=== PATIENT | female | born 1940 | race African-American/Black ===

== ENCOUNTER 2017-03-20 10:08 | Emergency (ER) | payer MEDICARE, BC ==
[~2017-03-20] VITALS: Ht 167.6 cm; Wt 100.0 kg
[~2017-03-20 10:08] MED LIST: ASPI-1159 PO; ATOR20TA PO; HYDR-3735 PO; LATA2.5D2 EACHEYE; LEVVL SQ; MECL25TA3 PO; NEBI10TA2 PO; NIFE60TA10 PO; OXYC-104 PO
[2017-03-20] MEDS ORDERED: ONDANSETRON HCL 4MG/2ML VIAL IV STA (11:29)
[2017-03-20] MEDS ORDERED: KETOROLAC 30MG/ML VIAL IV STA (11:29)
[2017-03-20 12:32] LABS: BASOPHILS % 1.1 % (0.0-2.0); EOSINOPHILS % 1.2 % (0.0-5.0); HEMATOCRIT. 33.9 % (36.0-48.0); HEMOGLOBIN. 11.3 g/dL (12.0-16.0); MEAN CORPUSCULAR HEMOGLOBIN 30.1 pg (28.0-32.0); MEAN CORPUSCULAR VOLUME 89.9 fL (81.0-99.0); MEAN PLATELET VOLUME 8.1 fl (7.4-10.4); MONOCYTES % 6.9 % (2.0-8.0); NEUTROPHILS % 63.8 % (40.0-76.0); PLATELET 217 x1000/uL (130-400); RED BLOOD CELL COUNT 3.77 mill/uL (4.2-5.4); RED CELL DISTRIBUTION WIDTH 14.8 % (11.6-14.6)
[2017-03-20 12:42] LABS: CHLORIDE 110 mEq/L (98-107)
[2017-03-20 12:44] LABS: D-DIMER 1.79 mg/L FEU (<0.50); INR 1.1; PARTIAL THROMBOPLASTIN TIME 28.4 sec (23.4-31.0); PROTHROMBIN TIME 11.2 sec (9.4-11.6)
[2017-03-20 12:50] LABS: CARBON DIOXIDE 23 mEq/L (21-32); TROPONIN I < 0.02 ng/mL (0.00-0.04)
[2017-03-20] MEDS ORDERED: ONDANSETRON HCL 4MG/2ML VIAL IV ONE (13:15)
[2017-03-20] MEDS ORDERED: MORPHINE SULFATE 4 MG/ML CPJ (NOT FOR IM USE) IV ONE (13:15)
[2017-03-20 15:08] LABS: CLARITY URINE CLEAR (CLEAR); COLOR URINE YELLOW (YELLOW); GLUCOSE URINE NEGATIVE (NEGATIVE); KETONES URINE NEGATIVE (NEGATIVE); LEUKOCYTE ESTERASE URINE TRACE (NEGATIVE); NITRITE URINE NEGATIVE (NEGATIVE); OCCULT BLOOD URINE NEGATIVE (NEGATIVE); PH URINE 6.5 (4.5-8.0); PROTEIN URINE 3+ (NEGATIVE); SPECIFIC GRAVITY URINE 1.015 (1.005-1.030); UROBILINOGEN URINE 0.2 E.U./dL (0.2-1.0)
[2017-03-20 15:54] VITALS: BP 162/76
== END 2017-03-20 16:08 | disposition home or self-care (01) ==
LOC: ER 11:00 → SUPCPDRO 13:24 → ER 16:08
DX: R07.89 Other chest pain (principal); N64.4 Mastodynia; N18.9 Chronic kidney disease, unspecified; E11.22 Type 2 diabetes mellitus with diabetic chronic kidney disease; I12.9 Hypertensive chronic kidney disease with stage 1 through stage 4 chronic kidney disease, or unspecified chronic kidney disease; Z79.4 Long term (current) use of insulin; Z79.82 Long term (current) use of aspirin; Z88.5 Allergy status to narcotic agent; Z96.659 Presence of unspecified artificial knee joint
CPT/HCPCS: 36415; 71010; 78582; 80053; 81001; 83690; 83880; 84484; 85025; 85379; 85610; 85730; 93005; 96374; 96375; 96376; 99285; A9540; A9558; J1885; J2270; J2405

== ENCOUNTER 2018-08-08 20:53 | Inpatient (IN) | payer MEDICARE, BC ==
[~2018-08-08] VITALS: Ht 182.9 cm; Wt 90.7 kg
[2018-08-08 22:09] LABS: BASOPHILS % 1.2 % (0.0-2.0); EOSINOPHILS % 4.7 % (0.0-5.0); HEMATOCRIT. 32.1 % (36.0-48.0); HEMOGLOBIN. 10.2 g/dL (12.0-16.0); LYMPHOCYTES % 32.3 % (20.0-50.0); MEAN CORPUSCULAR HEMOGLOBIN 29.7 pg (28.0-32.0); MEAN CORPUSCULAR VOLUME 92.9 fL (81.0-99.0); MEAN PLATELET VOLUME 7.9 fl (7.4-10.4); MONOCYTES % 9.9 % (2.0-8.0); NEUTROPHILS % 51.9 % (40.0-76.0); PLATELET 280 x1000/uL (130-400); RED BLOOD CELL COUNT 3.45 mill/uL (4.2-5.4); RED CELL DISTRIBUTION WIDTH 16.3 % (11.6-14.6)
[2018-08-08 22:15] LABS: CHLORIDE 109 mEq/L (98-107)
[2018-08-08 22:18] LABS: ETHANOL BLOOD < 10 mg/dL
[2018-08-08 23:45] LABS: CLARITY URINE CLEAR (CLEAR); COLOR URINE YELLOW (YELLOW); KETONES URINE NEGATIVE (NEGATIVE); LEUKOCYTE ESTERASE URINE 1+ (NEGATIVE); NITRITE URINE NEGATIVE (NEGATIVE); OCCULT BLOOD URINE TRACE (NEGATIVE); PROTEIN URINE 3+ (NEGATIVE); SPECIFIC GRAVITY URINE 1.019 (1.005-1.030); UROBILINOGEN URINE 0.2 E.U./dL (0.2-1.0)
[2018-08-08 23:55] LABS: *AMPHETAMINES SCREEN URINE NEGATIVE (NEGATIVE); *BARBITURATES SCREEN URINE NEGATIVE (NEGATIVE); *BENZODIAZEPINES SCREEN URINE NEGATIVE (NEGATIVE); *COCAINE SCREEN URINE NEGATIVE (NEGATIVE)
[2018-08-08 23:56] LABS: CANNABINOID URINE SCREEN NEGATIVE (NEGATIVE); METHADONE URINE SCREEN NEGATIVE (NEGATIVE); OPIATES URINE SCREEN PRESUMTIVE POSITIVE (NEGATIVE); PHENCYCLIDINE URINE SCREEN NEGATIVE (NEGATIVE)
[2018-08-09] MEDS ORDERED: IPRATROPIUM/ALBUTEROL 0.5-3(2.5)MG/3ML NEB INH PRN (01:00)
[2018-08-09] MEDS ORDERED: ACETAMINOPHEN 325MG TABLET PO PRN (01:00)
[2018-08-09] MEDS ORDERED: HYDROCODONE/ACETAMINOPHEN 5/325MG TABLET PO PRN (01:00)
[2018-08-09] MEDS ORDERED: MAGNESIUM/ALUMINUM HYDROXIDE/SIMETHICONE 30ML UDC PO PRN (01:00)
[2018-08-09] MEDS ORDERED: DOCUSATE SODIUM 100MG CAPSULE PO PRN (01:00)
[2018-08-09] MEDS ORDERED: NA PHOS,M-B/NA PHOS,DI-BA ENEMA 118ML PR PRN (01:00)
[2018-08-09] MEDS ORDERED: ACETAMINOPHEN 650MG/20.3ML UDC GT PRN (01:00)
[2018-08-09] MEDS ORDERED: ONDANSETRON HCL 4MG/2ML INJ IV PRN (01:00)
[2018-08-09] MEDS ORDERED: ACETAMINOPHEN 650MG SUPP PR PRN (01:00)
[2018-08-09] MEDS ORDERED: HYDROCODONE/ACETAMINOPHEN 10/325MG TABLET PO PRN (01:00)
[2018-08-09] MEDS: CLONIDINE 0.1MG TABLET PO PRN (01:46)
[2018-08-09 01:50] VITALS: BP 112/58
[2018-08-09] MEDS ORDERED: ACET-2178 MT (03:22)
[2018-08-09 04:00] VITALS: BP 113/63
[2018-08-09] MEDS: SODIUM CHLORIDE 0.45% 1,000 ML IV SCH ×2 (04:45→21:22)
[2018-08-09] MEDS: SODIUM CHLORIDE 0.9% INJ 3ML FLUSH IVF SCH ×3 (06:13→21:21)
[2018-08-09] MEDS ORDERED: DEXTROSE 50% WATER 50ML SYRINGE IV PRN (07:00)
[2018-08-09] MEDS: BLOOD SUGAR DIAGNOSTIC STRIP TEST SCH ×4 (07:27→21:20)
[2018-08-09] MEDS: INSULIN LISPRO 100 UNITS/ML SUBCUT SCH ×4 (07:27→21:00)
[2018-08-09 08:38] VITALS: BP 115/44
[2018-08-09] MEDS: ENOXAPARIN 30MG/0.3ML SYR SUBCUT SCH (09:53)
[2018-08-09 12:12] VITALS: BP 132/67
[2018-08-09] MEDS: AMLODIPINE 2.5MG TABLET PO SCH ×2 (13:18→21:20)
[2018-08-09 16:14] VITALS: BP 151/63
[2018-08-09 16:36] LABS: CHLORIDE 109 mEq/L (98-107)
[2018-08-09 16:45] LABS: EOSINOPHILS % 5.1 % (0.0-5.0); HEMOGLOBIN. 9.5 g/dL (12.0-16.0); LYMPHOCYTES % 43.6 % (20.0-50.0); MEAN CORPUSCULAR HEMOGLOBIN 29.7 pg (28.0-32.0); MEAN CORPUSCULAR VOLUME 93.7 fL (81.0-99.0); MEAN PLATELET VOLUME 8.4 fl (7.4-10.4); MONOCYTES % 10.3 % (2.0-8.0); PLATELET 241 x1000/uL (130-400); RED CELL DISTRIBUTION WIDTH 16.3 % (11.6-14.6)
[2018-08-09 20:00] VITALS: BP 144/75
[2018-08-09] MEDS: PANTOT AC/MIN OIL/PET HY-PHL OINT (AQUAPHOR) TOP SCH (21:22)
[2018-08-10] VITALS: BP 135/76
[2018-08-10 04:00] VITALS: BP 135/87
[2018-08-10] MEDS: SODIUM CHLORIDE 0.9% INJ 3ML FLUSH IVF SCH ×3 (06:00→22:00)
[2018-08-10] MEDS: BLOOD SUGAR DIAGNOSTIC STRIP TEST SCH ×4 (06:11→20:36)
[2018-08-10] MEDS: SODIUM CHLORIDE 0.45% 1,000 ML IV SCH ×2 (06:11→20:00)
[2018-08-10] MEDS: INSULIN LISPRO 100 UNITS/ML SUBCUT SCH ×4 (07:37→21:00)
[2018-08-10 08:00] VITALS: BP 188/78
[2018-08-10] MEDS: ENOXAPARIN 30MG/0.3ML SYR SUBCUT SCH (09:48)
[2018-08-10] MEDS: CLONIDINE 0.1MG TABLET PO PRN (09:48)
[2018-08-10] MEDS: AMLODIPINE 2.5MG TABLET PO SCH ×2 (09:48→21:00)
[2018-08-10] MEDS: PANTOT AC/MIN OIL/PET HY-PHL OINT (AQUAPHOR) TOP SCH ×2 (09:49→21:00)
[2018-08-10 10:02] LABS: BASOPHILS % 1.6 % (0.0-2.0); EOSINOPHILS % 5.2 % (0.0-5.0); HEMATOCRIT. 34.1 % (36.0-48.0); HEMOGLOBIN. 10.8 g/dL (12.0-16.0); LYMPHOCYTES % 29.6 % (20.0-50.0); MEAN CORPUSCULAR HEMOGLOBIN 29.6 pg (28.0-32.0); MEAN CORPUSCULAR VOLUME 93.7 fL (81.0-99.0); MEAN PLATELET VOLUME 8.1 fl (7.4-10.4); MONOCYTES % 11.2 % (2.0-8.0); NEUTROPHILS % 52.4 % (40.0-76.0); PLATELET 257 x1000/uL (130-400); RED BLOOD CELL COUNT 3.64 mill/uL (4.2-5.4); RED CELL DISTRIBUTION WIDTH 16.3 % (11.6-14.6)
[2018-08-10 10:27] LABS: CHLORIDE 107 mEq/L (98-107)
[2018-08-10 10:37] LABS: LDL CHOLESTEROL 73 mg/dL (5-100)
[2018-08-10 10:40] LABS: HDL CHOLESTEROL 66 mg/dL (40-59)
[2018-08-10 12:00] VITALS: BP 163/53
[2018-08-10] MEDS ORDERED: CALCIUM CARBONATE 500MG TABLET CHEW PO PRN (13:00)
[2018-08-10] MEDS ORDERED: NYSTATIN POWDER 15GM TOP SCH (13:00)
[2018-08-10] MEDS ORDERED: NEBIVOLOL HCL 5 MG TABLET PO SCH (14:45)
[2018-08-10] MEDS ORDERED: HYDRALAZINE 20MG/ML VIAL IV PRN (14:45)
[2018-08-10] MEDS: NYSTATIN POWDER 15GM TOP SCH ×2 (15:06→17:00)
[2018-08-10] MEDS: TRAMADOL 50MG TABLET PO PRN (15:07)
[2018-08-10] MEDS: NEBIVOLOL HCL 5 MG TABLET PO SCH ×2 (15:15→22:00)
[2018-08-10 16:00] VITALS: BP 166/77
[2018-08-10 20:00] VITALS: BP 110/80
[2018-08-10 21:51] LABS: CLARITY URINE CLEAR (CLEAR); COLOR URINE YELLOW (YELLOW); KETONES URINE NEGATIVE (NEGATIVE); LEUKOCYTE ESTERASE URINE NEGATIVE (NEGATIVE); NITRITE URINE NEGATIVE (NEGATIVE); OCCULT BLOOD URINE NEGATIVE (NEGATIVE); PROTEIN URINE 2+ (NEGATIVE); SPECIFIC GRAVITY URINE 1.012 (1.005-1.030); UROBILINOGEN URINE 0.2 E.U./dL (0.2-1.0)
[2018-08-11] VITALS: BP 136/59
[2018-08-11 04:00] VITALS: BP 110/86
[2018-08-11] MEDS: BLOOD SUGAR DIAGNOSTIC STRIP TEST SCH ×4 (07:30→20:48)
[2018-08-11] MEDS: INSULIN LISPRO 100 UNITS/ML SUBCUT SCH ×4 (07:31→21:00)
[2018-08-11 08:00] VITALS: BP 177/71
[2018-08-11 08:11] LABS: CHLORIDE 108 mEq/L (98-107)
[2018-08-11 08:19] LABS: BASOPHILS % 0.9 % (0.0-2.0); EOSINOPHILS % 5.9 % (0.0-5.0); HEMATOCRIT. 28.8 % (36.0-48.0); HEMOGLOBIN. 9.2 g/dL (12.0-16.0); LYMPHOCYTES % 31.5 % (20.0-50.0); MEAN CORPUSCULAR HEMOGLOBIN 29.9 pg (28.0-32.0); MEAN CORPUSCULAR VOLUME 93.3 fL (81.0-99.0); MEAN PLATELET VOLUME 8.2 fl (7.4-10.4); MONOCYTES % 12.1 % (2.0-8.0); NEUTROPHILS % 49.6 % (40.0-76.0); PLATELET 235 x1000/uL (130-400); RED BLOOD CELL COUNT 3.08 mill/uL (4.2-5.4); RED CELL DISTRIBUTION WIDTH 15.6 % (11.6-14.6)
[2018-08-11 09:53] LABS: PHOSPHORUS 4.2 mg/dL (2.5-4.9)
[2018-08-11] MEDS: PANTOT AC/MIN OIL/PET HY-PHL OINT (AQUAPHOR) TOP SCH ×2 (10:47→21:00)
[2018-08-11] MEDS: AMLODIPINE 2.5MG TABLET PO SCH ×2 (10:47→21:00)
[2018-08-11] MEDS: NYSTATIN POWDER 15GM TOP SCH ×3 (10:47→17:20)
[2018-08-11] MEDS: NEBIVOLOL HCL 5 MG TABLET PO SCH ×2 (10:47→21:00)
[2018-08-11] MEDS: ENOXAPARIN 30MG/0.3ML SYR SUBCUT SCH (10:48)
[2018-08-11] MEDS: SODIUM CHLORIDE 0.45% 1,000 ML IV SCH ×2 (10:48→22:40)
[2018-08-11 11:27] LABS: HEPATITIS B SURFACE ANTIGEN NEGATIVE
[2018-08-11 12:00] VITALS: BP 170/86
[2018-08-11] MEDS: DIPHENHYDRAMINE 50MG/ML VIAL IV PRN ×3 (13:22→22:15)
[2018-08-11] MEDS: SODIUM CHLORIDE 0.9% INJ 3ML FLUSH IVF SCH ×2 (13:23→22:00)
[2018-08-11 16:00] VITALS: BP 168/80
[2018-08-11 20:00] VITALS: BP 148/59
[2018-08-12] VITALS: BP 120/58
[2018-08-12 04:00] VITALS: BP 158/56
[2018-08-12] MEDS: SODIUM CHLORIDE 0.9% INJ 3ML FLUSH IVF SCH ×2 (06:00→13:53)
[2018-08-12] MEDS: BLOOD SUGAR DIAGNOSTIC STRIP TEST SCH ×2 (06:14→12:20)
[2018-08-12 07:06] LABS: BASOPHILS % 0.8 % (0.0-2.0); EOSINOPHILS % 2.8 % (0.0-5.0); HEMATOCRIT. 31.3 % (36.0-48.0); LYMPHOCYTES % 27.5 % (20.0-50.0); MEAN CORPUSCULAR HEMOGLOBIN 29.5 pg (28.0-32.0); MEAN CORPUSCULAR VOLUME 92.9 fL (81.0-99.0); MEAN PLATELET VOLUME 8.1 fl (7.4-10.4); MONOCYTES % 9.8 % (2.0-8.0); NEUTROPHILS % 59.1 % (40.0-76.0); PLATELET 254 x1000/uL (130-400); RED BLOOD CELL COUNT 3.37 mill/uL (4.2-5.4); RED CELL DISTRIBUTION WIDTH 16.1 % (11.6-14.6)
[2018-08-12] MEDS: INSULIN LISPRO 100 UNITS/ML SUBCUT SCH ×2 (07:50→12:50)
[2018-08-12 08:00] VITALS: BP 136/48
[2018-08-12] MEDS: NEBIVOLOL HCL 5 MG TABLET PO SCH (09:00)
[2018-08-12] MEDS: AMLODIPINE 2.5MG TABLET PO SCH (09:44)
[2018-08-12] MEDS: ENOXAPARIN 30MG/0.3ML SYR SUBCUT SCH (09:44)
[2018-08-12] MEDS: NYSTATIN POWDER 15GM TOP SCH ×2 (09:45→13:00)
[2018-08-12] MEDS: PANTOT AC/MIN OIL/PET HY-PHL OINT (AQUAPHOR) TOP SCH (09:45)
[2018-08-12] MEDS: TRAMADOL 50MG TABLET PO PRN (10:42)
[2018-08-12 12:00] VITALS: BP 156/63
[2018-08-12] MEDS: DIPHENHYDRAMINE 50MG/ML VIAL IV PRN (13:58)
[2018-08-12 14:27] VITALS: BP 136/48
== END 2018-08-12 16:20 | DRG 683 ==
LOC: ER 20:53 → 6WST 08-09 00:11 → EDBEDREQ 08-09 00:12 → ENRESERV 08-09 00:59
PROVIDERS: ADMIT Family Medicine; ATTEND Family Medicine
DX: N17.0 Acute kidney failure with tubular necrosis (principal); I13.0 Hypertensive heart and chronic kidney disease with heart failure and stage 1 through stage 4 chronic kidney disease, or unspecified chronic kidney disease; N39.0 Urinary tract infection, site not specified; N18.4 Chronic kidney disease, stage 4 (severe); N25.81 Secondary hyperparathyroidism of renal origin; E11.22 Type 2 diabetes mellitus with diabetic chronic kidney disease; E78.5 Hyperlipidemia, unspecified; H40.9 Unspecified glaucoma; D64.9 Anemia, unspecified; E66.9 Obesity, unspecified; R20.2 Paresthesia of skin; E11.649 Type 2 diabetes mellitus with hypoglycemia without coma; I44.4 Left anterior fascicular block; Z96.653 Presence of artificial knee joint, bilateral; R07.89 Other chest pain; G89.29 Other chronic pain; M54.5 Low back pain; I50.9 Heart failure, unspecified; Z82.49 Family history of ischemic heart disease and other diseases of the circulatory system; Z83.3 Family history of diabetes mellitus; Z88.6 Allergy status to analgesic agent; Z79.82 Long term (current) use of aspirin; Z79.899 Other long term (current) drug therapy; Z90.49 Acquired absence of other specified parts of digestive tract; Z68.27 Body mass index [BMI] 27.0-27.9, adult
CPT/HCPCS: 36415; 71045; 76770; 80048; 80061; 80305; 82962; 83735; 83970; 84100; 84134; 84443; 84484; 86803; 87340; 93005; 93306; 97116; 97162; 97166; 97530; 99285; C1893; G0482; J1200; J1650; J1815

== ENCOUNTER 2018-08-12 16:13 | Inpatient (IN) | payer MEDICARE, BC ==
[~2018-08-12] VITALS: Ht 152.4 cm; Wt 83.9 kg
[~2018-08-12 16:13] MED LIST changes: +ACET-2178 MT
[2018-08-12] MEDS ORDERED: HYDROXYZINE HCL 25 MG PO PRN (17:30)
[2018-08-12] MEDS ORDERED: DIPHENHYDRAMINE 50MG/ML VIAL IV PRN (17:30)
[2018-08-12] MEDS ORDERED: IPRATROPIUM/ALBUTEROL 0.5-3(2.5)MG/3ML NEB INH PRN (17:30)
[2018-08-12] MEDS ORDERED: CLONIDINE 0.1MG TABLET PO PRN (17:30)
[2018-08-12] MEDS ORDERED: MECLIZINE HCL 25 MG PO PRN (17:30)
[2018-08-12] MEDS ORDERED: NA PHOS,M-B/NA PHOS,DI-BA ENEMA 118ML PR PRN (17:30)
[2018-08-12] MEDS ORDERED: DOCUSATE SODIUM 100MG CAPSULE PO PRN (17:30)
[2018-08-12] MEDS ORDERED: MAGNESIUM/ALUMINUM HYDROXIDE/SIMETHICONE 30ML UDC PO PRN (17:30)
[2018-08-12] MEDS ORDERED: ENOXAPARIN 40MG/0.4ML SYR SUBCUT SCH (17:30)
[2018-08-12] MEDS ORDERED: ACETAMINOPHEN 325MG TABLET PO PRN (17:30)
[2018-08-12] MEDS ORDERED: ACETAMINOPHEN 650MG/20.3ML UDC GT PRN (17:30)
[2018-08-12] MEDS ORDERED: HYDROCODONE/ACETAMINOPHEN 5/325MG TABLET PO PRN (17:30)
[2018-08-12] MEDS ORDERED: GUAIFENESIN 200MG/10ML SUGAR FREE UDC PO PRN (17:30)
[2018-08-12] MEDS ORDERED: ONDANSETRON HCL 4MG/2ML INJ IV PRN (17:30)
[2018-08-12] MEDS ORDERED: ACETAMINOPHEN 650MG SUPP PR PRN (17:30)
[2018-08-12] MEDS ORDERED: MEDICATION NOT ON FORMULARY EA (Acetaminophen (Tylenol) 2 TAB) MT PRN (17:45)
[2018-08-12] MEDS ORDERED: DEXTROSE 50% WATER 50ML SYRINGE IV PRN (17:45)
[2018-08-12 18:12] VITALS: BP 168/75
[2018-08-12 18:22] VITALS: BP 168/75
[2018-08-12] MEDS ORDERED: LACTULOSE 20G/30ML UDC PO PRN (18:30)
[2018-08-12] MEDS ORDERED: TEMAZEPAM 15MG CAPSULE PO PRN (18:30)
[2018-08-12] MEDS ORDERED: MECLIZINE 25MG TABLET PO PRN (18:45)
[2018-08-12] MEDS ORDERED: HYDROXYZINE 25MG TABLET PO PRN (18:45)
[2018-08-12 20:00] VITALS: BP 194/84
[2018-08-12] MEDS: BLOOD SUGAR DIAGNOSTIC STRIP TEST SCH (21:00)
[2018-08-12] MEDS: NEBIVOLOL HCL 5 MG TABLET PO SCH (21:00)
[2018-08-12] MEDS ORDERED: INSULIN (BASAL) DETEMIR 100 UNITS/ML 10ML SUBCUT SCH (21:00)
[2018-08-12] MEDS ORDERED: INSULIN DETEMIR 25 UNIT SQ SCH (21:00)
[2018-08-12] MEDS: INSULIN LISPRO 100 UNITS/ML SUBCUT SCH (21:00)
[2018-08-12] MEDS: SODIUM CHLORIDE 0.9% INJ 3ML FLUSH IVF SCH (22:00)
[2018-08-13] MEDS: SODIUM CHLORIDE 0.9% INJ 3ML FLUSH IVF SCH ×2 (07:14→14:00)
[2018-08-13] MEDS: BLOOD SUGAR DIAGNOSTIC STRIP TEST SCH ×4 (07:14→21:15)
[2018-08-13 08:00] VITALS: BP 195/77
[2018-08-13] MEDS: ASPIRIN 81MG TABLET PO SCH (08:20)
[2018-08-13] MEDS: NIFEDIPINE XL 60MG TAB PO SCH (08:20)
[2018-08-13] MEDS: AMLODIPINE 5MG TABLET PO SCH (08:20)
[2018-08-13] MEDS: HYDRALAZINE HCL 25MG TABLET PO SCH ×3 (08:20→16:52)
[2018-08-13] MEDS: NEBIVOLOL HCL 5 MG TABLET PO SCH ×2 (08:21→21:20)
[2018-08-13] MEDS: ATORVASTATIN CALCIUM 20MG TABLET PO SCH (08:21)
[2018-08-13 08:32] LABS: BASOPHILS % 1.1 % (0.0-2.0); EOSINOPHILS % 4.7 % (0.0-5.0); HEMATOCRIT. 29.7 % (36.0-48.0); HEMOGLOBIN. 9.6 g/dL (12.0-16.0); MEAN CORPUSCULAR HEMOGLOBIN 29.9 pg (28.0-32.0); MEAN CORPUSCULAR VOLUME 92.5 fL (81.0-99.0); MEAN PLATELET VOLUME 8.3 fl (7.4-10.4); MONOCYTES % 13.3 % (2.0-8.0); NEUTROPHILS % 56.9 % (40.0-76.0); PLATELET 243 x1000/uL (130-400); RED BLOOD CELL COUNT 3.21 mill/uL (4.2-5.4); RED CELL DISTRIBUTION WIDTH 15.8 % (11.6-14.6)
[2018-08-13 08:43] LABS: CHLORIDE 109 mEq/L (98-107)
[2018-08-13] MEDS ORDERED: OXYCODONE HCL/ACETAMINOPHEN 5/325MG TABLET PO PRN (08:45)
[2018-08-13 08:52] LABS: LDL CHOLESTEROL 79 mg/dL (5-100)
[2018-08-13 08:53] LABS: HDL CHOLESTEROL 53 mg/dL (40-59)
[2018-08-13] MEDS ORDERED: MEDICATION NOT ON FORMULARY EA (Nebivolol Hcl (Bystolic) 10 MG) PO SCH (09:00)
[2018-08-13] MEDS ORDERED: NIFEDIPINE 60 MG PO SCH (09:00)
[2018-08-13] MEDS: INSULIN LISPRO 100 UNITS/ML SUBCUT SCH ×4 (09:00→21:15)
[2018-08-13] MEDS: ENOXAPARIN 30MG/0.3ML SYR SUBCUT SCH (09:39)
[2018-08-13] MEDS ORDERED: DIPHENHYDRAMINE 25MG CAPSULE PO PRN (13:30)
[2018-08-13] MEDS ORDERED: ONDANSETRON 4MG ODT PO PRN (13:30)
[2018-08-13 20:00] VITALS: BP 157/73
[2018-08-13] MEDS: LATANOPROST 0.005% OPHTH DROPS 2.5ML EACHEYE SCH (21:04)
[2018-08-13] MEDS: INSULIN GLARGINE UD 100 UNITS/ML SYR SUBCUT SCH (21:15)
[2018-08-13] MEDS ORDERED: DORZOLAMIDE 2% OPHTH 10 ML BOTTLE BOTHEYE SCH (22:00)
[2018-08-13] MEDS ORDERED: BRIMONIDINE 0.2% OPHTH DROPS 5ML BOTHEYE SCH (23:00)
[2018-08-13] MEDS: DORZOLAMIDE 2% OPHTH 10 ML BOTTLE BOTHEYE SCH (23:38)
[2018-08-14] MEDS: BLOOD SUGAR DIAGNOSTIC STRIP TEST SCH ×4 (06:41→21:00)
[2018-08-14 08:37] VITALS: BP 176/78
[2018-08-14] MEDS: NIFEDIPINE XL 60MG TAB PO SCH (08:51)
[2018-08-14] MEDS: AMLODIPINE 5MG TABLET PO SCH (08:51)
[2018-08-14] MEDS: ATORVASTATIN CALCIUM 20MG TABLET PO SCH (08:51)
[2018-08-14] MEDS: HYDRALAZINE HCL 25MG TABLET PO SCH ×3 (08:51→17:07)
[2018-08-14] MEDS: NEBIVOLOL HCL 5 MG TABLET PO SCH ×2 (08:52→22:09)
[2018-08-14] MEDS: DORZOLAMIDE 2% OPHTH 10 ML BOTTLE BOTHEYE SCH ×3 (08:52→17:07)
[2018-08-14] MEDS: ASPIRIN 81MG TABLET PO SCH (08:52)
[2018-08-14] MEDS: INSULIN LISPRO 100 UNITS/ML SUBCUT SCH ×4 (08:59→22:20)
[2018-08-14] MEDS: ENOXAPARIN 30MG/0.3ML SYR SUBCUT SCH (10:45)
[2018-08-14] MEDS: LATANOPROST 0.005% OPHTH DROPS 2.5ML EACHEYE SCH (17:08)
[2018-08-14 20:00] VITALS: BP 116/47
[2018-08-14] MEDS: INSULIN GLARGINE UD 100 UNITS/ML SYR SUBCUT SCH (22:19)
[2018-08-14] MEDS: BRIMONIDINE 0.2% OPHTH DROPS 5ML BOTHEYE SCH (22:30)
[2018-08-15] MEDS: BLOOD SUGAR DIAGNOSTIC STRIP TEST SCH ×4 (05:51→21:10)
[2018-08-15] MEDS: INSULIN LISPRO 100 UNITS/ML SUBCUT SCH ×4 (06:02→21:15)
[2018-08-15 08:00] VITALS: BP 124/67
[2018-08-15] MEDS: NEBIVOLOL HCL 5 MG TABLET PO SCH ×3 (09:00→20:04)
[2018-08-15 09:29] LABS: BASOPHILS % 0.5 % (0.0-2.0); EOSINOPHILS % 2.8 % (0.0-5.0); HEMOGLOBIN. 9.6 g/dL (12.0-16.0); LYMPHOCYTES % 30.2 % (20.0-50.0); MEAN CORPUSCULAR HEMOGLOBIN 29.9 pg (28.0-32.0); MEAN CORPUSCULAR VOLUME 93.2 fL (81.0-99.0); MEAN PLATELET VOLUME 8.5 fl (7.4-10.4); MONOCYTES % 13.9 % (2.0-8.0); NEUTROPHILS % 52.6 % (40.0-76.0); PLATELET 227 x1000/uL (130-400); RED BLOOD CELL COUNT 3.22 mill/uL (4.2-5.4); RED CELL DISTRIBUTION WIDTH 15.9 % (11.6-14.6)
[2018-08-15] MEDS: ATORVASTATIN CALCIUM 20MG TABLET PO SCH (09:38)
[2018-08-15] MEDS: NIFEDIPINE XL 60MG TAB PO SCH (09:39)
[2018-08-15] MEDS: ASPIRIN 81MG TABLET PO SCH (09:41)
[2018-08-15] MEDS: AMLODIPINE 5MG TABLET PO SCH (09:41)
[2018-08-15] MEDS: HYDRALAZINE HCL 25MG TABLET PO SCH ×3 (09:41→17:22)
[2018-08-15] MEDS: MEGESTROL ACETATE 400 MG/10 ML UDC PO SCH (09:42)
[2018-08-15] MEDS: BRIMONIDINE 0.2% OPHTH DROPS 5ML BOTHEYE SCH ×3 (09:42→17:47)
[2018-08-15] MEDS: DORZOLAMIDE 2% OPHTH 10 ML BOTTLE BOTHEYE SCH ×3 (09:42→17:47)
[2018-08-15 09:51] LABS: PHOSPHORUS 4.2 mg/dL (2.5-4.9)
[2018-08-15] MEDS: ENOXAPARIN 30MG/0.3ML SYR SUBCUT SCH (11:14)
[2018-08-15] MEDS ORDERED: FUROSEMIDE 40MG/4ML VIAL IVP NR (14:11)
[2018-08-15 16:21] LABS: BASOPHILS % 2.1 % (0.0-2.0); EOSINOPHILS % 2.3 % (0.0-5.0); HEMATOCRIT. 33.3 % (36.0-48.0); HEMOGLOBIN. 10.6 g/dL (12.0-16.0); LYMPHOCYTES % 39.1 % (20.0-50.0); MEAN CORPUSCULAR HEMOGLOBIN 29.5 pg (28.0-32.0); MEAN CORPUSCULAR VOLUME 93.2 fL (81.0-99.0); MEAN PLATELET VOLUME 8.5 fl (7.4-10.4); MONOCYTES % 11.8 % (2.0-8.0); NEUTROPHILS % 44.7 % (40.0-76.0); PLATELET 261 x1000/uL (130-400); RED BLOOD CELL COUNT 3.58 mill/uL (4.2-5.4); RED CELL DISTRIBUTION WIDTH 16.2 % (11.6-14.6)
[2018-08-15 16:26] LABS: CHLORIDE 107 mEq/L (98-107)
[2018-08-15] MEDS: LATANOPROST 0.005% OPHTH DROPS 2.5ML EACHEYE SCH (17:47)
[2018-08-15 20:00] VITALS: BP 108/63
[2018-08-15] MEDS: INSULIN GLARGINE UD 100 UNITS/ML SYR SUBCUT SCH (21:15)
[2018-08-16] MEDS: BLOOD SUGAR DIAGNOSTIC STRIP TEST SCH ×4 (06:17→21:27)
[2018-08-16] MEDS: INSULIN LISPRO 100 UNITS/ML SUBCUT SCH ×4 (06:31→21:34)
[2018-08-16 07:53] VITALS: BP 146/68
[2018-08-16] MEDS: DORZOLAMIDE 2% OPHTH 10 ML BOTTLE BOTHEYE SCH ×3 (09:22→16:51)
[2018-08-16] MEDS: BRIMONIDINE 0.2% OPHTH DROPS 5ML BOTHEYE SCH ×3 (09:23→16:51)
[2018-08-16] MEDS: ASPIRIN 81MG TABLET PO SCH (09:23)
[2018-08-16] MEDS: MEGESTROL ACETATE 400 MG/10 ML UDC PO SCH (09:23)
[2018-08-16] MEDS: ATORVASTATIN CALCIUM 20MG TABLET PO SCH (09:23)
[2018-08-16] MEDS: ENOXAPARIN 30MG/0.3ML SYR SUBCUT SCH (09:23)
[2018-08-16] MEDS: NIFEDIPINE XL 60MG TAB PO SCH (09:24)
[2018-08-16] MEDS: HYDRALAZINE HCL 25MG TABLET PO SCH ×3 (09:24→16:50)
[2018-08-16] MEDS: NEBIVOLOL HCL 5 MG TABLET PO SCH ×2 (09:24→20:59)
[2018-08-16] MEDS: AMLODIPINE 5MG TABLET PO SCH (09:24)
[2018-08-16] MEDS: LATANOPROST 0.005% OPHTH DROPS 2.5ML EACHEYE SCH (16:51)
[2018-08-16 20:00] VITALS: BP 145/46
[2018-08-16] MEDS: INSULIN GLARGINE UD 100 UNITS/ML SYR SUBCUT SCH (21:33)
[2018-08-17 08:23] VITALS: BP 173/78
[2018-08-17] MEDS ORDERED: POTASSIUM CHLORIDE 20MEQ TABLET SR PO NR (08:30)
[2018-08-17] MEDS: HYDRALAZINE HCL 25MG TABLET PO SCH ×3 (09:28→17:00)
[2018-08-17] MEDS: ASPIRIN 81MG TABLET PO SCH (09:28)
[2018-08-17] MEDS: MEGESTROL ACETATE 400 MG/10 ML UDC PO SCH (09:28)
[2018-08-17] MEDS: NIFEDIPINE XL 60MG TAB PO SCH (09:28)
[2018-08-17] MEDS: AMLODIPINE 5MG TABLET PO SCH (09:29)
[2018-08-17] MEDS: ATORVASTATIN CALCIUM 20MG TABLET PO SCH (09:29)
[2018-08-17] MEDS: NEBIVOLOL HCL 5 MG TABLET PO SCH ×2 (09:29→21:00)
[2018-08-17] MEDS: ENOXAPARIN 30MG/0.3ML SYR SUBCUT SCH (09:30)
[2018-08-17] MEDS: BRIMONIDINE 0.2% OPHTH DROPS 5ML BOTHEYE SCH ×3 (09:31→17:12)
[2018-08-17] MEDS: DORZOLAMIDE 2% OPHTH 10 ML BOTTLE BOTHEYE SCH ×3 (09:33→17:12)
[2018-08-17] MEDS: BLOOD SUGAR DIAGNOSTIC STRIP TEST SCH ×3 (11:15→21:13)
[2018-08-17] MEDS: INSULIN LISPRO 100 UNITS/ML SUBCUT SCH ×3 (12:47→21:00)
[2018-08-17] MEDS: LATANOPROST 0.005% OPHTH DROPS 2.5ML EACHEYE SCH (17:12)
[2018-08-17 20:00] VITALS: BP 118/67
[2018-08-17] MEDS: INSULIN GLARGINE UD 100 UNITS/ML SYR SUBCUT SCH (21:29)
[2018-08-18] MEDS: BLOOD SUGAR DIAGNOSTIC STRIP TEST SCH ×4 (05:59→21:24)
[2018-08-18] MEDS: INSULIN LISPRO 100 UNITS/ML SUBCUT SCH ×4 (06:00→21:33)
[2018-08-18 08:00] VITALS: BP 175/72
[2018-08-18] MEDS: NIFEDIPINE XL 60MG TAB PO SCH ×2 (09:00→09:17)
[2018-08-18] MEDS: ENOXAPARIN 30MG/0.3ML SYR SUBCUT SCH (09:16)
[2018-08-18] MEDS: DORZOLAMIDE 2% OPHTH 10 ML BOTTLE BOTHEYE SCH ×3 (09:16→17:51)
[2018-08-18] MEDS: BRIMONIDINE 0.2% OPHTH DROPS 5ML BOTHEYE SCH ×3 (09:16→17:51)
[2018-08-18] MEDS: AMLODIPINE 5MG TABLET PO SCH (09:17)
[2018-08-18] MEDS: ASPIRIN 81MG TABLET PO SCH (09:17)
[2018-08-18] MEDS: HYDRALAZINE HCL 25MG TABLET PO SCH ×3 (09:17→18:00)
[2018-08-18] MEDS: ATORVASTATIN CALCIUM 20MG TABLET PO SCH (09:17)
[2018-08-18] MEDS: MEGESTROL ACETATE 400 MG/10 ML UDC PO SCH (09:17)
[2018-08-18] MEDS: NEBIVOLOL HCL 5 MG TABLET PO SCH ×2 (09:18→21:00)
[2018-08-18] MEDS ORDERED: TRAMADOL 50MG TABLET PO PRN (12:00)
[2018-08-18] MEDS: LATANOPROST 0.005% OPHTH DROPS 2.5ML EACHEYE SCH (17:51)
[2018-08-18 20:00] VITALS: BP 112/68
[2018-08-18] MEDS: INSULIN GLARGINE UD 100 UNITS/ML SYR SUBCUT SCH (21:33)
[2018-08-19] MEDS: BLOOD SUGAR DIAGNOSTIC STRIP TEST SCH ×2 (06:07→12:11)
[2018-08-19] MEDS: INSULIN LISPRO 100 UNITS/ML SUBCUT SCH ×2 (06:10→12:18)
[2018-08-19 08:00] VITALS: BP 122/86
[2018-08-19] MEDS: BRIMONIDINE 0.2% OPHTH DROPS 5ML BOTHEYE SCH ×2 (08:45→13:27)
[2018-08-19] MEDS: MEGESTROL ACETATE 400 MG/10 ML UDC PO SCH (08:46)
[2018-08-19] MEDS: ATORVASTATIN CALCIUM 20MG TABLET PO SCH (08:46)
[2018-08-19] MEDS: NEBIVOLOL HCL 5 MG TABLET PO SCH (08:47)
[2018-08-19] MEDS: ASPIRIN 81MG TABLET PO SCH (08:47)
[2018-08-19] MEDS: AMLODIPINE 5MG TABLET PO SCH (08:48)
[2018-08-19] MEDS: NIFEDIPINE XL 60MG TAB PO SCH (08:48)
[2018-08-19] MEDS: HYDRALAZINE HCL 25MG TABLET PO SCH ×2 (08:48→13:00)
[2018-08-19] MEDS: DORZOLAMIDE 2% OPHTH 10 ML BOTTLE BOTHEYE SCH ×2 (08:50→13:27)
[2018-08-19] MEDS ORDERED: CALCITRIOL 0.25MCG CAPSULE PO SCH (09:00)
[2018-08-19] MEDS: ENOXAPARIN 30MG/0.3ML SYR SUBCUT SCH (10:22)
[2018-08-19 13:46] VITALS: BP 122/86
== END 2018-08-19 15:30 | disposition home health service (06) | DRG 683 ==
PROVIDERS: ADMIT Psychiatry & Neurology Neurology; ATTEND Family Medicine
DX: N17.9 Acute kidney failure, unspecified (principal); N39.0 Urinary tract infection, site not specified; E46 Unspecified protein-calorie malnutrition; I13.2 Hypertensive heart and chronic kidney disease with heart failure and with stage 5 chronic kidney disease, or end stage renal disease; R53.81 Other malaise; G89.29 Other chronic pain; M54.5 Low back pain; E11.22 Type 2 diabetes mellitus with diabetic chronic kidney disease; R07.89 Other chest pain; D64.9 Anemia, unspecified; E66.01 Morbid (severe) obesity due to excess calories; E78.5 Hyperlipidemia, unspecified; H40.9 Unspecified glaucoma; E11.42 Type 2 diabetes mellitus with diabetic polyneuropathy; I44.4 Left anterior fascicular block; I50.9 Heart failure, unspecified; J45.909 Unspecified asthma, uncomplicated; M13.0 Polyarthritis, unspecified; M54.17 Radiculopathy, lumbosacral region; Z96.653 Presence of artificial knee joint, bilateral; F32.9 Major depressive disorder, single episode, unspecified; N18.5 Chronic kidney disease, stage 5; Z79.4 Long term (current) use of insulin; Z79.82 Long term (current) use of aspirin; Z68.36 Body mass index [BMI] 36.0-36.9, adult
CPT/HCPCS: 36415; 71045; 80048; 80061; 80069; 82962; 83735; 83880; 84100; 84134; 85379; 93970; 97110; 97116; 97162; 97166; 97530; 97535; A6261; C1893; J1650; J1815; J1940; Q0163

== ENCOUNTER 2019-06-09 17:23 | Inpatient (IN) | payer MEDICARE, BC ==
[~2019-06-09] VITALS: Ht 177.8 cm; Wt 79.0 kg
[~2019-06-09 17:23] MED LIST changes: -ACET-2178 MT; -ASPI-1159 PO; +ASPI-1393 PO; +BRIM5DRO6 EACHEYE; +CALC0.253 MT; +CITA40TA11 MT; +DORZ10DR8 EACHEYE; +FURO20TA4 MT; +GABA-531 MT; +GLIM2TAB2 MT; +HYDR-4134 MT; +HYDR25TA MT; +ISOS20TA8 MT; -LATA2.5D2 EACHEYE; -LEVVL SQ; +MIRT15TA6 MT; -NIFE60TA10 PO; -OXYC-104 PO; +XALAO EACHEYE
[2019-06-09] MEDS ORDERED: GABAPENTIN 300MG CAPSULE PO ONE (18:45)
[2019-06-09 19:27] LABS: BASOPHILS % 1.3 % (0.0-2.0); EOSINOPHILS % 0.7 % (0.0-5.0); HEMATOCRIT. 33.8 % (36.0-48.0); HEMOGLOBIN. 11.4 g/dL (12.0-16.0); LYMPHOCYTES % 36.8 % (20.0-50.0); MEAN CORPUSCULAR HEMOGLOBIN 32.8 pg (28.0-32.0); MEAN CORPUSCULAR VOLUME 97.4 fL (81.0-99.0); MEAN PLATELET VOLUME 7.8 fl (7.4-10.4); MONOCYTES % 12.6 % (2.0-8.0); NEUTROPHILS % 48.6 % (40.0-76.0); PLATELET 193 x1000/uL (130-400); RED BLOOD CELL COUNT 3.46 mill/uL (4.2-5.4); RED CELL DISTRIBUTION WIDTH 13.1 % (11.6-14.6)
[2019-06-09 19:31] LABS: CHLORIDE 96 mEq/L (98-107)
[2019-06-09] MEDS ORDERED: DOCUSATE SODIUM 100MG CAPSULE PO PRN (21:15)
[2019-06-09] MEDS ORDERED: LORAZEPAM 0.5MG TABLET PO PRN (21:15)
[2019-06-09] MEDS ORDERED: ONDANSETRON HCL 4MG/2ML INJ IV PRN (21:15)
[2019-06-09] MEDS ORDERED: DIPHENHYDRAMINE 50MG/ML VIAL IV PRN (21:15)
[2019-06-09] MEDS ORDERED: ACETAMINOPHEN 325MG TABLET PO PRN (21:15)
[2019-06-09] MEDS ORDERED: HYDROXYZINE 25MG TABLET PO PRN (21:30)
[2019-06-09] MEDS ORDERED: GABAPENTIN 300MG CAPSULE PO SCH (21:30)
[2019-06-09] MEDS ORDERED: HYDRALAZINE HCL 25MG TABLET PO NR (23:45)
[2019-06-10] VITALS (7 sets, daily range): BP systolic 109–193; BP diastolic 47–79
[2019-06-10] MEDS ORDERED: DEXTROSE 50% WATER 50ML SYRINGE IV PRN (04:00)
[2019-06-10] MEDS ORDERED: ISOSORBIDE DINITRATE 20MG TABLET PO SCH (06:00)
[2019-06-10] MEDS: SODIUM CHLORIDE 0.9% INJ 3ML FLUSH IVF SCH ×3 (06:02→22:00)
[2019-06-10] MEDS: BLOOD SUGAR DIAGNOSTIC STRIP TEST SCH ×4 (06:02→22:00)
[2019-06-10] MEDS: INSULIN LISPRO 100 UNITS/ML SUBCUT SCH ×4 (06:03→22:17)
[2019-06-10] MEDS: CALCITRIOL 0.25MCG CAPSULE PO SCH (08:38)
[2019-06-10] MEDS: ASPIRIN 81MG EC TABLET PO SCH (08:39)
[2019-06-10] MEDS: HYDRALAZINE HCL 25MG TABLET PO SCH ×2 (08:39→21:00)
[2019-06-10] MEDS: GLIMEPIRIDE 2MG TABLET PO SCH ×2 (08:39→18:18)
[2019-06-10] MEDS: DORZOLAMIDE 2% OPHTH 10 ML BOTTLE EACHEYE SCH ×2 (08:40→18:18)
[2019-06-10] MEDS ORDERED: ENOXAPARIN 30MG/0.3ML SYR SUBCUT SCH ×2 (09:00→11:45)
[2019-06-10] MEDS ORDERED: HYDRALAZINE 20MG/ML VIAL IV PRN (11:30)
[2019-06-10] MEDS ORDERED: CLONIDINE 0.1MG TABLET PO PRN (11:30)
[2019-06-10] MEDS: NEBIVOLOL HCL 5 MG TABLET PO SCH ×2 (13:26→21:00)
[2019-06-10] MEDS: LOSARTAN POTASSIUM 25 MG TABLET PO SCH ×2 (13:26→21:00)
[2019-06-10] MEDS: NITROGLYCERIN OINT 1GM/INCH UDPKT TD SCH ×2 (13:27→18:18)
[2019-06-10] MEDS: GABAPENTIN 300MG CAPSULE PO SCH ×2 (16:14→21:59)
[2019-06-10] MEDS ORDERED: GABAPENTIN 300MG CAPSULE PO SCH (21:00)
[2019-06-10] MEDS: ATORVASTATIN CALCIUM 20MG TABLET PO SCH (21:59)
[2019-06-10] MEDS: MIRTAZAPINE 15MG TABLET PO SCH (21:59)
[2019-06-10] MEDS: BRIMONIDINE 0.2% OPHTH DROPS 5ML EACHEYE SCH (22:00)
[2019-06-10] MEDS: LATANOPROST 0.005% OPHTH DROPS 2.5ML EACHEYE SCH (22:01)
[2019-06-11] VITALS (20 sets, daily range): BP systolic 102–170; BP diastolic 41–93
[2019-06-11] MEDS: NITROGLYCERIN OINT 1GM/INCH UDPKT TD SCH ×3 (00:50→18:41)
[2019-06-11] MEDS: GABAPENTIN 300MG CAPSULE PO SCH ×3 (06:00→21:35)
[2019-06-11] MEDS: SODIUM CHLORIDE 0.9% INJ 3ML FLUSH IVF SCH ×3 (06:50→14:35)
[2019-06-11] MEDS: GLIMEPIRIDE 2MG TABLET PO SCH ×2 (07:40→18:41)
[2019-06-11] MEDS: INSULIN LISPRO 100 UNITS/ML SUBCUT SCH ×4 (07:48→21:00)
[2019-06-11] MEDS: BLOOD SUGAR DIAGNOSTIC STRIP TEST SCH ×4 (07:48→21:37)
[2019-06-11] MEDS: ASPIRIN 81MG EC TABLET PO SCH (07:50)
[2019-06-11 07:59] LABS: HEMATOCRIT. 30.5 % (36.0-48.0); HEMOGLOBIN. 10.2 g/dL (12.0-16.0); MEAN CORPUSCULAR HEMOGLOBIN 32.8 pg (28.0-32.0); MEAN CORPUSCULAR VOLUME 97.7 fL (81.0-99.0); MEAN PLATELET VOLUME 8.3 fl (7.4-10.4); PLATELET 194 x1000/uL (130-400); RED BLOOD CELL COUNT 3.12 mill/uL (4.2-5.4); RED CELL DISTRIBUTION WIDTH 13.2 % (11.6-14.6)
[2019-06-11 08:05] LABS: CHLORIDE 98 mEq/L (98-107)
[2019-06-11 08:15] LABS: LDL CHOLESTEROL 92 mg/dL (5-100)
[2019-06-11 08:17] LABS: HDL CHOLESTEROL 52 mg/dL (40-59)
[2019-06-11] MEDS: BRIMONIDINE 0.2% OPHTH DROPS 5ML EACHEYE SCH ×2 (08:30→20:56)
[2019-06-11] MEDS: DORZOLAMIDE 2% OPHTH 10 ML BOTTLE EACHEYE SCH ×2 (08:30→18:42)
[2019-06-11] MEDS: CALCITRIOL 0.25MCG CAPSULE PO SCH (08:31)
[2019-06-11] MEDS: HYDRALAZINE HCL 25MG TABLET PO SCH ×2 (08:31→21:00)
[2019-06-11] MEDS: NEBIVOLOL HCL 5 MG TABLET PO SCH ×2 (08:31→21:00)
[2019-06-11] MEDS: LOSARTAN POTASSIUM 25 MG TABLET PO SCH ×2 (08:32→21:00)
[2019-06-11] MEDS ORDERED: LIDOCAINE HCL 1% 20ML VIAL (Pyxis) INJ ONE (11:37)
[2019-06-11] MEDS ORDERED: IODIXANOL 320MG/ML 100 ML BOTTLE IV ONE (11:38)
[2019-06-11] MEDS ORDERED: ASPIRIN/SOD BICARB/CITRIC ACID 324MG TAB EFF ONE (12:05)
[2019-06-11] MEDS ORDERED: MIDAZOLAM HCL 2 MG/2 ML VIAL ONE (12:09)
[2019-06-11 12:10] LABS: PLATELET ESTIMATE NORMAL
[2019-06-11] MEDS ORDERED: FENTANYL CITRATE/PF 50MCG/ML 2ML VIAL ONE (12:10)
[2019-06-11] MEDS ORDERED: ONDANSETRON HCL 4MG/2ML INJ IV PRN (12:45)
[2019-06-11] MEDS ORDERED: ACETAMINOPHEN 325MG TABLET PO PRN (12:45)
[2019-06-11] MEDS ORDERED: ATROPINE SULFATE 1MG/10ML SYR IV PRN (12:45)
[2019-06-11] MEDS ORDERED: MORPHINE SULFATE 2 MG/ML CPJ (NOT FOR IM USE) IV PRN (12:45)
[2019-06-11] MEDS: ATORVASTATIN CALCIUM 20MG TABLET PO SCH (20:55)
[2019-06-11] MEDS: LATANOPROST 0.005% OPHTH DROPS 2.5ML EACHEYE SCH (20:56)
[2019-06-11] MEDS: MIRTAZAPINE 15MG TABLET PO SCH (21:35)
[2019-06-12] VITALS (15 sets, daily range): BP systolic 100–147; BP diastolic 49–82
[2019-06-12] MEDS: NITROGLYCERIN OINT 1GM/INCH UDPKT TD SCH ×3 (00:28→12:26)
[2019-06-12] MEDS: SODIUM CHLORIDE 0.9% INJ 3ML FLUSH IVF SCH (06:00)
[2019-06-12] MEDS: GABAPENTIN 300MG CAPSULE PO SCH ×2 (06:00→13:52)
[2019-06-12] MEDS: BLOOD SUGAR DIAGNOSTIC STRIP TEST SCH ×2 (06:19→12:24)
[2019-06-12] MEDS: GLIMEPIRIDE 2MG TABLET PO SCH (06:25)
[2019-06-12] MEDS: INSULIN LISPRO 100 UNITS/ML SUBCUT SCH ×2 (07:20→12:20)
[2019-06-12 07:23] LABS: HEMATOCRIT. 33.5 % (36.0-48.0); HEMOGLOBIN. 11.1 g/dL (12.0-16.0); MEAN CORPUSCULAR HEMOGLOBIN 32.6 pg (28.0-32.0); PLATELET 192 x1000/uL (130-400); RED BLOOD CELL COUNT 3.42 mill/uL (4.2-5.4); RED CELL DISTRIBUTION WIDTH 13.9 % (11.6-14.6)
[2019-06-12 07:47] LABS: T4 FREE 1.12 ng/dL (0.76-1.46)
[2019-06-12] MEDS: HYDRALAZINE HCL 25MG TABLET PO SCH (10:05)
[2019-06-12] MEDS: DORZOLAMIDE 2% OPHTH 10 ML BOTTLE EACHEYE SCH (10:05)
[2019-06-12] MEDS: BRIMONIDINE 0.2% OPHTH DROPS 5ML EACHEYE SCH (10:05)
[2019-06-12] MEDS: NEBIVOLOL HCL 5 MG TABLET PO SCH (10:06)
[2019-06-12] MEDS: CALCITRIOL 0.25MCG CAPSULE PO SCH (10:06)
[2019-06-12] MEDS: LOSARTAN POTASSIUM 25 MG TABLET PO SCH (10:06)
[2019-06-12] MEDS: ASPIRIN 81MG EC TABLET PO SCH (10:06)
[2019-06-12 12:26] LABS: NUCLEATED RED BLOOD CELLS 1 /100 WBC; PLATELET ESTIMATE NORMAL
== END 2019-06-12 14:52 | disposition home or self-care (01) | DRG 286 ==
LOC: ER 17:33 → 7WST 19:59 → EDBEDREQ 20:07 → EDBEDREQTM 20:07 → ENRESERV 06-10 00:51 → 3WST 06-11 13:31
PROVIDERS: ADMIT Internal Medicine Nephrology; ATTEND Internal Medicine Nephrology
PROC: 4A023N7 Measurement of Cardiac Sampling and Pressure, Left Heart, Percutaneous Approach (ICD-10-PCS; principal; 2019-06-11)
PROC: B2111ZZ Fluoroscopy of Multiple Coronary Arteries using Low Osmolar Contrast (ICD-10-PCS; 2019-06-11)
PROC: B2151ZZ Fluoroscopy of Left Heart using Low Osmolar Contrast (ICD-10-PCS; 2019-06-11)
PROC: 5A1D70Z Performance of Urinary Filtration, Intermittent, Less than 6 Hours Per Day (ICD-10-PCS; 2019-06-11)
DX: I25.110 Atherosclerotic heart disease of native coronary artery with unstable angina pectoris (principal); N18.6 End stage renal disease; I50.32 Chronic diastolic (congestive) heart failure; I13.2 Hypertensive heart and chronic kidney disease with heart failure and with stage 5 chronic kidney disease, or end stage renal disease; I43 Cardiomyopathy in diseases classified elsewhere; D63.8 Anemia in other chronic diseases classified elsewhere; E03.9 Hypothyroidism, unspecified; E11.22 Type 2 diabetes mellitus with diabetic chronic kidney disease; E11.40 Type 2 diabetes mellitus with diabetic neuropathy, unspecified; E78.5 Hyperlipidemia, unspecified; F32.9 Major depressive disorder, single episode, unspecified; E78.00 Pure hypercholesterolemia, unspecified; M19.90 Unspecified osteoarthritis, unspecified site; M48.061 Spinal stenosis, lumbar region without neurogenic claudication; Z96.653 Presence of artificial knee joint, bilateral; F41.9 Anxiety disorder, unspecified; G89.29 Other chronic pain; M54.16 Radiculopathy, lumbar region; Z79.4 Long term (current) use of insulin; Z79.82 Long term (current) use of aspirin; Z79.899 Other long term (current) drug therapy; Z82.49 Family history of ischemic heart disease and other diseases of the circulatory system; Z83.3 Family history of diabetes mellitus; Z99.2 Dependence on renal dialysis; Z88.1 Allergy status to other antibiotic agents; Z88.8 Allergy status to other drugs, medicaments and biological substances; Z90.49 Acquired absence of other specified parts of digestive tract
CPT/HCPCS: 36415; 71045; 80048; 80061; 82962; 83036; 83520; 83735; 83880; 84100; 84439; 84443; 84481; 84484; 93005; 93458; 96372; 99285; C1769; C1893; J1644; J1650; J2250; J3010; J3490; Q9967

== ENCOUNTER 2019-10-13 12:40 | Inpatient (IN) | payer MEDICARE, BC ==
[~2019-10-13] VITALS: Ht 167.6 cm; Wt 84.1 kg
[~2019-10-13 12:40] MED LIST changes: -ASPI-1393 PO; +ASPI-1497 PO; -GLIM2TAB2 MT; +GLIM2TAB30 MT
[2019-10-13 15:13] LABS: CHLORIDE 104 mEq/L (98-107)
[2019-10-13 15:14] LABS: HEMATOCRIT. 27.3 % (36.0-48.0); HEMOGLOBIN. 9.2 g/dL (12.0-16.0); MEAN CORPUSCULAR HEMOGLOBIN 34.5 pg (28.0-32.0); MEAN CORPUSCULAR VOLUME 102.6 fL (81.0-99.0); MEAN PLATELET VOLUME 7.8 fl (7.4-10.4); PLATELET 197 x1000/uL (130-400); RED BLOOD CELL COUNT 2.67 mill/uL (4.2-5.4); RED CELL DISTRIBUTION WIDTH 14.6 % (11.6-14.6)
[2019-10-13 15:15] LABS: PROTHROMBIN TIME 11.3 sec (9.6-11.0)
[2019-10-13 16:50] LABS: PLATELET ESTIMATE NORMAL
[2019-10-13] MEDS ORDERED: CLONIDINE 0.1MG TABLET PO NR (17:15)
[2019-10-13 18:15] VITALS: BP 164/75
[2019-10-13] MEDS ORDERED: CLONIDINE 0.1MG TABLET PO PRN (18:30)
[2019-10-13] MEDS ORDERED: ENOXAPARIN 40MG/0.4ML SYR SUBCUT SCH (18:30)
[2019-10-13] MEDS ORDERED: MAGNESIUM/ALUMINUM HYDROXIDE/SIMETHICONE 30ML UDC PO PRN (18:30)
[2019-10-13] MEDS ORDERED: DIPHENHYDRAMINE 50MG/ML VIAL IV PRN (18:30)
[2019-10-13] MEDS ORDERED: DEXTROSE 50% WATER 50ML SYRINGE IV PRN (18:30)
[2019-10-13] MEDS ORDERED: ONDANSETRON HCL 4MG/2ML INJ IV PRN (18:30)
[2019-10-13] MEDS ORDERED: ZOLPIDEM TARTRATE 5MG TABLET PO PRN (18:30)
[2019-10-13] MEDS ORDERED: ACETAMINOPHEN 325MG TABLET PO PRN ×2 (18:30)
[2019-10-13] MEDS ORDERED: HYDRALAZINE 20MG/ML VIAL IV PRN (18:30)
[2019-10-13] MEDS ORDERED: GUAIFENESIN-DM 200MG-20MG/10ML UDC PO PRN (19:15)
[2019-10-13 20:00] VITALS: BP 171/66
[2019-10-13] MEDS: INSULIN LISPRO 100 UNITS/ML SUBCUT SCH (21:00)
[2019-10-13] MEDS: LOSARTAN POTASSIUM 25 MG TABLET PO SCH (21:00)
[2019-10-13] MEDS: HYDRALAZINE HCL 25MG TABLET PO SCH (21:00)
[2019-10-13] MEDS: NEBIVOLOL HCL 5 MG TABLET PO SCH (21:00)
[2019-10-13] MEDS: SODIUM CHLORIDE 0.9% INJ 3ML FLUSH IVF SCH (21:53)
[2019-10-13] MEDS: ENOXAPARIN 30MG/0.3ML SYR SUBCUT SCH (21:53)
[2019-10-13] MEDS: ATORVASTATIN CALCIUM 20MG TABLET PO SCH (21:53)
[2019-10-13] MEDS: BLOOD SUGAR DIAGNOSTIC STRIP TEST SCH (21:54)
[2019-10-13] MEDS ORDERED: GABAPENTIN 300MG CAPSULE PO SCH (22:00)
[2019-10-13] MEDS: LATANOPROST 0.005% OPHTH DROPS 2.5ML BOTHEYE SCH (22:15)
[2019-10-13] MEDS: BRIMONIDINE 0.2% OPHTH DROPS 5ML BOTHEYE SCH (22:15)
[2019-10-13] MEDS: DORZOLAMIDE 2% OPHTH 10 ML BOTTLE BOTHEYE SCH (22:15)
[2019-10-14] MEDS ORDERED: HEPARIN SODIUM 1,000 UNIT/1ML VIAL IV NR (02:30)
[2019-10-14] MEDS: ALBUTEROL (0.083%) 2.5MG/3ML NEB HHN SCH ×4 (02:33→16:15)
[2019-10-14 04:00] VITALS: BP 109/59
[2019-10-14] MEDS: SODIUM CHLORIDE 0.9% INJ 3ML FLUSH IVF SCH ×2 (06:09→21:34)
[2019-10-14] MEDS: BLOOD SUGAR DIAGNOSTIC STRIP TEST SCH ×4 (07:32→21:43)
[2019-10-14] MEDS ORDERED: GABAPENTIN 300MG CAPSULE PO SCH (07:40)
[2019-10-14 08:00] VITALS: BP 123/53
[2019-10-14] MEDS: INSULIN LISPRO 100 UNITS/ML SUBCUT SCH ×3 (08:10→21:48)
[2019-10-14] MEDS: CALCITRIOL 0.25MCG CAPSULE PO SCH (09:27)
[2019-10-14] MEDS: LOSARTAN POTASSIUM 25 MG TABLET PO SCH ×2 (09:27→21:06)
[2019-10-14] MEDS: HYDRALAZINE HCL 25MG TABLET PO SCH ×2 (09:27→21:06)
[2019-10-14] MEDS: ASPIRIN 81MG EC TABLET PO SCH (09:27)
[2019-10-14] MEDS: BRIMONIDINE 0.2% OPHTH DROPS 5ML BOTHEYE SCH ×2 (09:28→21:07)
[2019-10-14] MEDS: DORZOLAMIDE 2% OPHTH 10 ML BOTTLE BOTHEYE SCH ×2 (09:28→21:07)
[2019-10-14] MEDS: NEBIVOLOL HCL 5 MG TABLET PO SCH ×2 (09:31→21:13)
[2019-10-14 09:32] LABS: BASOPHILS % 0.8 % (0.0-2.0); EOSINOPHILS % 1.4 % (0.0-5.0); HEMATOCRIT. 26.1 % (36.0-48.0); HEMOGLOBIN. 8.9 g/dL (12.0-16.0); LYMPHOCYTES % 29.2 % (20.0-50.0); MEAN CORPUSCULAR HEMOGLOBIN 34.5 pg (28.0-32.0); MEAN CORPUSCULAR VOLUME 101.2 fL (81.0-99.0); MEAN PLATELET VOLUME 7.2 fl (7.4-10.4); MONOCYTES % 12.3 % (2.0-8.0); NEUTROPHILS % 56.3 % (40.0-76.0); PLATELET 190 x1000/uL (130-400); RED BLOOD CELL COUNT 2.58 mill/uL (4.2-5.4); RED CELL DISTRIBUTION WIDTH 14.7 % (11.6-14.6)
[2019-10-14 09:47] LABS: PHOSPHORUS 3.2 mg/dL (2.5-4.9)
[2019-10-14 12:29] VITALS: BP 95/46
[2019-10-14 16:14] VITALS: BP 107/46
[2019-10-14 20:00] VITALS: BP 125/48
[2019-10-14] MEDS: ATORVASTATIN CALCIUM 20MG TABLET PO SCH (21:06)
[2019-10-14] MEDS: LATANOPROST 0.005% OPHTH DROPS 2.5ML BOTHEYE SCH (21:07)
[2019-10-14] MEDS: ENOXAPARIN 30MG/0.3ML SYR SUBCUT SCH (21:08)
[2019-10-15] VITALS (7 sets, daily range): BP systolic 94–131; BP diastolic 46–61
[2019-10-15] MEDS: BLOOD SUGAR DIAGNOSTIC STRIP TEST SCH ×2 (07:47→13:32)
[2019-10-15] MEDS: INSULIN LISPRO 100 UNITS/ML SUBCUT SCH ×2 (07:47→13:10)
[2019-10-15] MEDS: ALBUTEROL (0.083%) 2.5MG/3ML NEB HHN SCH ×2 (08:30→12:38)
[2019-10-15] MEDS: DORZOLAMIDE 2% OPHTH 10 ML BOTTLE BOTHEYE SCH (08:45)
[2019-10-15] MEDS: BRIMONIDINE 0.2% OPHTH DROPS 5ML BOTHEYE SCH (08:45)
[2019-10-15] MEDS: ASPIRIN 81MG EC TABLET PO SCH (08:50)
[2019-10-15] MEDS: CALCITRIOL 0.25MCG CAPSULE PO SCH (08:50)
[2019-10-15] MEDS: HYDRALAZINE HCL 25MG TABLET PO SCH (09:00)
[2019-10-15] MEDS: LOSARTAN POTASSIUM 25 MG TABLET PO SCH (09:00)
[2019-10-15] MEDS: NEBIVOLOL HCL 5 MG TABLET PO SCH (09:00)
[2019-10-15] MEDS: SODIUM CHLORIDE 0.9% INJ 3ML FLUSH IVF SCH (17:04)
== END 2019-10-15 21:05 | disposition home or self-care (01) | DRG 70 ==
LOC: ER 12:40 → 7WST 16:23 → EDBEDREQ 16:27 → ENRESERV 16:59
PROVIDERS: ADMIT Internal Medicine; ATTEND Internal Medicine
PROC: 5A1D70Z Performance of Urinary Filtration, Intermittent, Less than 6 Hours Per Day (ICD-10-PCS; principal; 2019-10-13)
PROC: 5A1D70Z Performance of Urinary Filtration, Intermittent, Less than 6 Hours Per Day (ICD-10-PCS; 2019-10-14)
DX: G93.41 Metabolic encephalopathy (principal); N18.6 End stage renal disease; I13.2 Hypertensive heart and chronic kidney disease with heart failure and with stage 5 chronic kidney disease, or end stage renal disease; I50.32 Chronic diastolic (congestive) heart failure; I43 Cardiomyopathy in diseases classified elsewhere; G25.9 Extrapyramidal and movement disorder, unspecified; I25.10 Atherosclerotic heart disease of native coronary artery without angina pectoris; M47.817 Spondylosis without myelopathy or radiculopathy, lumbosacral region; Z99.2 Dependence on renal dialysis; Z96.653 Presence of artificial knee joint, bilateral; G62.9 Polyneuropathy, unspecified; E11.22 Type 2 diabetes mellitus with diabetic chronic kidney disease; G89.29 Other chronic pain
CPT/HCPCS: 36415; 71045; 80048; 80053; 82962; 83036; 83605; 83735; 84100; 84484; 85025; 93005; 95816; 99285; J1644; J1650; J1815

== ENCOUNTER 2020-03-17 10:18 | Emergency (ER) | payer MEDICARE, BC ==
[~2020-03-17] VITALS: Ht 172.7 cm; Wt 73.0 kg
[~2020-03-17 10:18] MED LIST changes: -GABA-531 MT
[2020-03-17 11:28] LABS: BASOPHILS % 0.5 % (0.0-2.0); EOSINOPHILS % 2.3 % (0.0-5.0); HEMATOCRIT. 31.2 % (36.0-48.0); HEMOGLOBIN. 10.4 g/dL (12.0-16.0); LYMPHOCYTES % 38.9 % (20.0-50.0); MEAN CORPUSCULAR HEMOGLOBIN 31.4 pg (28.0-32.0); MEAN CORPUSCULAR VOLUME 94.3 fL (81.0-99.0); MEAN PLATELET VOLUME 6.8 fl (7.4-10.4); MONOCYTES % 11.7 % (2.0-8.0); NEUTROPHILS % 46.6 % (40.0-76.0); PLATELET 218 x1000/uL (130-400); RED CELL DISTRIBUTION WIDTH 16.6 % (11.6-14.6)
[2020-03-17 11:33] LABS: CHLORIDE 104 mEq/L (98-107)
[2020-03-17 12:00] VITALS: BP 148/78
== END 2020-03-17 12:00 | disposition home or self-care (01) ==
LOC: ER 10:18
DX: I12.9 Hypertensive chronic kidney disease with stage 1 through stage 4 chronic kidney disease, or unspecified chronic kidney disease (principal); E11.22 Type 2 diabetes mellitus with diabetic chronic kidney disease; N18.9 Chronic kidney disease, unspecified; Z20.828 Contact with and (suspected) exposure to other viral communicable diseases; Z88.6 Allergy status to analgesic agent; Z88.0 Allergy status to penicillin; Z79.899 Other long term (current) drug therapy; Z79.82 Long term (current) use of aspirin; Z98.890 Other specified postprocedural states
CPT/HCPCS: 36415; 71045; 80053; 85025; 87635; 93005; 99285; C9803

== ENCOUNTER 2020-03-19 09:41 | Inpatient (IN) | payer MEDICARE, BC ==
[~2020-03-19] VITALS: Ht 182.9 cm; Wt 74.8 kg
[2020-03-19 10:26] LABS: BASOPHILS % 0.5 % (0.0-2.0); EOSINOPHILS % 2.3 % (0.0-5.0); HEMATOCRIT. 28.7 % (36.0-48.0); HEMOGLOBIN. 9.6 g/dL (12.0-16.0); LYMPHOCYTES % 32.9 % (20.0-50.0); MEAN CORPUSCULAR VOLUME 95.3 fL (81.0-99.0); MEAN PLATELET VOLUME 6.9 fl (7.4-10.4); MONOCYTES % 9.1 % (2.0-8.0); NEUTROPHILS % 55.2 % (40.0-76.0); PLATELET 213 x1000/uL (130-400); RED BLOOD CELL COUNT 3.01 mill/uL (4.2-5.4); RED CELL DISTRIBUTION WIDTH 16.7 % (11.6-14.6)
[2020-03-19 10:33] LABS: CHLORIDE 102 mEq/L (98-107)
[2020-03-19] MEDS ORDERED: SODIUM CHLORIDE 0.9% 500 ML IV ONE (13:26)
[2020-03-19] MEDS ORDERED: CLONIDINE 0.1MG TABLET PO PRN (13:45)
[2020-03-19] MEDS ORDERED: ACETAMINOPHEN 325MG TABLET PO PRN (13:45)
[2020-03-19] MEDS ORDERED: MAGNESIUM/ALUMINUM HYDROXIDE/SIMETHICONE 30ML UDC PO PRN (13:45)
[2020-03-19] MEDS ORDERED: ONDANSETRON HCL 4MG/2ML INJ IV PRN (13:45)
[2020-03-19] MEDS ORDERED: HYDRALAZINE 20MG/ML VIAL IV PRN (13:45)
[2020-03-19] MEDS: PANTOPRAZOLE SODIUM 40 MG/VIAL IV SCH (14:06)
[2020-03-19 20:38] LABS: TOTAL IRON BINDING CAPACITY 218 ug/dL (250-450)
[2020-03-19 21:14] LABS: VITAMIN B12 SERUM 614 pg/mL (211-911)
[2020-03-19 21:25] LABS: FERRITIN 1515 ng/mL (10-291)
[2020-03-20 01:31] LABS: FOLIC ACID (FOLATE) SERUM 10.6 ng/mL (>5.38)
[2020-03-20 03:10] VITALS: BP 152/67
[2020-03-20 03:30] VITALS: BP 152/67
[2020-03-20] MEDS: BLOOD SUGAR DIAGNOSTIC STRIP TEST SCH ×4 (05:53→21:03)
[2020-03-20] MEDS: INSULIN LISPRO 100 UNITS/ML SUBCUT SCH ×4 (05:53→21:00)
[2020-03-20 08:00] VITALS: BP 161/71
[2020-03-20] MEDS: PANTOPRAZOLE SODIUM 40 MG/VIAL IV SCH (09:02)
[2020-03-20] MEDS: AMLODIPINE 10MG TABLET PO SCH (09:03)
[2020-03-20] MEDS: CALCIUM ACETATE 667MG CAPSULE PO SCH ×2 (11:43→17:37)
[2020-03-20 12:00] VITALS: BP 139/80
[2020-03-20 13:29] LABS: BASOPHILS % 1.3 % (0.0-2.0); EOSINOPHILS % 2.5 % (0.0-5.0); HEMATOCRIT. 28.6 % (36.0-48.0); HEMOGLOBIN. 9.6 g/dL (12.0-16.0); LYMPHOCYTES % 37.1 % (20.0-50.0); MEAN CORPUSCULAR HEMOGLOBIN 31.8 pg (28.0-32.0); MEAN CORPUSCULAR VOLUME 94.2 fL (81.0-99.0); MEAN PLATELET VOLUME 7.6 fl (7.4-10.4); MONOCYTES % 11.8 % (2.0-8.0); NEUTROPHILS % 47.3 % (40.0-76.0); PLATELET 213 x1000/uL (130-400); RED BLOOD CELL COUNT 3.03 mill/uL (4.2-5.4); RED CELL DISTRIBUTION WIDTH 16.7 % (11.6-14.6)
[2020-03-20 13:33] LABS: CHLORIDE 105 mEq/L (98-107)
[2020-03-20 13:36] LABS: INR 1.1; PROTHROMBIN TIME 11.5 sec (9.6-11.0)
[2020-03-20 16:00] VITALS: BP 127/76
[2020-03-20] MEDS: GLIMEPIRIDE 2MG TABLET PO SCH (17:37)
[2020-03-20] MEDS: DORZOLAMIDE 2% OPHTH 10 ML BOTTLE EACHEYE SCH (17:38)
[2020-03-20] MEDS ORDERED: GABA-531 MT (17:52)
[2020-03-20 20:00] VITALS: BP 148/60
[2020-03-20] MEDS: ATORVASTATIN CALCIUM 20MG TABLET PO SCH (21:07)
[2020-03-20] MEDS: LATANOPROST 0.005% OPHTH DROPS 2.5ML EACHEYE SCH (21:08)
[2020-03-20] MEDS: MIRTAZAPINE 15MG TABLET PO SCH (21:12)
[2020-03-21] VITALS: BP 128/53
[2020-03-21 04:00] VITALS: BP 152/60
[2020-03-21] MEDS: DEXTROSE 50% WATER 50ML SYRINGE IV PRN ×2 (05:32→11:46)
[2020-03-21] MEDS: GLIMEPIRIDE 2MG TABLET PO SCH ×2 (05:45→16:56)
[2020-03-21] MEDS: BLOOD SUGAR DIAGNOSTIC STRIP TEST SCH ×4 (05:46→21:02)
[2020-03-21] MEDS: CALCIUM ACETATE 667MG CAPSULE PO SCH ×3 (06:33→16:56)
[2020-03-21] MEDS: INSULIN LISPRO 100 UNITS/ML SUBCUT SCH ×4 (06:48→21:00)
[2020-03-21 08:00] VITALS: BP 138/58
[2020-03-21] MEDS: PANTOPRAZOLE SODIUM 40 MG/VIAL IV SCH (09:00)
[2020-03-21] MEDS: FOLIC ACID/VITAMIN B COMP W-C TABLET PO SCH (09:00)
[2020-03-21] MEDS: DORZOLAMIDE 2% OPHTH 10 ML BOTTLE EACHEYE SCH ×2 (09:00→16:56)
[2020-03-21] MEDS: HYDRALAZINE HCL 25MG TABLET PO SCH (09:00)
[2020-03-21] MEDS: CALCITRIOL 0.25MCG CAPSULE PO SCH (09:00)
[2020-03-21] MEDS: AMLODIPINE 10MG TABLET PO SCH (09:00)
[2020-03-21 10:08] LABS: BASOPHILS % 1.1 % (0.0-2.0); EOSINOPHILS % 1.9 % (0.0-5.0); HEMATOCRIT. 28.1 % (36.0-48.0); HEMOGLOBIN. 9.4 g/dL (12.0-16.0); LYMPHOCYTES % 25.1 % (20.0-50.0); MEAN CORPUSCULAR HEMOGLOBIN 31.5 pg (28.0-32.0); MEAN CORPUSCULAR VOLUME 94.4 fL (81.0-99.0); MEAN PLATELET VOLUME 7.5 fl (7.4-10.4); MONOCYTES % 11.8 % (2.0-8.0); NEUTROPHILS % 60.1 % (40.0-76.0); PLATELET 211 x1000/uL (130-400); RED BLOOD CELL COUNT 2.98 mill/uL (4.2-5.4); RED CELL DISTRIBUTION WIDTH 16.7 % (11.6-14.6)
[2020-03-21 10:21] LABS: PHOSPHORUS 3.9 mg/dL (2.5-4.9)
[2020-03-21] MEDS ORDERED: PROPOFOL 200MG/20ML VIAL IV ONE (13:00)
[2020-03-21 14:08] LABS: FOLATE RBC 1152 ng/mL (>498)
[2020-03-21 16:00] VITALS: BP 133/48
[2020-03-21 16:51] LABS: T4 FREE 1.03 ng/dL (0.76-1.46)
[2020-03-21 20:00] VITALS: BP 148/46
[2020-03-21] MEDS: LATANOPROST 0.005% OPHTH DROPS 2.5ML EACHEYE SCH (21:05)
[2020-03-21] MEDS: ATORVASTATIN CALCIUM 20MG TABLET PO SCH (21:05)
[2020-03-21] MEDS: MIRTAZAPINE 15MG TABLET PO SCH (21:05)
[2020-03-22] VITALS (7 sets, daily range): BP systolic 133–181; BP diastolic 48–76
[2020-03-22] MEDS: BLOOD SUGAR DIAGNOSTIC STRIP TEST SCH ×4 (06:21→21:17)
[2020-03-22] MEDS: INSULIN LISPRO 100 UNITS/ML SUBCUT SCH ×4 (06:22→21:19)
[2020-03-22] MEDS: AMLODIPINE 10MG TABLET PO SCH (08:02)
[2020-03-22] MEDS: CALCITRIOL 0.25MCG CAPSULE PO SCH (08:02)
[2020-03-22] MEDS: FOLIC ACID/VITAMIN B COMP W-C TABLET PO SCH (08:02)
[2020-03-22] MEDS: CALCIUM ACETATE 667MG CAPSULE PO SCH ×3 (08:03→17:15)
[2020-03-22] MEDS: PANTOPRAZOLE SODIUM 40 MG/VIAL IV SCH (08:03)
[2020-03-22] MEDS: HYDRALAZINE HCL 25MG TABLET PO SCH (08:03)
[2020-03-22] MEDS: DORZOLAMIDE 2% OPHTH 10 ML BOTTLE EACHEYE SCH ×2 (08:04→18:37)
[2020-03-22] MEDS: ATORVASTATIN CALCIUM 20MG TABLET PO SCH (21:18)
[2020-03-22] MEDS: MIRTAZAPINE 15MG TABLET PO SCH (21:18)
[2020-03-22] MEDS: LATANOPROST 0.005% OPHTH DROPS 2.5ML EACHEYE SCH (21:20)
[2020-03-23] VITALS: BP 117/63
[2020-03-23 04:00] VITALS: BP 153/64
[2020-03-23] MEDS: BLOOD SUGAR DIAGNOSTIC STRIP TEST SCH (06:08)
[2020-03-23] MEDS: INSULIN LISPRO 100 UNITS/ML SUBCUT SCH (06:52)
[2020-03-23 08:00] VITALS: BP 135/62
[2020-03-23] MEDS: PANTOPRAZOLE SODIUM 40 MG/VIAL IV SCH (09:00)
[2020-03-23] MEDS: FOLIC ACID/VITAMIN B COMP W-C TABLET PO SCH (09:22)
[2020-03-23] MEDS: DORZOLAMIDE 2% OPHTH 10 ML BOTTLE EACHEYE SCH (09:22)
[2020-03-23] MEDS: HYDRALAZINE HCL 25MG TABLET PO SCH (09:22)
[2020-03-23] MEDS: AMLODIPINE 10MG TABLET PO SCH (09:22)
[2020-03-23] MEDS: CALCITRIOL 0.25MCG CAPSULE PO SCH (09:22)
[2020-03-23] MEDS: CALCIUM ACETATE 667MG CAPSULE PO SCH (09:24)
[2020-03-23 10:08] VITALS: BP 135/62
== END 2020-03-23 11:54 | disposition home or self-care (01) | DRG 377 ==
LOC: ER 09:41 → EDBEDREQ 11:25 → EDBEDREQTM 11:25 → MICUSO 13:30 → EDBEDREQ 13:45 → EDBEDREQTM 13:45 → 5WST 03-20 01:22
PROVIDERS: ADMIT Hospitalist; ATTEND Hospitalist
PROC: 5A1D70Z Performance of Urinary Filtration, Intermittent, Less than 6 Hours Per Day (ICD-10-PCS; 2020-03-20)
PROC: 0DB68ZX Excision of Stomach, Via Natural or Artificial Opening Endoscopic, Diagnostic (ICD-10-PCS; principal; 2020-03-21)
PROC: 5A1D70Z Performance of Urinary Filtration, Intermittent, Less than 6 Hours Per Day (ICD-10-PCS; 2020-03-22)
DX: K29.71 Gastritis, unspecified, with bleeding (principal); N18.6 End stage renal disease; D62 Acute posthemorrhagic anemia; I13.2 Hypertensive heart and chronic kidney disease with heart failure and with stage 5 chronic kidney disease, or end stage renal disease; I43 Cardiomyopathy in diseases classified elsewhere; I50.32 Chronic diastolic (congestive) heart failure; N25.81 Secondary hyperparathyroidism of renal origin; K22.2 Esophageal obstruction; Z99.2 Dependence on renal dialysis; E11.22 Type 2 diabetes mellitus with diabetic chronic kidney disease; N28.89 Other specified disorders of kidney and ureter; D63.8 Anemia in other chronic diseases classified elsewhere; E11.42 Type 2 diabetes mellitus with diabetic polyneuropathy; F32.9 Major depressive disorder, single episode, unspecified; Z20.828 Contact with and (suspected) exposure to other viral communicable diseases; D50.9 Iron deficiency anemia, unspecified; E04.1 Nontoxic single thyroid nodule; E11.649 Type 2 diabetes mellitus with hypoglycemia without coma; E78.00 Pure hypercholesterolemia, unspecified; E78.5 Hyperlipidemia, unspecified; J39.8 Other specified diseases of upper respiratory tract; K44.9 Diaphragmatic hernia without obstruction or gangrene; M19.90 Unspecified osteoarthritis, unspecified site; M47.817 Spondylosis without myelopathy or radiculopathy, lumbosacral region; M48.061 Spinal stenosis, lumbar region without neurogenic claudication; Z96.653 Presence of artificial knee joint, bilateral; G89.29 Other chronic pain; T38.3X5A Adverse effect of insulin and oral hypoglycemic [antidiabetic] drugs, initial encounter; M54.10 Radiculopathy, site unspecified; M54.5 Low back pain; Z83.3 Family history of diabetes mellitus; Z82.49 Family history of ischemic heart disease and other diseases of the circulatory system; Z88.5 Allergy status to narcotic agent; Z88.8 Allergy status to other drugs, medicaments and biological substances; Z79.899 Other long term (current) drug therapy; Z79.82 Long term (current) use of aspirin; Y92.89 Other specified places as the place of occurrence of the external cause
CPT/HCPCS: 36415; 71045; 76536; 76700; 80048; 80053; 82533; 82607; 82728; 82746; 82747; 82962; 83036; 83540; 83550; 83735; 83880; 84100; 84439; 84443; 84481; 84484; 85014; 85025; 86376; 86850; 86900; 87635; 88305; 88313; 93005; 93970; 99285; C9113; J1815; J2704; J7030; C9803-CS

== ENCOUNTER 2021-02-21 08:18 | Inpatient (IN) | payer MEDICARE, BC ==
[~2021-02-21] VITALS: Ht 160 cm; Wt 79.6 kg
[~2021-02-21 08:18] MED LIST changes: +GABA-532 MT
[2021-02-21 09:16] LABS: BASOPHILS % 2.1 % (0.0-2.0); EOSINOPHILS % 3.4 % (0.0-5.0); HEMOGLOBIN. 10.5 g/dL (12.0-16.0); LYMPHOCYTES % 23.8 % (20.0-50.0); MEAN CORPUSCULAR HEMOGLOBIN 31.9 pg (28.0-32.0); MEAN CORPUSCULAR VOLUME 100.5 fL (81.0-99.0); MEAN PLATELET VOLUME 7.2 fl (7.4-10.4); MONOCYTES % 9.1 % (2.0-8.0); NEUTROPHILS % 61.6 % (40.0-76.0); PLATELET 225 x1000/uL (130-400); RED BLOOD CELL COUNT 3.29 mill/uL (4.2-5.4); RED CELL DISTRIBUTION WIDTH 16.5 % (11.6-14.6)
[2021-02-21 09:25] LABS: CHLORIDE 106 mEq/L (98-107)
[2021-02-21] MEDS ORDERED: ACETAMINOPHEN 325MG TABLET PO PRN ×2 (14:30)
[2021-02-21] MEDS ORDERED: GUAIFENESIN 200MG/10ML SUGAR FREE UDC PO PRN (14:30)
[2021-02-21] MEDS ORDERED: IPRATROPIUM/ALBUTEROL 0.5-3(2.5)MG/3ML NEB NEB PRN (14:30)
[2021-02-21] MEDS ORDERED: TRAMADOL 50MG TABLET PO PRN (14:30)
[2021-02-21] MEDS ORDERED: DOCUSATE SODIUM 100MG CAPSULE PO PRN (14:30)
[2021-02-21] MEDS ORDERED: NITROGLYCERIN 0.4MG TABLET SL SL PRN (14:30)
[2021-02-21] MEDS ORDERED: ONDANSETRON HCL 4MG/2ML INJ IV PRN (14:30)
[2021-02-21] MEDS ORDERED: MAGNESIUM/ALUMINUM HYDROXIDE/SIMETHICONE 30ML UDC PO PRN (14:30)
[2021-02-21] MEDS ORDERED: NALOXONE HCL 0.4MG/ML VIAL IV PRN (14:45)
[2021-02-21 15:00] VITALS: BP 195/64
[2021-02-21 16:00] VITALS: BP 177/70
[2021-02-21] MEDS ORDERED: SEVELAMER CARBONATE 800 MG TABLET PO SCH (17:00)
[2021-02-21] MEDS ORDERED: DEXTROSE 50% WATER 50ML SYRINGE IV PRN (17:00)
[2021-02-21] MEDS: INSULIN LISPRO 100 UNITS/ML SUBCUT SCH ×2 (17:50→21:00)
[2021-02-21] MEDS: ENOXAPARIN 30MG/0.3ML SYR SUBCUT SCH (18:08)
[2021-02-21] MEDS: BLOOD SUGAR DIAGNOSTIC STRIP TEST SCH ×2 (18:09→21:45)
[2021-02-21 20:00] VITALS: BP 143/59
[2021-02-21] MEDS ORDERED: ZOLPIDEM TARTRATE 5MG TABLET PO PRN (21:00)
[2021-02-21] MEDS ORDERED: ENOXAPARIN 40MG/0.4ML SYR SUBCUT SCH (21:00)
[2021-02-21] MEDS: FAMOTIDINE 20MG TABLET PO SCH (21:44)
[2021-02-21] MEDS: METOPROLOL TARTRATE 25MG TABLET PO SCH (21:45)
[2021-02-21] MEDS: ASCORBIC ACID 500 MG TABLET PO SCH (21:45)
[2021-02-21] MEDS: HYDRALAZINE HCL 50MG TABLET PO SCH (21:45)
[2021-02-21] MEDS: ATORVASTATIN CALCIUM 20MG TABLET PO SCH (21:45)
[2021-02-22] VITALS: BP 143/63
[2021-02-22 04:00] VITALS: BP 139/68
[2021-02-22] MEDS: BLOOD SUGAR DIAGNOSTIC STRIP TEST SCH ×4 (06:25→21:00)
[2021-02-22] MEDS: INSULIN LISPRO 100 UNITS/ML SUBCUT SCH ×4 (06:25→21:00)
[2021-02-22 08:00] VITALS: BP 126/75
[2021-02-22] MEDS: CHOLECALCIFEROL (D3) 1000 UNIT TABLET PO SCH (08:37)
[2021-02-22] MEDS: ASPIRIN 325MG EC TABLET PO SCH (08:37)
[2021-02-22] MEDS: SEVELAMER CARBONATE 800 MG TABLET PO SCH ×3 (08:37→17:50)
[2021-02-22] MEDS: ZINC SULFATE 220 MG ( 50 ) CAPSULE PO SCH (08:37)
[2021-02-22] MEDS: ASCORBIC ACID 500 MG TABLET PO SCH ×2 (08:38→21:00)
[2021-02-22] MEDS: FOLIC ACID/VITAMIN B COMP W-C TABLET PO SCH (08:38)
[2021-02-22] MEDS: METOPROLOL TARTRATE 25MG TABLET PO SCH ×2 (09:00→21:00)
[2021-02-22] MEDS: HYDRALAZINE HCL 50MG TABLET PO SCH ×2 (09:00→21:00)
[2021-02-22 12:00] VITALS: BP 150/69
[2021-02-22 12:43] LABS: BASOPHILS % 1.4 % (0.0-2.0); CHLORIDE 109 mEq/L (98-107); EOSINOPHILS % 5.6 % (0.0-5.0); HEMATOCRIT. 31.7 % (36.0-48.0); HEMOGLOBIN. 10.7 g/dL (12.0-16.0); LYMPHOCYTES % 39.1 % (20.0-50.0); MEAN PLATELET VOLUME 7.8 fl (7.4-10.4); MONOCYTES % 10.3 % (2.0-8.0); NEUTROPHILS % 43.6 % (40.0-76.0); PLATELET 226 x1000/uL (130-400); RED BLOOD CELL COUNT 3.24 mill/uL (4.2-5.4)
[2021-02-22 12:50] LABS: PHOSPHORUS 3.7 mg/dL (2.5-4.9)
[2021-02-22 12:52] LABS: CREATINE KINASE 215 IU/L (26-192)
[2021-02-22 12:55] LABS: CREATINE KINASE MB FRACTION 2.1 ng/mL (0.5-3.6)
[2021-02-22 13:49] LABS: HEPATITIS B SURFACE ANTIGEN NEGATIVE
[2021-02-22 14:19] LABS: HEPATITIS A AB IGM NEGATIVE (NEGATIVE)
[2021-02-22] MEDS: ENOXAPARIN 30MG/0.3ML SYR SUBCUT SCH (14:44)
[2021-02-22 16:10] LABS: CREATINE KINASE 220 IU/L (26-192)
[2021-02-22 16:11] LABS: CREATINE KINASE MB FRACTION 1.8 ng/mL (0.5-3.6)
[2021-02-22 17:22] LABS: VITAMIN B12 SERUM 830 pg/mL (211-911)
[2021-02-22 19:30] VITALS: BP 95/63
[2021-02-22] MEDS: ATORVASTATIN CALCIUM 20MG TABLET PO SCH (21:00)
[2021-02-22] MEDS: FAMOTIDINE 20MG TABLET PO SCH (21:00)
[2021-02-23 04:00] VITALS: BP 146/62
[2021-02-23] MEDS: BLOOD SUGAR DIAGNOSTIC STRIP TEST SCH ×4 (06:21→20:53)
[2021-02-23] MEDS: INSULIN LISPRO 100 UNITS/ML SUBCUT SCH ×4 (07:36→20:53)
[2021-02-23 08:00] VITALS: BP 159/93
[2021-02-23] MEDS: SEVELAMER CARBONATE 800 MG TABLET PO SCH ×3 (09:26→18:24)
[2021-02-23] MEDS: HYDRALAZINE HCL 50MG TABLET PO SCH ×2 (09:26→20:52)
[2021-02-23] MEDS: FOLIC ACID/VITAMIN B COMP W-C TABLET PO SCH (09:26)
[2021-02-23] MEDS: ZINC SULFATE 220 MG ( 50 ) CAPSULE PO SCH (09:26)
[2021-02-23] MEDS: CHOLECALCIFEROL (D3) 1000 UNIT TABLET PO SCH (09:26)
[2021-02-23] MEDS: ASCORBIC ACID 500 MG TABLET PO SCH ×2 (09:26→20:53)
[2021-02-23] MEDS: ASPIRIN 325MG EC TABLET PO SCH (09:26)
[2021-02-23] MEDS: METOPROLOL TARTRATE 25MG TABLET PO SCH ×2 (09:27→20:53)
[2021-02-23 12:00] VITALS: BP 161/68
[2021-02-23] MEDS: ENOXAPARIN 30MG/0.3ML SYR SUBCUT SCH (15:40)
[2021-02-23 16:00] VITALS: BP 158/62
[2021-02-23 20:00] VITALS: BP 151/52
[2021-02-23] MEDS: ATORVASTATIN CALCIUM 20MG TABLET PO SCH (20:52)
[2021-02-23] MEDS: FAMOTIDINE 20MG TABLET PO SCH (20:53)
[2021-02-24] VITALS: BP 93/69
[2021-02-24 04:00] VITALS: BP 115/45
[2021-02-24] MEDS: BLOOD SUGAR DIAGNOSTIC STRIP TEST SCH ×4 (06:50→20:36)
[2021-02-24] MEDS: INSULIN LISPRO 100 UNITS/ML SUBCUT SCH ×4 (06:50→20:41)
[2021-02-24 06:59] LABS: BASOPHILS % 0.3 % (0.0-2.0); EOSINOPHILS % 7.7 % (0.0-5.0); HEMATOCRIT. 35.4 % (36.0-48.0); HEMOGLOBIN. 11.2 g/dL (12.0-16.0); LYMPHOCYTES % 39.7 % (20.0-50.0); MEAN CORPUSCULAR HEMOGLOBIN 31.8 pg (28.0-32.0); MEAN PLATELET VOLUME 8.9 fl (7.4-10.4); MONOCYTES % 12.6 % (2.0-8.0); NEUTROPHILS % 39.7 % (40.0-76.0); PLATELET 224 x1000/uL (130-400); RED BLOOD CELL COUNT 3.51 mill/uL (4.2-5.4); RED CELL DISTRIBUTION WIDTH 16.5 % (11.6-14.6)
[2021-02-24 07:45] VITALS: BP 174/61
[2021-02-24] MEDS: ASCORBIC ACID 500 MG TABLET PO SCH (08:56)
[2021-02-24] MEDS: ZINC SULFATE 220 MG ( 50 ) CAPSULE PO SCH (08:56)
[2021-02-24] MEDS: CHOLECALCIFEROL (D3) 1000 UNIT TABLET PO SCH (08:56)
[2021-02-24] MEDS: SEVELAMER CARBONATE 800 MG TABLET PO SCH ×3 (08:56→18:27)
[2021-02-24] MEDS: FOLIC ACID/VITAMIN B COMP W-C TABLET PO SCH (08:56)
[2021-02-24] MEDS: HYDRALAZINE HCL 50MG TABLET PO SCH ×2 (09:00→20:43)
[2021-02-24] MEDS: METOPROLOL TARTRATE 25MG TABLET PO SCH ×2 (09:00→20:43)
[2021-02-24] MEDS: DEXAMETHASONE 4MG/ML 1ML VIAL IV SCH ×3 (11:56→23:48)
[2021-02-24 12:00] VITALS: BP 143/77
[2021-02-24] MEDS ORDERED: HEPARIN SODIUM 1,000 UNIT/1ML VIAL IV NR (20:30)
[2021-02-24 20:32] VITALS: BP 163/77
[2021-02-24] MEDS: ATORVASTATIN CALCIUM 20MG TABLET PO SCH ×2 (20:45→20:48)
[2021-02-24] MEDS: FAMOTIDINE 20MG TABLET PO SCH ×2 (20:45→20:48)
[2021-02-24] MEDS: DIPHENHYDRAMINE 50MG/ML VIAL IV PRN (23:48)
[2021-02-25] VITALS: BP 162/75
[2021-02-25 04:00] VITALS: BP 183/80
[2021-02-25] MEDS: DEXAMETHASONE 4MG/ML 1ML VIAL IV SCH ×4 (06:43→23:39)
[2021-02-25] MEDS: BLOOD SUGAR DIAGNOSTIC STRIP TEST SCH ×4 (06:43→21:07)
[2021-02-25 08:00] VITALS: BP 160/67
[2021-02-25] MEDS: SEVELAMER CARBONATE 800 MG TABLET PO SCH ×3 (08:44→18:10)
[2021-02-25] MEDS: INSULIN LISPRO 100 UNITS/ML SUBCUT SCH ×4 (08:44→21:00)
[2021-02-25] MEDS: HYDRALAZINE HCL 50MG TABLET PO SCH ×3 (08:56→21:18)
[2021-02-25] MEDS: METOPROLOL TARTRATE 25MG TABLET PO SCH ×2 (08:56→21:00)
[2021-02-25 10:31] LABS: T4 FREE 0.8 ng/dL (0.76-1.46)
[2021-02-25 12:16] VITALS: BP 159/60
[2021-02-25 16:15] VITALS: BP_SYST 150; BP_SYST 180; BP_DIAS 62
[2021-02-25 18:08] LABS: CREATINE KINASE 108 IU/L (26-192)
[2021-02-25 18:09] LABS: CREATINE KINASE MB FRACTION 1.7 ng/mL (0.5-3.6)
[2021-02-25 20:00] VITALS: BP 149/56
[2021-02-25] MEDS: ATORVASTATIN CALCIUM 20MG TABLET PO SCH (21:00)
[2021-02-25] MEDS: FAMOTIDINE 20MG TABLET PO SCH (21:00)
[2021-02-26] VITALS (17 sets, daily range): BP systolic 47–177; BP diastolic 34–76
[2021-02-26] MEDS: DEXAMETHASONE 4MG/ML 1ML VIAL IV SCH ×5 (06:00→18:00)
[2021-02-26] MEDS: HYDRALAZINE HCL 50MG TABLET PO SCH ×3 (06:00→21:16)
[2021-02-26] MEDS ORDERED: BACITRACIN 50,000 UNITS/VIAL ONE (06:11)
[2021-02-26] MEDS ORDERED: LIDOCAINE HCL/EPINEPHRINE 1%-EPI 1:100,000 20 ML VIAL ONE (06:11)
[2021-02-26] MEDS ORDERED: THROMBIN (BOVINE) 5000 UNITS/VIAL TOP ONE (06:11)
[2021-02-26 06:32] LABS: BASOPHILS % 0.1 % (0.0-2.0); HEMATOCRIT. 36.2 % (36.0-48.0); HEMOGLOBIN. 11.7 g/dL (12.0-16.0); LYMPHOCYTES % 15.6 % (20.0-50.0); MEAN CORPUSCULAR HEMOGLOBIN 31.9 pg (28.0-32.0); MEAN CORPUSCULAR VOLUME 98.8 fL (81.0-99.0); MEAN PLATELET VOLUME 8.4 fl (7.4-10.4); MONOCYTES % 4.2 % (2.0-8.0); NEUTROPHILS % 80.1 % (40.0-76.0); PLATELET 231 x1000/uL (130-400); RED BLOOD CELL COUNT 3.67 mill/uL (4.2-5.4); RED CELL DISTRIBUTION WIDTH 16.3 % (11.6-14.6)
[2021-02-26 06:37] LABS: CHLORIDE 104 mEq/L (98-107)
[2021-02-26 06:43] LABS: PHOSPHORUS 3.5 mg/dL (2.5-4.9)
[2021-02-26 06:46] LABS: CREATINE KINASE 84 IU/L (26-192)
[2021-02-26 06:48] LABS: CREATINE KINASE MB FRACTION 1.8 ng/mL (0.5-3.6)
[2021-02-26] MEDS: BLOOD SUGAR DIAGNOSTIC STRIP TEST SCH ×4 (07:35→21:20)
[2021-02-26] MEDS: INSULIN LISPRO 100 UNITS/ML SUBCUT SCH ×3 (07:35→21:00)
[2021-02-26] MEDS: SEVELAMER CARBONATE 800 MG TABLET PO SCH ×3 (07:50→17:50)
[2021-02-26] MEDS: METOPROLOL TARTRATE 25MG TABLET PO SCH ×2 (09:23→20:40)
[2021-02-26] MEDS ORDERED: SODIUM POLYSTYRENE SULFONATE 15 G/60 ML BOT PO SCH (11:00)
[2021-02-26] MEDS ORDERED: MORPHINE SULFATE 4 MG/ML CPJ (NOT FOR IM USE) IV PRN (11:15)
[2021-02-26] MEDS ORDERED: NICARDIPINE 100 MG in SODIUM CHLORIDE 0.9% 60 ML IV PRN (11:15)
[2021-02-26] MEDS ORDERED: DEXT 5%/0.9% NACL 1,000 ML IV ONE (11:15)
[2021-02-26] MEDS ORDERED: LIDOCAINE HCL/EPINEPHRINE 1%-EPI 1:100,000 10 ML VIAL ONE (11:30)
[2021-02-26] MEDS ORDERED: ACETAMINOPHEN 500MG TABLET ONE (11:32)
[2021-02-26] MEDS ORDERED: ETOMIDATE 2MG/ML 10ML VIAL IV ONE (11:46)
[2021-02-26] MEDS ORDERED: PHENYLEPHRINE HCL 10 MG/ML 1ML (IV VIAL) IV ONE (11:49)
[2021-02-26] MEDS ORDERED: PROPOFOL 10MG/ML 100ML 100 ML IV ONE (12:35)
[2021-02-26] MEDS ORDERED: FENTANYL CITRATE/PF 50MCG/ML 2ML VIAL ONE (13:00)
[2021-02-26] MEDS ORDERED: DEXAMETHASONE 4MG/ML 1ML VIAL ONE (14:08)
[2021-02-26] MEDS ORDERED: NEOSTIGMINE METHYLSULFATE 1MG/ML 10 ML VIAL ONE (14:08)
[2021-02-26] MEDS ORDERED: GLYCOPYRROLATE 0.2 MG/ML 2ML VIAL ONE (14:08)
[2021-02-26] MEDS ORDERED: LABETALOL HCL 5MG/ML VIAL 20ML IV ONE (14:32)
[2021-02-26] MEDS ORDERED: ALBUMIN HUMAN 25GM/100ML (25%) IV ONE (15:16)
[2021-02-26 17:30] LABS: CREATINE KINASE 225 IU/L (26-192)
[2021-02-26 17:31] LABS: CREATINE KINASE MB FRACTION 7.7 ng/mL (0.5-3.6)
[2021-02-26] MEDS: HYDROMORPHONE HCL/PF 2MG/ML CPJ IV PRN (17:52)
[2021-02-26] MEDS: ATORVASTATIN CALCIUM 20MG TABLET PO SCH (20:40)
[2021-02-26] MEDS: FAMOTIDINE 20MG TABLET PO SCH (20:41)
[2021-02-26] MEDS: DEXT 5%/0.9% NACL 1,000 ML IV SCH (20:50)
[2021-02-26] MEDS: NICARDIPINE 100 MG in SODIUM CHLORIDE 0.9% 60 ML IV PRN (21:25)
[2021-02-27] VITALS (69 sets, daily range): BP systolic 18–296; BP diastolic 16–256
[2021-02-27] MEDS: HYDROMORPHONE HCL/PF 2MG/ML CPJ IV PRN ×4 (04:06→23:32)
[2021-02-27] MEDS: HYDRALAZINE HCL 50MG TABLET PO SCH ×3 (05:03→21:53)
[2021-02-27] MEDS: DEXAMETHASONE 4MG/ML 1ML VIAL IV SCH ×3 (05:36→12:42)
[2021-02-27] MEDS: DEXT 5%/0.9% NACL 1,000 ML IV SCH ×2 (05:36→16:41)
[2021-02-27 07:26] LABS: MEAN CORPUSCULAR VOLUME 98.1 fL (81.0-99.0); MEAN PLATELET VOLUME 8.2 fl (7.4-10.4); PLATELET 214 x1000/uL (130-400); RED BLOOD CELL COUNT 2.89 mill/uL (4.2-5.4); RED CELL DISTRIBUTION WIDTH 15.9 % (11.6-14.6)
[2021-02-27] MEDS: SEVELAMER CARBONATE 800 MG TABLET PO SCH ×3 (08:00→18:07)
[2021-02-27 08:01] LABS: HEMATOCRIT. 28.4 % (36.0-48.0); HEMOGLOBIN. 9.3 g/dL (12.0-16.0)
[2021-02-27] MEDS: BLOOD SUGAR DIAGNOSTIC STRIP TEST SCH ×4 (08:17→21:04)
[2021-02-27] MEDS: METOPROLOL TARTRATE 25MG TABLET PO SCH ×3 (08:22→21:11)
[2021-02-27] MEDS: INSULIN LISPRO 100 UNITS/ML SUBCUT SCH ×4 (08:24→21:13)
[2021-02-27 16:38] LABS: PLATELET ESTIMATE NORMAL
[2021-02-27] MEDS: NICARDIPINE 100 MG in SODIUM CHLORIDE 0.9% 60 ML IV PRN (16:41)
[2021-02-27] MEDS: ATORVASTATIN CALCIUM 20MG TABLET PO SCH (20:54)
[2021-02-27] MEDS: FAMOTIDINE 20MG TABLET PO SCH (20:54)
[2021-02-28] VITALS (54 sets, daily range): BP systolic 95–173; BP diastolic 37–100
[2021-02-28] MEDS: DEXT 5%/0.9% NACL 1,000 ML IV SCH ×3 (01:38→21:22)
[2021-02-28] MEDS: HYDROMORPHONE HCL/PF 2MG/ML CPJ IV PRN ×2 (04:29→11:23)
[2021-02-28] MEDS: NICARDIPINE 100 MG in SODIUM CHLORIDE 0.9% 60 ML IV PRN (04:30)
[2021-02-28] MEDS: HYDRALAZINE HCL 50MG TABLET PO SCH ×3 (05:32→21:11)
[2021-02-28 06:09] LABS: PHOSPHORUS 4.1 mg/dL (2.5-4.9)
[2021-02-28 06:30] LABS: BASOPHILS % 0.1 % (0.0-2.0); HEMATOCRIT. 26.7 % (36.0-48.0); HEMOGLOBIN. 8.9 g/dL (12.0-16.0); LYMPHOCYTES % 11.3 % (20.0-50.0); MEAN CORPUSCULAR HEMOGLOBIN 32.6 pg (28.0-32.0); MEAN PLATELET VOLUME 8.2 fl (7.4-10.4); MONOCYTES % 9.6 % (2.0-8.0); PLATELET 198 x1000/uL (130-400); RED BLOOD CELL COUNT 2.72 mill/uL (4.2-5.4); RED CELL DISTRIBUTION WIDTH 15.9 % (11.6-14.6)
[2021-02-28] MEDS: BLOOD SUGAR DIAGNOSTIC STRIP TEST SCH ×4 (07:30→21:14)
[2021-02-28] MEDS: SEVELAMER CARBONATE 800 MG TABLET PO SCH ×3 (08:34→17:10)
[2021-02-28] MEDS: DIPHENHYDRAMINE 50MG/ML VIAL IV PRN (08:35)
[2021-02-28] MEDS: INSULIN LISPRO 100 UNITS/ML SUBCUT SCH ×4 (08:35→21:14)
[2021-02-28] MEDS: FOLIC ACID/VITAMIN B COMP W-C TABLET PO SCH (08:35)
[2021-02-28] MEDS: METOPROLOL TARTRATE 25MG TABLET PO SCH (08:37)
[2021-02-28] MEDS: NITROGLYCERIN OINT 1GM/INCH UDPKT TD SCH ×2 (13:23→21:12)
[2021-02-28] MEDS ORDERED: NALOXONE HCL 0.4MG/ML VIAL IV PRN (17:45)
[2021-02-28] MEDS: FAMOTIDINE 20MG TABLET PO SCH (21:10)
[2021-02-28] MEDS: ATORVASTATIN CALCIUM 20MG TABLET PO SCH (21:21)
[2021-03-01] VITALS (22 sets, daily range): BP systolic 121–168; BP diastolic 27–79
[2021-03-01] MEDS: HYDROMORPHONE HCL/PF 2MG/ML CPJ IV PRN ×7 (02:33→21:36)
[2021-03-01] MEDS: HYDRALAZINE HCL 50MG TABLET PO SCH ×3 (05:25→21:33)
[2021-03-01] MEDS: NITROGLYCERIN OINT 1GM/INCH UDPKT TD SCH ×3 (05:27→21:34)
[2021-03-01] MEDS: DEXT 5%/0.9% NACL 1,000 ML IV SCH ×2 (05:28→21:56)
[2021-03-01] MEDS: BLOOD SUGAR DIAGNOSTIC STRIP TEST SCH ×4 (06:50→21:56)
[2021-03-01] MEDS: INSULIN LISPRO 100 UNITS/ML SUBCUT SCH ×4 (06:50→21:56)
[2021-03-01] MEDS: FOLIC ACID/VITAMIN B COMP W-C TABLET PO SCH (09:00)
[2021-03-01] MEDS: SEVELAMER CARBONATE 800 MG TABLET PO SCH ×3 (09:10→17:46)
[2021-03-01] MEDS ORDERED: HYDROCODONE/ACETAMINOPHEN 10/325MG TABLET PO PRN (16:45)
[2021-03-01] MEDS ORDERED: HYDROCODONE/ACETAMINOPHEN 5/325MG TABLET PO PRN (16:45)
[2021-03-01] MEDS ORDERED: TRAMADOL 50MG TABLET PO PRN (17:45)
[2021-03-01] MEDS: ATORVASTATIN CALCIUM 20MG TABLET PO SCH (21:33)
[2021-03-01] MEDS: FAMOTIDINE 20MG TABLET PO SCH (21:33)
[2021-03-02] VITALS (8 sets, daily range): BP systolic 131–165; BP diastolic 63–116
[2021-03-02] MEDS: HYDROMORPHONE HCL/PF 2MG/ML CPJ IV PRN ×5 (02:06→20:57)
[2021-03-02] MEDS: DEXT 5%/0.9% NACL 1,000 ML IV SCH ×2 (02:06→14:41)
[2021-03-02 05:41] LABS: BASOPHILS % 0.2 % (0.0-2.0); EOSINOPHILS % 1.6 % (0.0-5.0); HEMATOCRIT. 27.3 % (36.0-48.0); HEMOGLOBIN. 8.6 g/dL (12.0-16.0); LYMPHOCYTES % 18.5 % (20.0-50.0); MEAN CORPUSCULAR HEMOGLOBIN 31.6 pg (28.0-32.0); MEAN CORPUSCULAR VOLUME 100.5 fL (81.0-99.0); MEAN PLATELET VOLUME 8.4 fl (7.4-10.4); MONOCYTES % 12.8 % (2.0-8.0); NEUTROPHILS % 66.9 % (40.0-76.0); PLATELET 174 x1000/uL (130-400); RED BLOOD CELL COUNT 2.72 mill/uL (4.2-5.4)
[2021-03-02] MEDS: HYDRALAZINE HCL 50MG TABLET PO SCH (05:42)
[2021-03-02] MEDS: NITROGLYCERIN OINT 1GM/INCH UDPKT TD SCH ×2 (05:42→14:40)
[2021-03-02] MEDS: SEVELAMER CARBONATE 800 MG TABLET PO SCH ×3 (08:12→18:04)
[2021-03-02] MEDS: BLOOD SUGAR DIAGNOSTIC STRIP TEST SCH ×4 (08:13→20:38)
[2021-03-02] MEDS: FOLIC ACID/VITAMIN B COMP W-C TABLET PO SCH (08:13)
[2021-03-02] MEDS: HYDRALAZINE HCL 50MG TABLET PO PRN ×2 (08:13→20:56)
[2021-03-02] MEDS: INSULIN LISPRO 100 UNITS/ML SUBCUT SCH ×3 (09:04→20:55)
[2021-03-02] MEDS ORDERED: HYDRALAZINE HCL 25MG TABLET PO SCH (14:00)
[2021-03-02] MEDS: ATORVASTATIN CALCIUM 20MG TABLET PO SCH (20:46)
[2021-03-02] MEDS: FAMOTIDINE 20MG TABLET PO SCH (20:47)
== END 2021-03-02 21:57 | DRG 471 ==
LOC: ER 08:21 → 6WST 12:08 → EDBEDREQ 12:13 → EDBEDREQTM 12:13 → ENRESERV 13:25 → SUPCPDRO 14:21 → EDBEDREQ 14:42 → 6WST 02-25 01:30 → MICUNO 02-26 18:35 → 5EST 02-26 20:20
PROVIDERS: ADMIT Internal Medicine; ATTEND Internal Medicine
PROC: 5A1D70Z Performance of Urinary Filtration, Intermittent, Less than 6 Hours Per Day (ICD-10-PCS; 2021-02-21)
PROC: 5A1D70Z Performance of Urinary Filtration, Intermittent, Less than 6 Hours Per Day (ICD-10-PCS; 2021-02-24)
PROC: 0RG2071 Fusion of 2 or more Cervical Vertebral Joints with Autologous Tissue Substitute, Posterior Approach, Posterior Column, Open Approach (ICD-10-PCS; principal; 2021-02-26)
PROC: 00NW0ZZ Release Cervical Spinal Cord, Open Approach (ICD-10-PCS; 2021-02-26)
PROC: 01N10ZZ Release Cervical Nerve, Open Approach (ICD-10-PCS; 2021-02-26)
PROC: 4A11X4G Monitoring of Peripheral Nervous Electrical Activity, Intraoperative, External Approach (ICD-10-PCS; 2021-02-26)
PROC: 5A1D70Z Performance of Urinary Filtration, Intermittent, Less than 6 Hours Per Day (ICD-10-PCS; 2021-02-26)
PROC: 5A1D70Z Performance of Urinary Filtration, Intermittent, Less than 6 Hours Per Day (ICD-10-PCS; 2021-02-28)
PROC: 5A1D70Z Performance of Urinary Filtration, Intermittent, Less than 6 Hours Per Day (ICD-10-PCS; 2021-03-02)
DX: M48.02 Spinal stenosis, cervical region (principal); N18.6 End stage renal disease; G82.50 Quadriplegia, unspecified; I50.32 Chronic diastolic (congestive) heart failure; M47.12 Other spondylosis with myelopathy, cervical region; I13.2 Hypertensive heart and chronic kidney disease with heart failure and with stage 5 chronic kidney disease, or end stage renal disease; M47.16 Other spondylosis with myelopathy, lumbar region; Z99.2 Dependence on renal dialysis; E11.22 Type 2 diabetes mellitus with diabetic chronic kidney disease; G89.29 Other chronic pain; M54.5 Low back pain; Z96.653 Presence of artificial knee joint, bilateral; D63.1 Anemia in chronic kidney disease; F32.9 Major depressive disorder, single episode, unspecified; F41.9 Anxiety disorder, unspecified; I25.10 Atherosclerotic heart disease of native coronary artery without angina pectoris; M47.22 Other spondylosis with radiculopathy, cervical region; Z20.822 Contact with and (suspected) exposure to COVID-19; R26.9 Unspecified abnormalities of gait and mobility; M47.26 Other spondylosis with radiculopathy, lumbar region; M48.061 Spinal stenosis, lumbar region without neurogenic claudication; E78.00 Pure hypercholesterolemia, unspecified; I27.20 Pulmonary hypertension, unspecified; W18.39XA Other fall on same level, initial encounter; Y93.89 Activity, other specified; Y99.8 Other external cause status; Y92.009 Unspecified place in unspecified non-institutional (private) residence as the place of occurrence of the external cause; Z79.4 Long term (current) use of insulin; Z87.891 Personal history of nicotine dependence; Z88.1 Allergy status to other antibiotic agents; Z88.8 Allergy status to other drugs, medicaments and biological substances; Z79.82 Long term (current) use of aspirin; Z79.899 Other long term (current) drug therapy
CPT/HCPCS: 36415; 70551; 71045; 72040; 72141; 72148; 73502; 76000; 80048; 80053; 80061; 82140; 82550; 82553; 82607; 82962; 83036; 83735; 83880; 84100; 84132; 84439; 84443; 84484; 85025; 85379; 86705; 86709; 86803; 86850; 86900; 87340; 87426; 88304; 88311; 93005; 93306; 93880; 93970; 95925; 95926; 95928; 95929; 97110; 97162; 97530; 99291; C1713; C1893; J1100; J1170; J1200; J1644; J1650; J1815; J2370; J2704; J2710; J3010; J3490; J7042; J7050; L0172; P9047

== ENCOUNTER 2021-03-02 21:25 | Inpatient (IN) | payer MEDICARE, BC ==
[~2021-03-02] VITALS: Ht 160 cm; Wt 79.6 kg
[~2021-03-02 21:25] MED LIST changes: +HYDRALAZINE HCL 25MG TABLET PO SCH
[2021-03-02 21:30] VITALS: BP 180/70
[2021-03-02 21:45] VITALS: BP 180/70
[2021-03-02] MEDS ORDERED: IPRATROPIUM/ALBUTEROL 0.5-3(2.5)MG/3ML NEB HHN PRN (23:45)
[2021-03-02] MEDS ORDERED: DIPHENHYDRAMINE 50MG/ML VIAL IV PRN (23:45)
[2021-03-02] MEDS ORDERED: DOCUSATE SODIUM 100MG CAPSULE PO PRN (23:45)
[2021-03-02] MEDS ORDERED: ACETAMINOPHEN 325MG TABLET PO PRN ×2 (23:45)
[2021-03-02] MEDS ORDERED: MAGNESIUM/ALUMINUM HYDROXIDE/SIMETHICONE 30ML UDC PO PRN (23:45)
[2021-03-02] MEDS ORDERED: HYDRALAZINE HCL 50MG TABLET PO PRN (23:45)
[2021-03-02] MEDS ORDERED: DEXTROSE 50% WATER 50ML SYRINGE IV PRN (23:45)
[2021-03-02] MEDS ORDERED: NITROGLYCERIN 0.4MG TABLET SL SL PRN (23:45)
[2021-03-02] MEDS ORDERED: NALOXONE HCL 0.4 MG/ML 1ML VIAL IV PRN (23:45)
[2021-03-02] MEDS ORDERED: GUAIFENESIN 200MG/10ML SUGAR FREE UDC PO PRN (23:45)
[2021-03-02] MEDS ORDERED: ONDANSETRON HCL 4MG/2ML INJ IV PRN (23:45)
[2021-03-03] MEDS ORDERED: NALOXONE HCL 0.4MG/ML VIAL IV PRN (00:15)
[2021-03-03] MEDS: DEXT 5%/0.9% NACL 1,000 ML IV SCH ×3 (00:51→21:00)
[2021-03-03] MEDS ORDERED: *PATIENT'S OWN MEDICATION STORAGE XX SCH (05:30)
[2021-03-03] MEDS: BLOOD SUGAR DIAGNOSTIC STRIP TEST SCH ×4 (06:30→21:09)
[2021-03-03] MEDS: INSULIN LISPRO 100 UNITS/ML SUBCUT SCH ×4 (06:37→21:00)
[2021-03-03 07:01] LABS: BASOPHILS % 0.4 % (0.0-2.0); EOSINOPHILS % 1.4 % (0.0-5.0); HEMATOCRIT. 26.8 % (36.0-48.0); HEMOGLOBIN. 8.9 g/dL (12.0-16.0); MEAN CORPUSCULAR HEMOGLOBIN 32.3 pg (28.0-32.0); MEAN CORPUSCULAR VOLUME 96.9 fL (81.0-99.0); MEAN PLATELET VOLUME 8.3 fl (7.4-10.4); MONOCYTES % 11.9 % (2.0-8.0); NEUTROPHILS % 72.3 % (40.0-76.0); PLATELET 166 x1000/uL (130-400); RED BLOOD CELL COUNT 2.76 mill/uL (4.2-5.4); RED CELL DISTRIBUTION WIDTH 15.9 % (11.6-14.6)
[2021-03-03] MEDS: HYDROMORPHONE HCL/PF 2MG/ML CPJ IV PRN ×3 (08:44→21:01)
[2021-03-03] MEDS: SEVELAMER CARBONATE 800 MG TABLET PO SCH ×3 (08:45→16:51)
[2021-03-03] MEDS: FOLIC ACID/VITAMIN B COMP W-C TABLET PO SCH (08:46)
[2021-03-03] MEDS: NITROGLYCERIN OINT 1GM/INCH UDPKT TD SCH ×4 (08:58→23:48)
[2021-03-03] MEDS: AMLODIPINE 10MG TABLET PO SCH (11:21)
[2021-03-03] MEDS: TRAMADOL 50MG TABLET PO PRN ×2 (12:55→18:48)
[2021-03-03 14:20] VITALS: BP 116/52
[2021-03-03] MEDS ORDERED: BISACODYL 10MG SUPP PR PRN (15:45)
[2021-03-03] MEDS ORDERED: BISACODYL 5MG TABLET PO PRN (15:45)
[2021-03-03] MEDS ORDERED: HYDROCODONE/ACETAMINOPHEN 5/325MG TABLET PO PRN (15:45)
[2021-03-03] MEDS: HYDRALAZINE HCL 100MG TABLET PO SCH ×2 (16:50→23:48)
[2021-03-03] MEDS: BRIMONIDINE 0.2% OPHTH DROPS 5ML EACHEYE SCH (18:52)
[2021-03-03] MEDS: DORZOLAMIDE 2% OPHTH 10 ML BOTTLE EACHEYE SCH (18:53)
[2021-03-03 20:00] VITALS: BP 160/138
[2021-03-03] MEDS: FAMOTIDINE 20MG TABLET PO SCH (21:09)
[2021-03-03] MEDS: ATORVASTATIN CALCIUM 20MG TABLET PO SCH (21:09)
[2021-03-03] MEDS: LATANOPROST 0.005% OPHTH DROPS 2.5ML EACHEYE SCH (21:09)
[2021-03-03 23:56] VITALS: BP 147/90
[2021-03-04] MEDS: INSULIN LISPRO 100 UNITS/ML SUBCUT SCH ×4 (06:01→21:00)
[2021-03-04] MEDS: BLOOD SUGAR DIAGNOSTIC STRIP TEST SCH ×4 (06:01→21:00)
[2021-03-04] MEDS: DEXT 5%/0.9% NACL 1,000 ML IV SCH (06:18)
[2021-03-04 06:49] LABS: BASOPHILS % 0.8 % (0.0-2.0); EOSINOPHILS % 1.1 % (0.0-5.0); HEMATOCRIT. 27.8 % (36.0-48.0); HEMOGLOBIN. 9.1 g/dL (12.0-16.0); LYMPHOCYTES % 11.7 % (20.0-50.0); MEAN CORPUSCULAR HEMOGLOBIN 31.9 pg (28.0-32.0); MEAN CORPUSCULAR VOLUME 97.6 fL (81.0-99.0); MEAN PLATELET VOLUME 8.2 fl (7.4-10.4); MONOCYTES % 11.8 % (2.0-8.0); NEUTROPHILS % 74.6 % (40.0-76.0); PLATELET 198 x1000/uL (130-400); RED BLOOD CELL COUNT 2.85 mill/uL (4.2-5.4); RED CELL DISTRIBUTION WIDTH 15.7 % (11.6-14.6)
[2021-03-04 08:00] VITALS: BP 180/62
[2021-03-04] MEDS: NITROGLYCERIN OINT 1GM/INCH UDPKT TD SCH ×3 (08:00→16:47)
[2021-03-04] MEDS: HYDRALAZINE HCL 100MG TABLET PO SCH ×3 (08:00→16:47)
[2021-03-04] MEDS: DORZOLAMIDE 2% OPHTH 10 ML BOTTLE EACHEYE SCH ×3 (09:00→16:49)
[2021-03-04] MEDS: BRIMONIDINE 0.2% OPHTH DROPS 5ML EACHEYE SCH ×3 (09:00→16:48)
[2021-03-04] MEDS: AMLODIPINE 10MG TABLET PO SCH ×2 (09:00→13:12)
[2021-03-04] MEDS: FOLIC ACID/VITAMIN B COMP W-C TABLET PO SCH ×2 (09:00→13:14)
[2021-03-04] MEDS: SEVELAMER CARBONATE 800 MG TABLET PO SCH ×3 (09:00→17:00)
[2021-03-04] MEDS ORDERED: NA PHOS,M-B/NA PHOS,DI-BA ENEMA 118ML PR PRN (12:30)
[2021-03-04] MEDS: TRAMADOL 50MG TABLET PO PRN (13:28)
[2021-03-04] MEDS ORDERED: LACTULOSE 20G/30ML UDC PO PRN (14:00)
[2021-03-04 19:18] LABS: CLARITY URINE TURBID (CLEAR); COLOR URINE YELLOW (YELLOW); KETONES URINE TRACE (NEGATIVE); LEUKOCYTE ESTERASE URINE 3+ (NEGATIVE); NITRITE URINE NEGATIVE (NEGATIVE); OCCULT BLOOD URINE 2+ (NEGATIVE); PROTEIN URINE 3+ (NEGATIVE); SPECIFIC GRAVITY URINE 1.016 (1.005-1.030); UROBILINOGEN URINE 0.2 E.U./dL (0.2-1.0)
[2021-03-04] MEDS: ATORVASTATIN CALCIUM 20MG TABLET PO SCH (19:56)
[2021-03-04] MEDS: FAMOTIDINE 20MG TABLET PO SCH (19:57)
[2021-03-04 20:00] VITALS: BP 145/68
[2021-03-04] MEDS: LATANOPROST 0.005% OPHTH DROPS 2.5ML EACHEYE SCH (22:21)
[2021-03-05] MEDS: NITROGLYCERIN OINT 1GM/INCH UDPKT TD SCH ×3 (00:19→16:50)
[2021-03-05] MEDS: BLOOD SUGAR DIAGNOSTIC STRIP TEST SCH ×4 (05:41→21:00)
[2021-03-05] MEDS: INSULIN LISPRO 100 UNITS/ML SUBCUT SCH ×4 (05:42→21:00)
[2021-03-05 07:50] LABS: HEMATOCRIT. 23.4 % (36.0-48.0); HEMOGLOBIN. 7.8 g/dL (12.0-16.0); MEAN CORPUSCULAR HEMOGLOBIN 32.3 pg (28.0-32.0); MEAN CORPUSCULAR VOLUME 97.2 fL (81.0-99.0); MEAN PLATELET VOLUME 7.9 fl (7.4-10.4); PLATELET 201 x1000/uL (130-400); RED BLOOD CELL COUNT 2.41 mill/uL (4.2-5.4); RED CELL DISTRIBUTION WIDTH 15.6 % (11.6-14.6)
[2021-03-05 08:00] VITALS: BP 131/51
[2021-03-05] MEDS: HYDROMORPHONE HCL/PF 2MG/ML CPJ IV PRN (08:49)
[2021-03-05] MEDS: HYDRALAZINE HCL 100MG TABLET PO SCH ×3 (08:49→16:49)
[2021-03-05] MEDS: BRIMONIDINE 0.2% OPHTH DROPS 5ML EACHEYE SCH ×2 (08:59→16:50)
[2021-03-05] MEDS: SEVELAMER CARBONATE 800 MG TABLET PO SCH ×4 (09:00→16:50)
[2021-03-05] MEDS: DORZOLAMIDE 2% OPHTH 10 ML BOTTLE EACHEYE SCH ×2 (09:00→16:50)
[2021-03-05] MEDS ORDERED: HYDROMORPHONE HCL 2MG TABLET PO PRN (12:15)
[2021-03-05 16:31] LABS: PLATELET ESTIMATE NORMAL
[2021-03-05] MEDS: BACLOFEN 10MG TABLET PO SCH (16:49)
[2021-03-05 20:00] VITALS: BP 148/66
[2021-03-05] MEDS: FAMOTIDINE 20MG TABLET PO SCH (21:00)
[2021-03-05] MEDS: ATORVASTATIN CALCIUM 20MG TABLET PO SCH (22:30)
[2021-03-05] MEDS: LATANOPROST 0.005% OPHTH DROPS 2.5ML EACHEYE SCH (22:31)
[2021-03-06] MEDS: DEXAMETHASONE 4MG/ML 1ML VIAL IV SCH ×4 (01:12→17:00)
[2021-03-06 04:00] VITALS: BP 133/65
[2021-03-06] MEDS: BLOOD SUGAR DIAGNOSTIC STRIP TEST SCH ×4 (06:13→21:00)
[2021-03-06] MEDS: HYDRALAZINE HCL 100MG TABLET PO SCH ×3 (06:14→16:00)
[2021-03-06] MEDS: NITROGLYCERIN OINT 1GM/INCH UDPKT TD SCH ×3 (08:00→16:24)
[2021-03-06 08:10] VITALS: BP 210/77
[2021-03-06] MEDS: CLONIDINE 0.1MG TABLET PO PRN (08:46)
[2021-03-06] MEDS: AMLODIPINE 10MG TABLET PO SCH ×2 (08:47→09:00)
[2021-03-06] MEDS: FOLIC ACID/VITAMIN B COMP W-C TABLET PO SCH ×2 (08:47→09:00)
[2021-03-06] MEDS: SEVELAMER CARBONATE 800 MG TABLET PO SCH ×4 (08:47→16:59)
[2021-03-06] MEDS: BACLOFEN 10MG TABLET PO SCH ×3 (08:47→16:59)
[2021-03-06] MEDS: LIDOCAINE 5% PATCH TOP SCH ×2 (08:52→09:00)
[2021-03-06] MEDS: DORZOLAMIDE 2% OPHTH 10 ML BOTTLE EACHEYE SCH ×3 (08:53→16:26)
[2021-03-06] MEDS: BRIMONIDINE 0.2% OPHTH DROPS 5ML EACHEYE SCH ×3 (08:53→16:26)
[2021-03-06] MEDS: INSULIN LISPRO 100 UNITS/ML SUBCUT SCH ×4 (08:54→22:12)
[2021-03-06] MEDS ORDERED: CLONIDINE HCL 0.3MG/24HR PATCH TD SCH (12:00)
[2021-03-06] MEDS: HYDROMORPHONE HCL/PF 2MG/ML CPJ IV PRN (14:02)
[2021-03-06 14:06] VITALS: BP 196/77
[2021-03-06] MEDS: DEXT 5%/0.9% NACL 1,000 ML IV SCH ×2 (16:11→22:14)
[2021-03-06 16:20] VITALS: BP 176/56
[2021-03-06 20:00] VITALS: BP 155/64
[2021-03-06] MEDS: LATANOPROST 0.005% OPHTH DROPS 2.5ML EACHEYE SCH (22:05)
[2021-03-06] MEDS: ATORVASTATIN CALCIUM 20MG TABLET PO SCH (22:05)
[2021-03-06] MEDS: FAMOTIDINE 20MG TABLET PO SCH (22:12)
[2021-03-06 22:44] LABS: HEPATITIS B SURFACE ANTIGEN NEGATIVE
[2021-03-06 23:13] LABS: HEPATITIS A AB IGM NEGATIVE (NEGATIVE)
[2021-03-07] MEDS: HYDRALAZINE HCL 100MG TABLET PO SCH ×4 (00:45→23:10)
[2021-03-07] MEDS: NITROGLYCERIN OINT 1GM/INCH UDPKT TD SCH ×4 (00:45→23:24)
[2021-03-07] MEDS: DEXAMETHASONE 4MG/ML 1ML VIAL IV SCH ×5 (00:45→23:08)
[2021-03-07] MEDS: BLOOD SUGAR DIAGNOSTIC STRIP TEST SCH ×4 (06:05→21:16)
[2021-03-07] MEDS: DEXT 5%/0.9% NACL 1,000 ML IV SCH ×3 (06:06→20:24)
[2021-03-07] MEDS: INSULIN LISPRO 100 UNITS/ML SUBCUT SCH ×4 (06:13→21:16)
[2021-03-07 06:33] LABS: BASOPHILS % 0.2 % (0.0-2.0); HEMATOCRIT. 26.1 % (36.0-48.0); HEMOGLOBIN. 8.7 g/dL (12.0-16.0); LYMPHOCYTES % 9.2 % (20.0-50.0); MEAN CORPUSCULAR HEMOGLOBIN 32.4 pg (28.0-32.0); MEAN CORPUSCULAR VOLUME 96.6 fL (81.0-99.0); MEAN PLATELET VOLUME 7.3 fl (7.4-10.4); MONOCYTES % 9.9 % (2.0-8.0); NEUTROPHILS % 80.7 % (40.0-76.0); PLATELET 250 x1000/uL (130-400); RED CELL DISTRIBUTION WIDTH 15.5 % (11.6-14.6)
[2021-03-07 08:00] VITALS: BP 124/57
[2021-03-07] MEDS: LIDOCAINE 5% PATCH TOP SCH (08:19)
[2021-03-07] MEDS: BACLOFEN 10MG TABLET PO SCH ×2 (08:19→16:55)
[2021-03-07] MEDS: SEVELAMER CARBONATE 800 MG TABLET PO SCH ×3 (08:19→17:08)
[2021-03-07] MEDS: FOLIC ACID/VITAMIN B COMP W-C TABLET PO SCH (08:20)
[2021-03-07] MEDS: DORZOLAMIDE 2% OPHTH 10 ML BOTTLE EACHEYE SCH ×2 (08:20→17:07)
[2021-03-07] MEDS: BRIMONIDINE 0.2% OPHTH DROPS 5ML EACHEYE SCH ×2 (08:21→16:59)
[2021-03-07] MEDS: AMLODIPINE 10MG TABLET PO SCH (08:21)
[2021-03-07] MEDS: HYDROMORPHONE HCL/PF 2MG/ML CPJ IV PRN (08:30)
[2021-03-07] MEDS ORDERED: FLUCONAZOLE 100MG TABLET PO NR (10:21)
[2021-03-07] MEDS: LEVOFLOXACIN 500MG TABLET PO SCH (11:17)
[2021-03-07 20:00] VITALS: BP 130/49
[2021-03-07] MEDS: ATORVASTATIN CALCIUM 20MG TABLET PO SCH (20:18)
[2021-03-07] MEDS: FAMOTIDINE 20MG TABLET PO SCH (20:18)
[2021-03-07] MEDS: LATANOPROST 0.005% OPHTH DROPS 2.5ML EACHEYE SCH (20:18)
[2021-03-08] MEDS: CLONIDINE 0.1MG TABLET PO PRN (01:11)
[2021-03-08] MEDS: DEXAMETHASONE 4MG/ML 1ML VIAL IV SCH ×2 (05:20→12:24)
[2021-03-08] MEDS: DEXT 5%/0.9% NACL 1,000 ML IV SCH ×2 (05:21→20:38)
[2021-03-08] MEDS: BLOOD SUGAR DIAGNOSTIC STRIP TEST SCH ×4 (05:27→20:30)
[2021-03-08] MEDS: INSULIN LISPRO 100 UNITS/ML SUBCUT SCH ×4 (06:40→20:37)
[2021-03-08] MEDS: BACLOFEN 10MG TABLET PO SCH ×2 (08:27→16:39)
[2021-03-08] MEDS: SEVELAMER CARBONATE 800 MG TABLET PO SCH ×3 (08:27→16:39)
[2021-03-08] MEDS: FOLIC ACID/VITAMIN B COMP W-C TABLET PO SCH (08:27)
[2021-03-08] MEDS: FLUCONAZOLE 100MG TABLET PO SCH (08:27)
[2021-03-08] MEDS: AMLODIPINE 10MG TABLET PO SCH (08:28)
[2021-03-08] MEDS: NITROGLYCERIN OINT 1GM/INCH UDPKT TD SCH ×3 (08:28→23:51)
[2021-03-08] MEDS: HYDRALAZINE HCL 100MG TABLET PO SCH ×3 (08:28→23:51)
[2021-03-08] MEDS: DORZOLAMIDE 2% OPHTH 10 ML BOTTLE EACHEYE SCH ×2 (08:29→16:40)
[2021-03-08] MEDS: LIDOCAINE 5% PATCH TOP SCH (08:29)
[2021-03-08] MEDS: BRIMONIDINE 0.2% OPHTH DROPS 5ML EACHEYE SCH ×2 (08:29→16:40)
[2021-03-08 20:00] VITALS: BP 147/40
[2021-03-08] MEDS: FAMOTIDINE 20MG TABLET PO SCH (20:27)
[2021-03-08] MEDS: ATORVASTATIN CALCIUM 20MG TABLET PO SCH (20:28)
[2021-03-08] MEDS: LATANOPROST 0.005% OPHTH DROPS 2.5ML EACHEYE SCH (20:30)
[2021-03-09] MEDS ORDERED: HYDROMORPHONE HCL/PF 2MG/ML CPJ IV PRN (01:45)
[2021-03-09] MEDS: BLOOD SUGAR DIAGNOSTIC STRIP TEST SCH ×4 (06:30→21:00)
[2021-03-09] MEDS: DEXT 5%/0.9% NACL 1,000 ML IV SCH ×2 (06:30→17:23)
[2021-03-09] MEDS: INSULIN LISPRO 100 UNITS/ML SUBCUT SCH ×4 (06:41→21:00)
[2021-03-09 07:43] VITALS: BP 180/63
[2021-03-09] MEDS: NITROGLYCERIN OINT 1GM/INCH UDPKT TD SCH ×3 (08:00→17:22)
[2021-03-09] MEDS: HYDRALAZINE HCL 100MG TABLET PO SCH ×4 (08:00→17:41)
[2021-03-09] MEDS: FOLIC ACID/VITAMIN B COMP W-C TABLET PO SCH ×2 (09:00→11:07)
[2021-03-09] MEDS: BACLOFEN 10MG TABLET PO SCH ×4 (09:00→17:42)
[2021-03-09] MEDS: AMLODIPINE 10MG TABLET PO SCH ×2 (09:00→11:08)
[2021-03-09] MEDS: LEVOFLOXACIN 500MG TABLET PO SCH ×2 (09:00→11:10)
[2021-03-09] MEDS: BRIMONIDINE 0.2% OPHTH DROPS 5ML EACHEYE SCH ×3 (09:00→17:25)
[2021-03-09] MEDS: SEVELAMER CARBONATE 800 MG TABLET PO SCH ×5 (09:00→17:42)
[2021-03-09] MEDS: DORZOLAMIDE 2% OPHTH 10 ML BOTTLE EACHEYE SCH ×3 (09:00→17:25)
[2021-03-09] MEDS: LIDOCAINE 5% PATCH TOP SCH ×2 (09:00→11:09)
[2021-03-09] MEDS: FLUCONAZOLE 100MG TABLET PO SCH ×2 (09:00→11:08)
[2021-03-09 20:00] VITALS: BP 126/54
[2021-03-09] MEDS: LATANOPROST 0.005% OPHTH DROPS 2.5ML EACHEYE SCH (21:00)
[2021-03-09] MEDS: FAMOTIDINE 20MG TABLET PO SCH (21:00)
[2021-03-09] MEDS: ATORVASTATIN CALCIUM 20MG TABLET PO SCH (21:00)
[2021-03-10] MEDS: NITROGLYCERIN OINT 1GM/INCH UDPKT TD SCH ×3 (00:32→16:51)
[2021-03-10] MEDS: DEXT 5%/0.9% NACL 1,000 ML IV SCH ×3 (03:44→21:35)
[2021-03-10] MEDS: INSULIN LISPRO 100 UNITS/ML SUBCUT SCH ×4 (06:26→21:34)
[2021-03-10] MEDS: BLOOD SUGAR DIAGNOSTIC STRIP TEST SCH ×4 (06:26→21:34)
[2021-03-10] MEDS: HYDRALAZINE HCL 100MG TABLET PO SCH ×3 (08:00→16:51)
[2021-03-10 08:25] VITALS: BP 180/81
[2021-03-10] MEDS: DORZOLAMIDE 2% OPHTH 10 ML BOTTLE EACHEYE SCH ×2 (08:31→16:52)
[2021-03-10] MEDS: BRIMONIDINE 0.2% OPHTH DROPS 5ML EACHEYE SCH ×2 (08:31→16:52)
[2021-03-10] MEDS: AMLODIPINE 10MG TABLET PO SCH ×3 (08:32→09:49)
[2021-03-10] MEDS: LIDOCAINE 5% PATCH TOP SCH (08:32)
[2021-03-10] MEDS: FOLIC ACID/VITAMIN B COMP W-C TABLET PO SCH ×2 (08:32→08:47)
[2021-03-10] MEDS: FLUCONAZOLE 100MG TABLET PO SCH ×3 (08:33→09:49)
[2021-03-10] MEDS: SEVELAMER CARBONATE 800 MG TABLET PO SCH ×2 (13:40→16:51)
[2021-03-10] MEDS: BACLOFEN 10MG TABLET PO SCH (16:51)
[2021-03-10 20:00] VITALS: BP 167/68
[2021-03-10] MEDS: LATANOPROST 0.005% OPHTH DROPS 2.5ML EACHEYE SCH (21:00)
[2021-03-10] MEDS: CLONIDINE 0.1MG TABLET PO PRN (21:33)
[2021-03-10] MEDS: ATORVASTATIN CALCIUM 20MG TABLET PO SCH (21:33)
[2021-03-10] MEDS: FAMOTIDINE 20MG TABLET PO SCH (21:33)
[2021-03-11] MEDS: HYDRALAZINE HCL 100MG TABLET PO SCH ×4 (00:13→16:00)
[2021-03-11] MEDS: NITROGLYCERIN OINT 1GM/INCH UDPKT TD SCH ×3 (00:18→15:54)
[2021-03-11] MEDS: BLOOD SUGAR DIAGNOSTIC STRIP TEST SCH ×4 (06:08→21:26)
[2021-03-11] MEDS: LEVOFLOXACIN 500MG TABLET PO SCH (08:03)
[2021-03-11] MEDS: AMLODIPINE 10MG TABLET PO SCH (08:03)
[2021-03-11] MEDS: BACLOFEN 10MG TABLET PO SCH ×2 (08:03→17:00)
[2021-03-11] MEDS: LIDOCAINE 5% PATCH TOP SCH (08:04)
[2021-03-11] MEDS: FOLIC ACID/VITAMIN B COMP W-C TABLET PO SCH (08:08)
[2021-03-11] MEDS: SEVELAMER CARBONATE 800 MG TABLET PO SCH ×3 (08:08→17:00)
[2021-03-11] MEDS: FLUCONAZOLE 100MG TABLET PO SCH (08:08)
[2021-03-11] MEDS: INSULIN LISPRO 100 UNITS/ML SUBCUT SCH ×4 (08:13→22:06)
[2021-03-11 08:20] VITALS: BP 216/88
[2021-03-11] MEDS: DORZOLAMIDE 2% OPHTH 10 ML BOTTLE EACHEYE SCH ×3 (09:00→17:00)
[2021-03-11] MEDS: BRIMONIDINE 0.2% OPHTH DROPS 5ML EACHEYE SCH ×3 (09:00→17:00)
[2021-03-11] MEDS: DEXT 5%/0.9% NACL 1,000 ML IV SCH ×2 (09:06→23:16)
[2021-03-11 10:51] VITALS: BP 187/67
[2021-03-11] MEDS: CLONIDINE 0.1MG TABLET PO PRN (10:55)
[2021-03-11 11:46] LABS: BASOPHILS % 0.4 % (0.0-2.0); EOSINOPHILS % 1.2 % (0.0-5.0); HEMATOCRIT. 23.6 % (36.0-48.0); HEMOGLOBIN. 7.5 g/dL (12.0-16.0); LYMPHOCYTES % 10.4 % (20.0-50.0); MEAN CORPUSCULAR HEMOGLOBIN 32.3 pg (28.0-32.0); MEAN CORPUSCULAR VOLUME 101.3 fL (81.0-99.0); MEAN PLATELET VOLUME 7.6 fl (7.4-10.4); MONOCYTES % 7.2 % (2.0-8.0); NEUTROPHILS % 80.8 % (40.0-76.0); PLATELET 184 x1000/uL (130-400); RED BLOOD CELL COUNT 2.33 mill/uL (4.2-5.4); RED CELL DISTRIBUTION WIDTH 16.1 % (11.6-14.6)
[2021-03-11] MEDS: POTASSIUM CHLORIDE 20MEQ/PACKET PO NR ×2 (14:45→15:54)
[2021-03-11 20:00] VITALS: BP 147/68
[2021-03-11] MEDS: FAMOTIDINE 20MG TABLET PO SCH (21:00)
[2021-03-11] MEDS: ATORVASTATIN CALCIUM 20MG TABLET PO SCH (21:00)
[2021-03-11] MEDS: LATANOPROST 0.005% OPHTH DROPS 2.5ML EACHEYE SCH (21:27)
[2021-03-12] MEDS: NITROGLYCERIN OINT 1GM/INCH UDPKT TD SCH ×3 (01:41→16:40)
[2021-03-12] MEDS: BLOOD SUGAR DIAGNOSTIC STRIP TEST SCH ×3 (06:11→16:46)
[2021-03-12] MEDS: INSULIN LISPRO 100 UNITS/ML SUBCUT SCH ×3 (06:19→17:00)
[2021-03-12 07:46] VITALS: BP 168/68
[2021-03-12] MEDS: HYDRALAZINE HCL 100MG TABLET PO SCH ×3 (08:39→16:46)
[2021-03-12] MEDS: FOLIC ACID/VITAMIN B COMP W-C TABLET PO SCH (08:45)
[2021-03-12] MEDS: AMLODIPINE 10MG TABLET PO SCH (08:45)
[2021-03-12] MEDS: SEVELAMER CARBONATE 800 MG TABLET PO SCH ×3 (08:45→16:53)
[2021-03-12] MEDS: FLUCONAZOLE 100MG TABLET PO SCH (08:45)
[2021-03-12] MEDS: BACLOFEN 10MG TABLET PO SCH ×2 (08:45→16:45)
[2021-03-12] MEDS: LIDOCAINE 5% PATCH TOP SCH (08:46)
[2021-03-12] MEDS: DORZOLAMIDE 2% OPHTH 10 ML BOTTLE EACHEYE SCH ×2 (08:59→17:00)
[2021-03-12] MEDS: BRIMONIDINE 0.2% OPHTH DROPS 5ML EACHEYE SCH ×2 (08:59→17:00)
[2021-03-12 11:45] LABS: BASOPHILS % 0.5 % (0.0-2.0); EOSINOPHILS % 3.9 % (0.0-5.0); HEMATOCRIT. 23.9 % (36.0-48.0); HEMOGLOBIN. 7.9 g/dL (12.0-16.0); LYMPHOCYTES % 15.1 % (20.0-50.0); MEAN CORPUSCULAR HEMOGLOBIN 32.2 pg (28.0-32.0); MEAN PLATELET VOLUME 7.6 fl (7.4-10.4); NEUTROPHILS % 71.5 % (40.0-76.0); PLATELET 180 x1000/uL (130-400); RED BLOOD CELL COUNT 2.46 mill/uL (4.2-5.4); RED CELL DISTRIBUTION WIDTH 15.2 % (11.6-14.6)
[2021-03-12 13:12] VITALS: BP 172/59
[2021-03-12] MEDS: CLONIDINE 0.1MG TABLET PO PRN (13:12)
[2021-03-12] MEDS: DEXT 5%/0.9% NACL 1,000 ML IV SCH (13:22)
[2021-03-12 14:10] VITALS: BP 154/66
[2021-03-12] MEDS ORDERED: NALOXONE HCL 0.4MG/ML VIAL IV PRN (16:30)
[2021-03-12 17:17] VITALS: BP 175/61
== END 2021-03-12 18:20 | disposition short-term general hospital (02) | DRG 551 ==
LOC: 4WST 21:25 → UNDOADMIN 21:25
PROVIDERS: ADMIT Psychiatry & Neurology Neurology; ATTEND Internal Medicine
PROC: 5A1D70Z Performance of Urinary Filtration, Intermittent, Less than 6 Hours Per Day (ICD-10-PCS; principal; 2021-03-04)
PROC: 5A1D70Z Performance of Urinary Filtration, Intermittent, Less than 6 Hours Per Day (ICD-10-PCS; 2021-03-05)
PROC: 5A1D70Z Performance of Urinary Filtration, Intermittent, Less than 6 Hours Per Day (ICD-10-PCS; 2021-03-07)
PROC: 5A1D70Z Performance of Urinary Filtration, Intermittent, Less than 6 Hours Per Day (ICD-10-PCS; 2021-03-09)
PROC: 5A1D70Z Performance of Urinary Filtration, Intermittent, Less than 6 Hours Per Day (ICD-10-PCS; 2021-03-11)
DX: M48.02 Spinal stenosis, cervical region (principal); N18.6 End stage renal disease; G92 Toxic encephalopathy; I50.32 Chronic diastolic (congestive) heart failure; I13.2 Hypertensive heart and chronic kidney disease with heart failure and with stage 5 chronic kidney disease, or end stage renal disease; N39.0 Urinary tract infection, site not specified; M47.16 Other spondylosis with myelopathy, lumbar region; M47.12 Other spondylosis with myelopathy, cervical region; M19.90 Unspecified osteoarthritis, unspecified site; I27.20 Pulmonary hypertension, unspecified; D63.1 Anemia in chronic kidney disease; E11.22 Type 2 diabetes mellitus with diabetic chronic kidney disease; E78.00 Pure hypercholesterolemia, unspecified; F32.9 Major depressive disorder, single episode, unspecified; F41.9 Anxiety disorder, unspecified; I25.10 Atherosclerotic heart disease of native coronary artery without angina pectoris; R26.89 Other abnormalities of gait and mobility; T38.0X5A Adverse effect of glucocorticoids and synthetic analogues, initial encounter; Z96.653 Presence of artificial knee joint, bilateral; Y92.89 Other specified places as the place of occurrence of the external cause; Z99.2 Dependence on renal dialysis; Z88.8 Allergy status to other drugs, medicaments and biological substances; Z79.899 Other long term (current) drug therapy; Z79.82 Long term (current) use of aspirin; Z79.4 Long term (current) use of insulin; M54.12 Radiculopathy, cervical region
CPT/HCPCS: 36415; 70551; 71045; 72141; 80048; 81003; 82962; 83735; 84100; 85025; 86705; 86709; 86803; 87077; 87186; 87340; 92523; 92610; 93970; 93971; 97110; 97162; 97166; 97530; 97535; J1100; J1170; J1815; J7042; L0172

== ENCOUNTER 2021-03-12 20:43 | Inpatient (IN) | payer MEDICARE, BC ==
[~2021-03-12] VITALS: Ht 167.6 cm; Wt 67.6 kg
[~2021-03-12 20:43] MED LIST changes: -HYDRALAZINE HCL 25MG TABLET PO SCH; +MIRT-89 MT; -MIRT15TA6 MT
[2021-03-12 21:15] VITALS: BP 193/67
[2021-03-12] MEDS: CLONIDINE 0.1MG TABLET PO PRN (22:04)
[2021-03-12] MEDS ORDERED: DEXTROSE 50% WATER 50ML SYRINGE IV PRN (22:15)
[2021-03-12] MEDS ORDERED: BISACODYL 5MG TABLET PO PRN (22:15)
[2021-03-12] MEDS ORDERED: NALOXONE HCL 0.4 MG/ML 1ML VIAL IV PRN (22:15)
[2021-03-12] MEDS ORDERED: GUAIFENESIN 200MG/10ML SUGAR FREE UDC PO PRN (22:15)
[2021-03-12] MEDS ORDERED: IPRATROPIUM/ALBUTEROL 0.5-3(2.5)MG/3ML NEB HHN PRN (22:15)
[2021-03-12] MEDS ORDERED: MAGNESIUM/ALUMINUM HYDROXIDE/SIMETHICONE 30ML UDC PO PRN (22:15)
[2021-03-12] MEDS ORDERED: HYDROMORPHONE HCL/PF 2MG/ML CPJ IV PRN (22:15)
[2021-03-12] MEDS ORDERED: BISACODYL 10MG SUPP PR PRN (22:15)
[2021-03-12] MEDS ORDERED: DIPHENHYDRAMINE 50MG/ML VIAL IV PRN (22:15)
[2021-03-12] MEDS ORDERED: LACTULOSE 20G/30ML UDC PO PRN (22:15)
[2021-03-12] MEDS ORDERED: ONDANSETRON HCL 4MG/2ML INJ IV PRN (22:15)
[2021-03-12] MEDS ORDERED: NITROGLYCERIN 0.4MG TABLET SL SL PRN (22:15)
[2021-03-12] MEDS: DEXT 5%/0.9% NACL 1,000 ML IV SCH (23:00)
[2021-03-13] MEDS ORDERED: DEXTROSE 50% WATER 50ML SYRINGE IV PRN (03:00)
[2021-03-13 04:00] VITALS: BP 158/49
[2021-03-13] MEDS: NITROGLYCERIN OINT 1GM/INCH UDPKT TD SCH ×2 (05:03→14:00)
[2021-03-13] MEDS: HYDRALAZINE HCL 100MG TABLET PO SCH ×3 (06:00→22:00)
[2021-03-13] MEDS ORDERED: BLOOD SUGAR DIAGNOSTIC STRIP TEST SCH (06:40)
[2021-03-13] MEDS: SEVELAMER CARBONATE 800 MG TABLET PO SCH ×3 (06:54→17:10)
[2021-03-13] MEDS: BLOOD SUGAR DIAGNOSTIC STRIP TEST SCH ×4 (06:54→23:05)
[2021-03-13] MEDS: INSULIN LISPRO 100 UNITS/ML SUBCUT SCH ×4 (06:55→21:00)
[2021-03-13 08:00] VITALS: BP 157/56
[2021-03-13] MEDS: FOLIC ACID/VITAMIN B COMP W-C TABLET PO SCH (09:00)
[2021-03-13] MEDS: AMLODIPINE 10MG TABLET PO SCH (09:00)
[2021-03-13] MEDS: LIDOCAINE 5% PATCH TOP SCH (09:00)
[2021-03-13] MEDS: BACLOFEN 10MG TABLET PO SCH ×2 (09:00→17:00)
[2021-03-13] MEDS: BRIMONIDINE 0.2% OPHTH DROPS 5ML EACHEYE SCH ×2 (09:00→17:00)
[2021-03-13] MEDS: DOCUSATE SODIUM 100MG CAPSULE PO SCH ×2 (09:00→17:00)
[2021-03-13] MEDS: CLONIDINE HCL 0.3MG/24HR PATCH TD SCH (09:00)
[2021-03-13] MEDS ORDERED: NA PHOS,M-B/NA PHOS,DI-BA ENEMA 118ML PR PRN (09:00)
[2021-03-13] MEDS ORDERED: FLUCONAZOLE 100MG TABLET PO SCH (09:00)
[2021-03-13] MEDS: DORZOLAMIDE 2% OPHTH 10 ML BOTTLE EACHEYE SCH ×2 (09:00→18:23)
[2021-03-13 11:36] LABS: BASOPHILS % 0.9 % (0.0-2.0); EOSINOPHILS % 3.5 % (0.0-5.0); HEMATOCRIT. 22.4 % (36.0-48.0); HEMOGLOBIN. 7.4 g/dL (12.0-16.0); LYMPHOCYTES % 14.7 % (20.0-50.0); MEAN CORPUSCULAR HEMOGLOBIN 32.5 pg (28.0-32.0); MEAN CORPUSCULAR VOLUME 98.7 fL (81.0-99.0); MEAN PLATELET VOLUME 7.5 fl (7.4-10.4); MONOCYTES % 9.2 % (2.0-8.0); NEUTROPHILS % 71.7 % (40.0-76.0); PLATELET 160 x1000/uL (130-400); RED BLOOD CELL COUNT 2.27 mill/uL (4.2-5.4); RED CELL DISTRIBUTION WIDTH 15.4 % (11.6-14.6)
[2021-03-13 12:00] VITALS: BP 178/54
[2021-03-13 12:20] LABS: HEPATITIS B SURFACE ANTIGEN NEGATIVE
[2021-03-13] MEDS: ACETAMINOPHEN 650MG SUPP PR PRN (14:07)
[2021-03-13] MEDS: DEXT 5%/0.9% NACL 1,000 ML IV SCH (14:24)
[2021-03-13 16:00] VITALS: BP 169/72
[2021-03-13] MEDS: FERROUS SULFATE 300MG/5ML UDC PO SCH (17:10)
[2021-03-13 20:00] VITALS: BP 168/65
[2021-03-13] MEDS: ATORVASTATIN CALCIUM 20MG TABLET PO SCH (21:00)
[2021-03-13] MEDS: FAMOTIDINE 20MG TABLET PO SCH (21:00)
[2021-03-14] VITALS (8 sets, daily range): BP systolic 103–194; BP diastolic 49–69
[2021-03-14] MEDS: CLONIDINE HCL 0.3MG/24HR PATCH TD SCH (02:49)
[2021-03-14] MEDS: NITROGLYCERIN OINT 1GM/INCH UDPKT TD SCH ×5 (02:51→23:12)
[2021-03-14] MEDS: HYDRALAZINE HCL 100MG TABLET PO SCH ×4 (03:13→23:11)
[2021-03-14] MEDS: BLOOD SUGAR DIAGNOSTIC STRIP TEST SCH ×4 (07:05→21:00)
[2021-03-14] MEDS: FERROUS SULFATE 300MG/5ML UDC PO SCH ×2 (07:05→16:53)
[2021-03-14] MEDS: SEVELAMER CARBONATE 800 MG TABLET PO SCH ×3 (07:05→16:53)
[2021-03-14] MEDS: DEXT 5%/0.9% NACL 1,000 ML IV SCH ×2 (07:05→21:12)
[2021-03-14] MEDS: INSULIN LISPRO 100 UNITS/ML SUBCUT SCH ×4 (07:06→21:00)
[2021-03-14] MEDS: DORZOLAMIDE 2% OPHTH 10 ML BOTTLE EACHEYE SCH ×2 (08:38→22:15)
[2021-03-14] MEDS: BRIMONIDINE 0.2% OPHTH DROPS 5ML EACHEYE SCH ×2 (08:39→16:54)
[2021-03-14] MEDS: LIDOCAINE 5% PATCH TOP SCH ×2 (08:41→08:51)
[2021-03-14] MEDS: DOCUSATE SODIUM 100MG CAPSULE PO SCH ×2 (08:41→08:51)
[2021-03-14] MEDS: AMLODIPINE 10MG TABLET PO SCH (08:42)
[2021-03-14] MEDS: FOLIC ACID/VITAMIN B COMP W-C TABLET PO SCH ×2 (08:42→08:51)
[2021-03-14] MEDS: CLONIDINE 0.1MG TABLET PO PRN ×2 (08:42→16:53)
[2021-03-14] MEDS: BACLOFEN 10MG TABLET PO SCH ×4 (08:42→18:52)
[2021-03-14] MEDS ORDERED: LEVOFLOXACIN 500MG TABLET PO SCH (09:00)
[2021-03-14] MEDS: DOCUSATE SODIUM SUGAR FREE 100MG/10ML UDC PO SCH (18:52)
[2021-03-14] MEDS: EPOETIN ALFA-EPBX 4,000 UNIT/ML VIAL SUBCUT SCH (21:00)
[2021-03-14] MEDS: ATORVASTATIN CALCIUM 20MG TABLET PO SCH (22:20)
[2021-03-14] MEDS: FAMOTIDINE 20MG TABLET PO SCH (22:21)
[2021-03-15] MEDS: HYDRALAZINE HCL 100MG TABLET PO SCH ×3 (06:30→21:12)
[2021-03-15] MEDS: NITROGLYCERIN OINT 1GM/INCH UDPKT TD SCH ×3 (06:30→21:12)
[2021-03-15] MEDS: INSULIN LISPRO 100 UNITS/ML SUBCUT SCH ×4 (06:52→20:20)
[2021-03-15] MEDS: BLOOD SUGAR DIAGNOSTIC STRIP TEST SCH ×4 (06:53→20:44)
[2021-03-15] MEDS: FERROUS SULFATE 300MG/5ML UDC PO SCH ×2 (06:57→17:50)
[2021-03-15] MEDS: SEVELAMER CARBONATE 800 MG TABLET PO SCH ×3 (06:57→18:43)
[2021-03-15 08:00] VITALS: BP 125/71
[2021-03-15] MEDS: BRIMONIDINE 0.2% OPHTH DROPS 5ML EACHEYE SCH ×2 (09:57→17:51)
[2021-03-15] MEDS: AMLODIPINE 10MG TABLET PO SCH (09:57)
[2021-03-15] MEDS: FOLIC ACID/VITAMIN B COMP W-C TABLET PO SCH (09:57)
[2021-03-15] MEDS: DOCUSATE SODIUM SUGAR FREE 100MG/10ML UDC PO SCH (09:57)
[2021-03-15] MEDS: DORZOLAMIDE 2% OPHTH 10 ML BOTTLE EACHEYE SCH ×2 (09:57→17:51)
[2021-03-15] MEDS: LIDOCAINE 5% PATCH TOP SCH (09:58)
[2021-03-15 12:00] VITALS: BP 164/43
[2021-03-15] MEDS: DEXT 5%/0.9% NACL 1,000 ML IV SCH (13:10)
[2021-03-15 16:00] VITALS: BP 150/65
[2021-03-15] MEDS: BACLOFEN 10MG TABLET PO SCH (17:52)
[2021-03-15 20:00] VITALS: BP 157/62
[2021-03-15] MEDS: FAMOTIDINE 20MG TABLET PO SCH (20:19)
[2021-03-15] MEDS: ATORVASTATIN CALCIUM 20MG TABLET PO SCH (20:19)
[2021-03-16] VITALS: BP 121/73
[2021-03-16 04:00] VITALS: BP_SYST 132; BP_DIAS 60; BP_DIAS 62
[2021-03-16] MEDS: DEXT 5%/0.9% NACL 1,000 ML IV SCH ×2 (04:05→20:50)
[2021-03-16] MEDS: NITROGLYCERIN OINT 1GM/INCH UDPKT TD SCH ×3 (05:00→20:56)
[2021-03-16] MEDS: HYDRALAZINE HCL 100MG TABLET PO SCH ×3 (05:01→20:56)
[2021-03-16] MEDS: INSULIN LISPRO 100 UNITS/ML SUBCUT SCH ×4 (06:25→21:00)
[2021-03-16] MEDS: BLOOD SUGAR DIAGNOSTIC STRIP TEST SCH ×4 (06:25→20:51)
[2021-03-16 08:00] VITALS: BP 190/103
[2021-03-16] MEDS: SEVELAMER CARBONATE 800 MG TABLET PO SCH ×2 (11:34→17:58)
[2021-03-16] MEDS: FERROUS SULFATE 300MG/5ML UDC PO SCH ×2 (11:34→17:59)
[2021-03-16] MEDS: DOCUSATE SODIUM SUGAR FREE 100MG/10ML UDC PO SCH (11:35)
[2021-03-16] MEDS: FOLIC ACID/VITAMIN B COMP W-C TABLET PO SCH (11:35)
[2021-03-16] MEDS: BACLOFEN 10MG TABLET PO SCH (11:35)
[2021-03-16] MEDS: AMLODIPINE 10MG TABLET PO SCH (11:36)
[2021-03-16 12:00] VITALS: BP 189/100
[2021-03-16 16:00] VITALS: BP 181/62
[2021-03-16] MEDS: BRIMONIDINE 0.2% OPHTH DROPS 5ML EACHEYE SCH ×2 (17:00→18:05)
[2021-03-16] MEDS: LIDOCAINE 5% PATCH TOP SCH (17:54)
[2021-03-16] MEDS: DORZOLAMIDE 2% OPHTH 10 ML BOTTLE EACHEYE SCH ×2 (18:05→21:00)
[2021-03-16 20:00] VITALS: BP 153/54
[2021-03-16] MEDS: FAMOTIDINE 20MG TABLET PO SCH (20:55)
[2021-03-16] MEDS: CARVEDILOL 12.5MG TABLET PO SCH (20:55)
[2021-03-16] MEDS: ATORVASTATIN CALCIUM 20MG TABLET PO SCH (20:55)
[2021-03-16] MEDS: EPOETIN ALFA-EPBX 4,000 UNIT/ML VIAL SUBCUT SCH (22:09)
[2021-03-17] VITALS: BP 138/60
[2021-03-17 04:00] VITALS: BP 147/50
[2021-03-17] MEDS: BLOOD SUGAR DIAGNOSTIC STRIP TEST SCH ×4 (05:59→20:42)
[2021-03-17] MEDS: HYDRALAZINE HCL 100MG TABLET PO SCH ×3 (05:59→22:00)
[2021-03-17] MEDS: NITROGLYCERIN OINT 1GM/INCH UDPKT TD SCH ×3 (05:59→22:00)
[2021-03-17] MEDS: FERROUS SULFATE 300MG/5ML UDC PO SCH ×2 (05:59→17:33)
[2021-03-17] MEDS: SEVELAMER CARBONATE 800 MG TABLET PO SCH ×3 (06:12→17:33)
[2021-03-17] MEDS: INSULIN LISPRO 100 UNITS/ML SUBCUT SCH ×4 (06:12→20:42)
[2021-03-17 08:00] VITALS: BP 117/68
[2021-03-17] MEDS: AMLODIPINE 10MG TABLET PO SCH (09:00)
[2021-03-17] MEDS: CARVEDILOL 12.5MG TABLET PO SCH ×2 (09:00→21:00)
[2021-03-17] MEDS: DORZOLAMIDE 2% OPHTH 10 ML BOTTLE EACHEYE SCH ×2 (09:36→21:00)
[2021-03-17] MEDS: FOLIC ACID/VITAMIN B COMP W-C TABLET PO SCH (09:36)
[2021-03-17] MEDS: BACLOFEN 10MG TABLET PO SCH ×3 (09:36→17:33)
[2021-03-17] MEDS: BRIMONIDINE 0.2% OPHTH DROPS 5ML EACHEYE SCH ×2 (09:36→17:33)
[2021-03-17] MEDS: LIDOCAINE 5% PATCH TOP SCH (09:37)
[2021-03-17] MEDS: DOCUSATE SODIUM SUGAR FREE 100MG/10ML UDC PO SCH (09:38)
[2021-03-17] MEDS: DEXT 5%/0.9% NACL 1,000 ML IV SCH (10:55)
[2021-03-17 12:00] VITALS: BP 173/46
[2021-03-17] MEDS: CLONIDINE 0.1MG TABLET PO PRN (12:39)
[2021-03-17 13:26] LABS: BASOPHILS % 1.3 % (0.0-2.0); HEMATOCRIT. 23.7 % (36.0-48.0); HEMOGLOBIN. 7.6 g/dL (12.0-16.0); LYMPHOCYTES % 13.3 % (20.0-50.0); MEAN CORPUSCULAR HEMOGLOBIN 31.9 pg (28.0-32.0); MEAN CORPUSCULAR VOLUME 99.7 fL (81.0-99.0); MEAN PLATELET VOLUME 7.5 fl (7.4-10.4); NEUTROPHILS % 72.4 % (40.0-76.0); PLATELET 172 x1000/uL (130-400); RED BLOOD CELL COUNT 2.37 mill/uL (4.2-5.4); RED CELL DISTRIBUTION WIDTH 15.9 % (11.6-14.6)
[2021-03-17 13:54] LABS: PHOSPHORUS 2.6 mg/dL (2.5-4.9)
[2021-03-17 16:00] VITALS: BP 175/58
[2021-03-17 20:00] VITALS: BP 152/64
[2021-03-17] MEDS: FAMOTIDINE 20MG TABLET PO SCH (21:00)
[2021-03-17] MEDS: ATORVASTATIN CALCIUM 20MG TABLET PO SCH (21:00)
[2021-03-18] VITALS: BP 149/100
[2021-03-18] MEDS: DEXT 5%/0.9% NACL 1,000 ML IV SCH ×2 (02:44→20:57)
[2021-03-18 04:00] VITALS: BP 191/72
[2021-03-18] MEDS: CLONIDINE 0.1MG TABLET PO PRN (04:35)
[2021-03-18] MEDS: SEVELAMER CARBONATE 800 MG TABLET PO SCH ×3 (06:29→17:34)
[2021-03-18] MEDS: NITROGLYCERIN OINT 1GM/INCH UDPKT TD SCH ×3 (06:29→22:58)
[2021-03-18] MEDS: FERROUS SULFATE 300MG/5ML UDC PO SCH ×2 (06:29→17:34)
[2021-03-18] MEDS: HYDRALAZINE HCL 100MG TABLET PO SCH ×3 (06:29→22:59)
[2021-03-18] MEDS: INSULIN LISPRO 100 UNITS/ML SUBCUT SCH ×4 (06:36→20:32)
[2021-03-18] MEDS: BLOOD SUGAR DIAGNOSTIC STRIP TEST SCH ×4 (06:43→20:31)
[2021-03-18 08:00] VITALS: BP 154/65
[2021-03-18] MEDS: AMLODIPINE 10MG TABLET PO SCH (09:00)
[2021-03-18] MEDS: LIDOCAINE 5% PATCH TOP SCH (09:37)
[2021-03-18] MEDS: CARVEDILOL 12.5MG TABLET PO SCH ×2 (09:38→21:08)
[2021-03-18] MEDS: DOCUSATE SODIUM SUGAR FREE 100MG/10ML UDC PO SCH (09:38)
[2021-03-18] MEDS: BACLOFEN 10MG TABLET PO SCH ×2 (09:39→17:34)
[2021-03-18] MEDS: BRIMONIDINE 0.2% OPHTH DROPS 5ML EACHEYE SCH ×2 (09:40→17:33)
[2021-03-18] MEDS: FOLIC ACID/VITAMIN B COMP W-C TABLET PO SCH (09:40)
[2021-03-18] MEDS: DORZOLAMIDE 2% OPHTH 10 ML BOTTLE EACHEYE SCH ×2 (09:40→21:06)
[2021-03-18] MEDS: ACETAMINOPHEN 325MG TABLET PO PRN (11:33)
[2021-03-18 12:00] VITALS: BP 154/46
[2021-03-18 16:00] VITALS: BP 167/57
[2021-03-18 20:00] VITALS: BP 156/58
[2021-03-18] MEDS: LATANOPROST 0.005% OPHTH DROPS 2.5ML EACHEYE SCH (21:05)
[2021-03-18] MEDS: ATORVASTATIN CALCIUM 20MG TABLET PO SCH (21:08)
[2021-03-18] MEDS: FAMOTIDINE 20MG TABLET PO SCH (21:08)
[2021-03-19] VITALS: BP 146/50
[2021-03-19 04:00] VITALS: BP 140/62
[2021-03-19] MEDS: HYDRALAZINE HCL 100MG TABLET PO SCH ×3 (06:00→23:43)
[2021-03-19] MEDS: BLOOD SUGAR DIAGNOSTIC STRIP TEST SCH ×4 (06:40→21:50)
[2021-03-19] MEDS: NITROGLYCERIN OINT 1GM/INCH UDPKT TD SCH ×3 (06:47→23:43)
[2021-03-19] MEDS: INSULIN LISPRO 100 UNITS/ML SUBCUT SCH ×4 (06:49→21:42)
[2021-03-19] MEDS: SEVELAMER CARBONATE 800 MG TABLET PO SCH ×4 (06:49→18:03)
[2021-03-19] MEDS: FERROUS SULFATE 300MG/5ML UDC PO SCH ×2 (06:50→18:03)
[2021-03-19 07:05] LABS: PHOSPHORUS 2.7 mg/dL (2.5-4.9)
[2021-03-19 08:00] VITALS: BP 184/66
[2021-03-19] MEDS: FOLIC ACID/VITAMIN B COMP W-C TABLET PO SCH (08:33)
[2021-03-19] MEDS: AMLODIPINE 10MG TABLET PO SCH (08:33)
[2021-03-19] MEDS: BACLOFEN 10MG TABLET PO SCH ×2 (08:33→18:03)
[2021-03-19] MEDS: CARVEDILOL 12.5MG TABLET PO SCH ×2 (08:33→20:54)
[2021-03-19] MEDS: BRIMONIDINE 0.2% OPHTH DROPS 5ML EACHEYE SCH ×2 (08:34→18:03)
[2021-03-19] MEDS: LIDOCAINE 5% PATCH TOP SCH (08:34)
[2021-03-19] MEDS: DORZOLAMIDE 2% OPHTH 10 ML BOTTLE EACHEYE SCH ×2 (08:34→20:54)
[2021-03-19] MEDS: DEXT 5%/0.9% NACL 1,000 ML IV SCH (08:35)
[2021-03-19] MEDS: DOCUSATE SODIUM SUGAR FREE 100MG/10ML UDC PO SCH ×2 (08:37→08:53)
[2021-03-19 12:00] VITALS: BP 186/74
[2021-03-19 16:30] VITALS: BP 144/61
[2021-03-19] MEDS: CLONIDINE 0.1MG TABLET PO PRN (18:04)
[2021-03-19 20:00] VITALS: BP 130/57
[2021-03-19 20:36] LABS: BASOPHILS % 1.6 % (0.0-2.0); HEMATOCRIT. 24.8 % (36.0-48.0); HEMOGLOBIN. 7.7 g/dL (12.0-16.0); LYMPHOCYTES % 23.5 % (20.0-50.0); MEAN CORPUSCULAR VOLUME 103.1 fL (81.0-99.0); MEAN PLATELET VOLUME 8.2 fl (7.4-10.4); MONOCYTES % 11.8 % (2.0-8.0); NEUTROPHILS % 60.1 % (40.0-76.0); PLATELET 187 x1000/uL (130-400); RED BLOOD CELL COUNT 2.41 mill/uL (4.2-5.4); RED CELL DISTRIBUTION WIDTH 16.9 % (11.6-14.6)
[2021-03-19] MEDS: FAMOTIDINE 20MG TABLET PO SCH (20:53)
[2021-03-19] MEDS: THIAMINE HCL 100MG TABLET PO SCH (20:53)
[2021-03-19] MEDS: ATORVASTATIN CALCIUM 20MG TABLET PO SCH (20:53)
[2021-03-19 20:55] LABS: T4 FREE 1.98 ng/dL (0.76-1.46)
[2021-03-19] MEDS: LATANOPROST 0.005% OPHTH DROPS 2.5ML EACHEYE SCH (20:55)
[2021-03-19] MEDS: ACETAMINOPHEN 650MG SUPP PR PRN (20:57)
[2021-03-20] VITALS: BP 133/54
[2021-03-20] MEDS: EPOETIN ALFA-EPBX 4,000 UNIT/ML VIAL SUBCUT SCH (03:36)
[2021-03-20] MEDS: DEXT 5%/0.9% NACL 1,000 ML IV SCH ×2 (03:37→08:23)
[2021-03-20 04:00] VITALS: BP 150/50
[2021-03-20] MEDS: NITROGLYCERIN OINT 1GM/INCH UDPKT TD SCH ×3 (05:03→20:42)
[2021-03-20] MEDS: HYDRALAZINE HCL 100MG TABLET PO SCH ×3 (05:03→22:00)
[2021-03-20] MEDS: BLOOD SUGAR DIAGNOSTIC STRIP TEST SCH ×4 (05:08→21:02)
[2021-03-20] MEDS: INSULIN LISPRO 100 UNITS/ML SUBCUT SCH ×4 (06:34→21:00)
[2021-03-20 07:58] VITALS: BP 126/49
[2021-03-20] MEDS: LIDOCAINE 5% PATCH TOP SCH (08:21)
[2021-03-20] MEDS: FERROUS SULFATE 300MG/5ML UDC PO SCH ×2 (08:22→17:12)
[2021-03-20] MEDS: THIAMINE HCL 100MG TABLET PO SCH (08:22)
[2021-03-20] MEDS: SEVELAMER CARBONATE 800 MG TABLET PO SCH ×3 (08:22→17:10)
[2021-03-20] MEDS: FOLIC ACID/VITAMIN B COMP W-C TABLET PO SCH (08:22)
[2021-03-20] MEDS: DOCUSATE SODIUM SUGAR FREE 100MG/10ML UDC PO SCH (08:22)
[2021-03-20] MEDS: AMLODIPINE 10MG TABLET PO SCH (08:22)
[2021-03-20] MEDS: CLONIDINE HCL 0.3MG/24HR PATCH TD SCH (08:22)
[2021-03-20] MEDS: BRIMONIDINE 0.2% OPHTH DROPS 5ML EACHEYE SCH ×2 (08:23→17:12)
[2021-03-20] MEDS: BACLOFEN 10MG TABLET PO SCH ×2 (08:23→17:12)
[2021-03-20] MEDS: CARVEDILOL 12.5MG TABLET PO SCH ×2 (08:23→20:41)
[2021-03-20] MEDS: DORZOLAMIDE 2% OPHTH 10 ML BOTTLE EACHEYE SCH ×2 (08:23→20:43)
[2021-03-20 12:00] VITALS: BP 115/45
[2021-03-20 16:30] VITALS: BP 91/50
[2021-03-20 20:00] VITALS: BP 123/43
[2021-03-20] MEDS: ATORVASTATIN CALCIUM 20MG TABLET PO SCH (20:41)
[2021-03-20] MEDS: FAMOTIDINE 20MG TABLET PO SCH (20:41)
[2021-03-20] MEDS: LATANOPROST 0.005% OPHTH DROPS 2.5ML EACHEYE SCH (20:44)
[2021-03-20] MEDS: IPRATROPIUM/ALBUTEROL 0.5-3(2.5)MG/3ML NEB HHN SCH (21:02)
[2021-03-21] VITALS: BP 121/64
[2021-03-21] MEDS: IPRATROPIUM/ALBUTEROL 0.5-3(2.5)MG/3ML NEB HHN SCH ×4 (00:56→20:45)
[2021-03-21 04:00] VITALS: BP 149/89
[2021-03-21] MEDS: NITROGLYCERIN OINT 1GM/INCH UDPKT TD SCH ×2 (05:39→14:00)
[2021-03-21] MEDS: SEVELAMER CARBONATE 800 MG TABLET PO SCH ×3 (05:39→17:10)
[2021-03-21] MEDS: HYDRALAZINE HCL 100MG TABLET PO SCH ×3 (05:39→22:00)
[2021-03-21] MEDS: FERROUS SULFATE 300MG/5ML UDC PO SCH ×2 (05:39→17:12)
[2021-03-21] MEDS: INSULIN LISPRO 100 UNITS/ML SUBCUT SCH ×4 (05:47→21:00)
[2021-03-21] MEDS: BLOOD SUGAR DIAGNOSTIC STRIP TEST SCH ×4 (05:47→21:00)
[2021-03-21 06:18] LABS: BASOPHILS % 0.7 % (0.0-2.0); EOSINOPHILS % 3.1 % (0.0-5.0); HEMATOCRIT. 25.3 % (36.0-48.0); HEMOGLOBIN. 7.7 g/dL (12.0-16.0); LYMPHOCYTES % 22.9 % (20.0-50.0); MEAN CORPUSCULAR HEMOGLOBIN 31.4 pg (28.0-32.0); MEAN PLATELET VOLUME 7.6 fl (7.4-10.4); MONOCYTES % 13.1 % (2.0-8.0); NEUTROPHILS % 60.2 % (40.0-76.0); PLATELET 168 x1000/uL (130-400); RED BLOOD CELL COUNT 2.46 mill/uL (4.2-5.4); RED CELL DISTRIBUTION WIDTH 16.5 % (11.6-14.6)
[2021-03-21 08:00] VITALS: BP 141/59
[2021-03-21] MEDS: FOLIC ACID/VITAMIN B COMP W-C TABLET PO SCH ×2 (09:00→09:09)
[2021-03-21] MEDS: THIAMINE HCL 100MG TABLET PO SCH ×2 (09:00→09:10)
[2021-03-21] MEDS: BACLOFEN 10MG TABLET PO SCH (09:08)
[2021-03-21] MEDS: AMLODIPINE 10MG TABLET PO SCH (09:08)
[2021-03-21] MEDS: DORZOLAMIDE 2% OPHTH 10 ML BOTTLE EACHEYE SCH (09:08)
[2021-03-21] MEDS: LIDOCAINE 5% PATCH TOP SCH (09:08)
[2021-03-21] MEDS: DOCUSATE SODIUM SUGAR FREE 100MG/10ML UDC PO SCH (09:08)
[2021-03-21] MEDS: BRIMONIDINE 0.2% OPHTH DROPS 5ML EACHEYE SCH ×2 (09:08→17:12)
[2021-03-21] MEDS: CARVEDILOL 12.5MG TABLET PO SCH (09:09)
[2021-03-21 12:00] VITALS: BP_SYST 138; BP_SYST 153; BP_DIAS 56; BP_DIAS 57
[2021-03-21 16:00] VITALS: BP 138/57
[2021-03-21 20:00] VITALS: BP 164/70
[2021-03-22] VITALS (7 sets, daily range): BP systolic 123–149; BP diastolic 54–97
[2021-03-22] MEDS: LATANOPROST 0.005% OPHTH DROPS 2.5ML EACHEYE SCH ×2 (00:05→21:50)
[2021-03-22] MEDS: EPOETIN ALFA-EPBX 10,000 UNIT/ML VIAL SUBCUT SCH (00:06)
[2021-03-22] MEDS: ATORVASTATIN CALCIUM 20MG TABLET PO SCH ×2 (00:06→21:49)
[2021-03-22] MEDS: DORZOLAMIDE 2% OPHTH 10 ML BOTTLE EACHEYE SCH ×3 (00:06→22:09)
[2021-03-22] MEDS: FAMOTIDINE 20MG TABLET PO SCH ×2 (00:07→21:49)
[2021-03-22] MEDS: NITROGLYCERIN OINT 1GM/INCH UDPKT TD SCH ×4 (00:07→21:54)
[2021-03-22] MEDS: CARVEDILOL 12.5MG TABLET PO SCH ×3 (00:07→21:50)
[2021-03-22] MEDS: IPRATROPIUM/ALBUTEROL 0.5-3(2.5)MG/3ML NEB HHN SCH ×3 (01:53→21:45)
[2021-03-22] MEDS: BLOOD SUGAR DIAGNOSTIC STRIP TEST SCH ×4 (06:31→21:42)
[2021-03-22] MEDS: INSULIN LISPRO 100 UNITS/ML SUBCUT SCH ×4 (06:32→21:00)
[2021-03-22] MEDS: HYDRALAZINE HCL 100MG TABLET PO SCH ×3 (06:32→21:51)
[2021-03-22] MEDS: FOLIC ACID/VITAMIN B COMP W-C TABLET PO SCH (09:31)
[2021-03-22] MEDS: FERROUS SULFATE 300MG/5ML UDC PO SCH ×2 (09:31→16:53)
[2021-03-22] MEDS: DOCUSATE SODIUM SUGAR FREE 100MG/10ML UDC PO SCH (09:31)
[2021-03-22] MEDS: SEVELAMER CARBONATE 800 MG TABLET PO SCH ×3 (09:31→16:53)
[2021-03-22] MEDS: THIAMINE HCL 100MG TABLET PO SCH (09:33)
[2021-03-22] MEDS: AMLODIPINE 10MG TABLET PO SCH (09:33)
[2021-03-22] MEDS: BRIMONIDINE 0.2% OPHTH DROPS 5ML EACHEYE SCH ×2 (09:36→17:30)
[2021-03-22] MEDS: LIDOCAINE 5% PATCH TOP SCH (09:37)
[2021-03-22] MEDS ORDERED: GUAIFENESIN-DM 200MG-20MG/10ML UDC PO PRN (15:45)
[2021-03-22] MEDS: ACETAMINOPHEN 325MG TABLET PO PRN (16:42)
[2021-03-23] VITALS: BP 135/68
[2021-03-23] MEDS: IPRATROPIUM/ALBUTEROL 0.5-3(2.5)MG/3ML NEB HHN SCH ×3 (01:42→21:26)
[2021-03-23 04:00] VITALS: BP 158/66
[2021-03-23] MEDS: NITROGLYCERIN OINT 1GM/INCH UDPKT TD SCH ×3 (06:00→22:00)
[2021-03-23] MEDS: HYDRALAZINE HCL 100MG TABLET PO SCH ×3 (06:00→22:00)
[2021-03-23] MEDS: BLOOD SUGAR DIAGNOSTIC STRIP TEST SCH ×4 (06:00→21:00)
[2021-03-23] MEDS: ACETAMINOPHEN 325MG TABLET PO PRN (06:01)
[2021-03-23] MEDS: INSULIN LISPRO 100 UNITS/ML SUBCUT SCH ×4 (06:12→21:00)
[2021-03-23 06:44] LABS: BASOPHILS % 0.7 % (0.0-2.0); EOSINOPHILS % 2.6 % (0.0-5.0); HEMATOCRIT. 23.4 % (36.0-48.0); HEMOGLOBIN. 7.4 g/dL (12.0-16.0); LYMPHOCYTES % 24.1 % (20.0-50.0); MEAN CORPUSCULAR HEMOGLOBIN 31.6 pg (28.0-32.0); MEAN CORPUSCULAR VOLUME 99.7 fL (81.0-99.0); MEAN PLATELET VOLUME 7.4 fl (7.4-10.4); MONOCYTES % 12.8 % (2.0-8.0); NEUTROPHILS % 59.8 % (40.0-76.0); PLATELET 201 x1000/uL (130-400); RED BLOOD CELL COUNT 2.35 mill/uL (4.2-5.4); RED CELL DISTRIBUTION WIDTH 16.1 % (11.6-14.6)
[2021-03-23 08:00] VITALS: BP 142/60
[2021-03-23] MEDS: FERROUS SULFATE 300MG/5ML UDC PO SCH ×2 (08:10→17:22)
[2021-03-23] MEDS: SEVELAMER CARBONATE 800 MG TABLET PO SCH ×3 (08:10→17:22)
[2021-03-23] MEDS: DOCUSATE SODIUM SUGAR FREE 100MG/10ML UDC PO SCH (08:46)
[2021-03-23] MEDS: CARVEDILOL 12.5MG TABLET PO SCH ×2 (08:46→22:00)
[2021-03-23] MEDS: THIAMINE HCL 100MG TABLET PO SCH (08:46)
[2021-03-23] MEDS: FOLIC ACID/VITAMIN B COMP W-C TABLET PO SCH (08:48)
[2021-03-23] MEDS: AMLODIPINE 10MG TABLET PO SCH (08:48)
[2021-03-23] MEDS: DORZOLAMIDE 2% OPHTH 10 ML BOTTLE EACHEYE SCH ×2 (08:49→22:18)
[2021-03-23] MEDS: LIDOCAINE 5% PATCH TOP SCH (08:50)
[2021-03-23] MEDS: BRIMONIDINE 0.2% OPHTH DROPS 5ML EACHEYE SCH ×2 (09:00→17:22)
[2021-03-23 12:00] VITALS: BP 126/62
[2021-03-23] MEDS: MEROPENEM 500 MG in SODIUM CHLORIDE 0.9% 50 ML IV SCH (13:07)
[2021-03-23] MEDS: SODIUM CHLORIDE 0.45% 1,000 ML IV SCH (13:07)
[2021-03-23] MEDS ORDERED: VANCOMYCIN 1 G PREMIX 200 ML IV NR (14:00)
[2021-03-23 20:00] VITALS: BP 127/87
[2021-03-23] MEDS: FAMOTIDINE 20MG TABLET PO SCH (22:00)
[2021-03-23] MEDS: ATORVASTATIN CALCIUM 20MG TABLET PO SCH (22:00)
[2021-03-23] MEDS: LATANOPROST 0.005% OPHTH DROPS 2.5ML EACHEYE SCH (22:17)
[2021-03-24] VITALS: BP 168/61
[2021-03-24] MEDS: IPRATROPIUM/ALBUTEROL 0.5-3(2.5)MG/3ML NEB HHN SCH ×2 (02:20→21:55)
[2021-03-24] MEDS: EPOETIN ALFA-EPBX 10,000 UNIT/ML VIAL SUBCUT SCH (02:54)
[2021-03-24] MEDS: CLONIDINE 0.1MG TABLET PO PRN (02:54)
[2021-03-24 04:00] VITALS: BP 162/64
[2021-03-24] MEDS: HYDRALAZINE HCL 100MG TABLET PO SCH ×3 (05:49→22:00)
[2021-03-24] MEDS: FERROUS SULFATE 300MG/5ML UDC PO SCH ×2 (06:18→17:33)
[2021-03-24] MEDS: BLOOD SUGAR DIAGNOSTIC STRIP TEST SCH ×4 (06:18→20:55)
[2021-03-24] MEDS: SEVELAMER CARBONATE 800 MG TABLET PO SCH ×3 (06:18→17:33)
[2021-03-24] MEDS: NITROGLYCERIN OINT 1GM/INCH UDPKT TD SCH ×3 (06:23→22:00)
[2021-03-24] MEDS: INSULIN LISPRO 100 UNITS/ML SUBCUT SCH ×4 (06:24→20:55)
[2021-03-24 08:00] VITALS: BP 157/81
[2021-03-24] MEDS: FOLIC ACID/VITAMIN B COMP W-C TABLET PO SCH (10:07)
[2021-03-24] MEDS: AMLODIPINE 10MG TABLET PO SCH (10:07)
[2021-03-24] MEDS: DOCUSATE SODIUM SUGAR FREE 100MG/10ML UDC PO SCH (10:08)
[2021-03-24] MEDS: CARVEDILOL 12.5MG TABLET PO SCH ×2 (10:08→21:04)
[2021-03-24] MEDS: THIAMINE HCL 100MG TABLET PO SCH (10:08)
[2021-03-24] MEDS: BRIMONIDINE 0.2% OPHTH DROPS 5ML EACHEYE SCH ×2 (10:08→17:33)
[2021-03-24] MEDS: LIDOCAINE 5% PATCH TOP SCH (10:10)
[2021-03-24] MEDS: DORZOLAMIDE 2% OPHTH 10 ML BOTTLE EACHEYE SCH ×2 (10:10→21:03)
[2021-03-24] MEDS: SODIUM CHLORIDE 0.45% 1,000 ML IV SCH (10:11)
[2021-03-24 12:00] VITALS: BP 131/34
[2021-03-24] MEDS: MEROPENEM 500 MG in SODIUM CHLORIDE 0.9% 50 ML IV SCH (12:38)
[2021-03-24] MEDS ORDERED: VANCOMYCIN 750 MG PREMIX 150 ML IV NR (13:00)
[2021-03-24 16:00] VITALS: BP 143/46
[2021-03-24 20:00] VITALS: BP 112/51
[2021-03-24] MEDS: LATANOPROST 0.005% OPHTH DROPS 2.5ML EACHEYE SCH (21:03)
[2021-03-24] MEDS: ATORVASTATIN CALCIUM 20MG TABLET PO SCH (21:04)
[2021-03-24] MEDS: FAMOTIDINE 20MG TABLET PO SCH (21:04)
[2021-03-25] VITALS: BP 147/45
[2021-03-25] MEDS: IPRATROPIUM/ALBUTEROL 0.5-3(2.5)MG/3ML NEB HHN SCH ×3 (01:38→13:21)
[2021-03-25 04:00] VITALS: BP 136/53
[2021-03-25] MEDS: HYDRALAZINE HCL 100MG TABLET PO SCH ×2 (06:00→16:10)
[2021-03-25] MEDS: BLOOD SUGAR DIAGNOSTIC STRIP TEST SCH ×3 (06:09→16:10)
[2021-03-25] MEDS: SODIUM CHLORIDE 0.45% 1,000 ML IV SCH (06:11)
[2021-03-25] MEDS: NITROGLYCERIN OINT 1GM/INCH UDPKT TD SCH ×2 (06:12→16:10)
[2021-03-25] MEDS: INSULIN LISPRO 100 UNITS/ML SUBCUT SCH ×3 (06:13→16:22)
[2021-03-25] MEDS: FERROUS SULFATE 300MG/5ML UDC PO SCH ×2 (06:29→16:13)
[2021-03-25] MEDS: SEVELAMER CARBONATE 800 MG TABLET PO SCH ×3 (06:29→16:14)
[2021-03-25 08:00] VITALS: BP 190/62
[2021-03-25] MEDS: DOCUSATE SODIUM SUGAR FREE 100MG/10ML UDC PO SCH (09:23)
[2021-03-25] MEDS: DORZOLAMIDE 2% OPHTH 10 ML BOTTLE EACHEYE SCH (09:23)
[2021-03-25] MEDS: AMLODIPINE 10MG TABLET PO SCH (09:23)
[2021-03-25] MEDS: BRIMONIDINE 0.2% OPHTH DROPS 5ML EACHEYE SCH ×2 (09:23→16:13)
[2021-03-25] MEDS: CARVEDILOL 12.5MG TABLET PO SCH (09:24)
[2021-03-25] MEDS: THIAMINE HCL 100MG TABLET PO SCH (09:24)
[2021-03-25] MEDS: FOLIC ACID/VITAMIN B COMP W-C TABLET PO SCH (09:24)
[2021-03-25] MEDS: CLONIDINE 0.1MG TABLET PO PRN (09:24)
[2021-03-25] MEDS: LIDOCAINE 5% PATCH TOP SCH (09:25)
[2021-03-25] MEDS: MEROPENEM 500 MG in SODIUM CHLORIDE 0.9% 50 ML IV SCH (12:21)
[2021-03-25 14:59] VITALS: BP 145/54
== END 2021-03-25 21:17 | disposition hospice, inpatient (51) | DRG 91 ==
LOC: 7EST 20:43
PROVIDERS: ADMIT Internal Medicine; ATTEND Internal Medicine
PROC: 5A1D70Z Performance of Urinary Filtration, Intermittent, Less than 6 Hours Per Day (ICD-10-PCS; 2021-03-13)
PROC: 5A1D70Z Performance of Urinary Filtration, Intermittent, Less than 6 Hours Per Day (ICD-10-PCS; 2021-03-15)
PROC: 5A1D70Z Performance of Urinary Filtration, Intermittent, Less than 6 Hours Per Day (ICD-10-PCS; 2021-03-17)
PROC: 4A10X4Z Monitoring of Central Nervous Electrical Activity, External Approach (ICD-10-PCS; principal; 2021-03-19)
PROC: 5A1D70Z Performance of Urinary Filtration, Intermittent, Less than 6 Hours Per Day (ICD-10-PCS; 2021-03-19)
PROC: 5A1D70Z Performance of Urinary Filtration, Intermittent, Less than 6 Hours Per Day (ICD-10-PCS; 2021-03-21)
PROC: 5A1D70Z Performance of Urinary Filtration, Intermittent, Less than 6 Hours Per Day (ICD-10-PCS; 2021-03-23)
DX: G92 Toxic encephalopathy (principal); A41.9 Sepsis, unspecified organism; G82.50 Quadriplegia, unspecified; N18.6 End stage renal disease; J18.9 Pneumonia, unspecified organism; I13.2 Hypertensive heart and chronic kidney disease with heart failure and with stage 5 chronic kidney disease, or end stage renal disease; I50.32 Chronic diastolic (congestive) heart failure; N39.0 Urinary tract infection, site not specified; R47.01 Aphasia; Z51.5 Encounter for palliative care; Z99.2 Dependence on renal dialysis; Z66 Do not resuscitate; R56.9 Unspecified convulsions; D63.1 Anemia in chronic kidney disease; E11.22 Type 2 diabetes mellitus with diabetic chronic kidney disease; E78.00 Pure hypercholesterolemia, unspecified; T38.0X5A Adverse effect of glucocorticoids and synthetic analogues, initial encounter; F09 Unspecified mental disorder due to known physiological condition; I25.10 Atherosclerotic heart disease of native coronary artery without angina pectoris; S30.0XXA Contusion of lower back and pelvis, initial encounter; Z53.20 Procedure and treatment not carried out because of patient's decision for unspecified reasons; Z96.653 Presence of artificial knee joint, bilateral; M19.90 Unspecified osteoarthritis, unspecified site; E11.21 Type 2 diabetes mellitus with diabetic nephropathy; S39.92XA Unspecified injury of lower back, initial encounter; R29.6 Repeated falls; G89.29 Other chronic pain; F32.9 Major depressive disorder, single episode, unspecified; F41.9 Anxiety disorder, unspecified; R26.9 Unspecified abnormalities of gait and mobility; X58.XXXA Exposure to other specified factors, initial encounter; R53.81 Other malaise; R62.7 Adult failure to thrive; I27.20 Pulmonary hypertension, unspecified; Z88.8 Allergy status to other drugs, medicaments and biological substances; Z79.899 Other long term (current) drug therapy; Z79.4 Long term (current) use of insulin; Z90.49 Acquired absence of other specified parts of digestive tract; Y93.89 Activity, other specified; Y92.89 Other specified places as the place of occurrence of the external cause; Y99.8 Other external cause status; Z74.01 Bed confinement status; Z98.1 Arthrodesis status; Z68.24 Body mass index [BMI] 24.0-24.9, adult; Z98.890 Other specified postprocedural states
CPT/HCPCS: 36415; 70551; 71045; 72141; 80048; 80076; 80202; 82040; 82140; 82962; 83036; 83540; 83550; 83735; 84100; 84134; 84145; 84439; 84443; 84481; 85018; 85025; 85651; 86705; 86709; 86803; 87340; 93970; 94640; 95816; 97110; 97162; C1893; J0885; J1200; J1815; J2185; J3370; J7042; L0172

== ENCOUNTER 2023-04-04 17:30 | Emergency (ER) | payer MEDICARE, BC ==
[~2023-04-04] VITALS: Ht 172.7 cm; Wt 59.0 kg
[~2023-04-04 17:30] MED LIST changes: -CITA40TA11 MT; +CITA40TA69 MT
[2023-04-04 18:00] VITALS: BP 153/73; TEMP 97.9; O2SAT 99
[2023-04-04 18:07] VITALS: PULSE 81; RESP 20
== END 2023-04-04 19:19 | disposition home or self-care (01) ==
LOC: ER 17:30
DX: S80.02XA Contusion of left knee, initial encounter (principal); E11.22 Type 2 diabetes mellitus with diabetic chronic kidney disease; I12.0 Hypertensive chronic kidney disease with stage 5 chronic kidney disease or end stage renal disease; N18.6 End stage renal disease; Z88.5 Allergy status to narcotic agent; Z88.0 Allergy status to penicillin; Z79.899 Other long term (current) drug therapy; W18.30XA Fall on same level, unspecified, initial encounter; Y93.89 Activity, other specified; Y92.89 Other specified places as the place of occurrence of the external cause; Y99.8 Other external cause status
CPT/HCPCS: 73560; 99283

== ENCOUNTER 2024-05-30 19:27 | Inpatient (IN) | payer MEDICARE, BC ==
[~2024-05-30] VITALS: Ht 182.9 cm; Wt 68.5 kg
[~2024-05-30 19:27] MED LIST changes: +GABA-1180 MT; -GABA-532 MT; -HYDR-4134 MT; +HYDR25TA78 MT; +NEBI10TA10 PO; -NEBI10TA2 PO
[2024-05-30] MEDS ORDERED: ZOLPIDEM TARTRATE 5MG TABLET PO PRN (22:30)
[2024-05-30] MEDS: GUAIFENESIN/DM 600MG/30MG ER TAB 12HR PO SCH (22:30)
[2024-05-30] MEDS ORDERED: NITROGLYCERIN 0.4MG TABLET SL SL PRN (22:30)
[2024-05-30 23:15] LABS: BASOPHILS % 1.9 % (0.0-2.0); EOSINOPHILS % 0.9 % (0.0-5.0); HEMATOCRIT. 21.6 % (36.0-48.0); LYMPHOCYTES % 21.8 % (20.0-50.0); MEAN CORPUSCULAR HGB CONC 30.1 g/dL (31.0-37.0); MEAN CORPUSCULAR VOLUME 116.3 fL (81.0-99.0); MONOCYTES % 10.1 % (2.0-8.0); NEUTROPHILS % 65.3 % (40.0-76.0); PLATELET 98 x1000/uL (130-400); RED BLOOD CELL COUNT 1.86 mill/uL (4.2-5.4); WHITE BLOOD COUNT 2.5 x1000/uL (4.5-11.0)
[2024-05-30 23:22] LABS: CHLORIDE 115 mEq/L (98-107); POTASSIUM 4.3 mEq/L (3.5-5.1); SODIUM 145 mEq/L (136-145)
[2024-05-30 23:23] LABS: CARBON DIOXIDE 22 mEq/L (21-32)
[2024-05-30 23:24] LABS: CALCIUM 9.2 mg/dL (8.7-10.4)
[2024-05-30 23:28] LABS: CREATININE 4.9 mg/dL (0.6-1.0); GLUCOSE 166 mg/dL (70-105)
[2024-05-30 23:29] LABS: IRON 108 ug/dL (50-170); UREA NITROGEN BLOOD 39 mg/dL (9-23)
[2024-05-30 23:30] LABS: LDL CHOLESTEROL 66 mg/dL (5-100); TRIGLYCERIDE 110 mg/dL (0-150); TROPONIN I HIGH SENSITIVITY 29 ng/L (3.0-34)
[2024-05-30 23:31] LABS: ALANINE AMINOTRANSFERASE 56 IU/L (10-49); ALBUMIN 3.3 g/dL (3.2-4.8); ASPARTATE AMINOTRANSFERASE 89 IU/L (<34); BILIRUBIN TOTAL 0.2 mg/dL (0.1-1.0); CHOLESTEROL 154 mg/dL (<200); HDL CHOLESTEROL 59 mg/dL (>65); PROTEIN TOTAL 5.7 g/dL (6.0-8.3)
[2024-05-30 23:32] LABS: TOTAL IRON BINDING CAPACITY 219 ug/dl (250-425)
[2024-05-30 23:34] LABS: T4 FREE 1.45 ng/dL (0.89-1.76); THYROID STIMULATING HORMONE < 0.10 uIU/mL (0.55-4.78)
[2024-05-30 23:35] LABS: ADD RBC MORPHOLOGY YES; DIFFERENTIAL COMMENT 1; HEMOGLOBIN. 6.5 g/dL (12.0-16.0)
[2024-05-30] MEDS: SODIUM CHLORIDE 0.9% (SEPSIS BOLUS) IV ONE (23:36)
[2024-05-30 23:37] LABS: VITAMIN B12 SERUM 1624 pg/mL (211-911)
[2024-05-30 23:38] LABS: FOLIC ACID (FOLATE) SERUM > 20.00 ng/mL (>5.38)
[2024-05-30] MEDS: CEFTRIAXONE 1GM/50ML 50 ML IV ONE (23:43)
[2024-05-30 23:50] LABS: BILIRUBIN DIRECT < 0.1 mg/dL (<=3.0)
[2024-05-31] VITALS (29 sets, daily range): BP systolic 96–160; BP diastolic 52–92; PULSE 70–97; RESP 16–25; TEMP 36.89184–37.1408; O2SAT 93–98
[2024-05-31 00:02] LABS: PARTIAL THROMBOPLASTIN TIME 33.6 sec (23.4-31.0)
[2024-05-31 03:37] LABS: PLATELET ESTIMATE DECREASED
[2024-05-31 04:36] LABS: CHLORIDE 116 mEq/L (98-107); POTASSIUM 4.5 mEq/L (3.5-5.1); SODIUM 145 mEq/L (136-145)
[2024-05-31 04:37] LABS: CARBON DIOXIDE 22 mEq/L (21-32)
[2024-05-31 04:42] LABS: CREATININE 4.7 mg/dL (0.6-1.0); GLUCOSE 148 mg/dL (70-105); UREA NITROGEN BLOOD 39 mg/dL (9-23)
[2024-05-31 04:44] LABS: ALANINE AMINOTRANSFERASE 60 IU/L (10-49); ALBUMIN 3.3 g/dL (3.2-4.8); ASPARTATE AMINOTRANSFERASE 112 IU/L (<34); BILIRUBIN TOTAL 0.2 mg/dL (0.1-1.0); PHOSPHORUS 3.7 mg/dL (2.5-4.9); PROTEIN TOTAL 5.4 g/dL (6.0-8.3)
[2024-05-31 07:01] LABS: BASOPHILS % 0.7 % (0.0-2.0); EOSINOPHILS % 0.5 % (0.0-5.0); HEMATOCRIT. 32.4 % (36.0-48.0); LYMPHOCYTES % 11.9 % (20.0-50.0); MEAN CORPUSCULAR HEMOGLOBIN 34.4 pg (28.0-32.0); MEAN CORPUSCULAR VOLUME 107.4 fL (81.0-99.0); MEAN PLATELET VOLUME 8.3 fl (7.4-10.4); MONOCYTES % 9.4 % (2.0-8.0); NEUTROPHILS % 77.5 % (40.0-76.0); PLATELET 65 x1000/uL (130-400); RED BLOOD CELL COUNT 3.02 mill/uL (4.2-5.4); RED CELL DISTRIBUTION WIDTH 23.1 % (11.6-14.6); WHITE BLOOD COUNT 3.8 x1000/uL (4.5-11.0)
[2024-05-31 07:11] LABS: DIFFERENTIAL COMMENT 1
[2024-05-31 07:12] LABS: HEMOGLOBIN. 10.4 g/dL (12.0-16.0)
[2024-05-31] MEDS: INSULIN LISPRO 100 UNITS/ML SUBCUT SCH (08:20)
[2024-05-31] MEDS ORDERED: IPRATROPIUM/ALBUTEROL 0.5-3(2.5)MG/3ML NEB NEB PRN (08:30)
[2024-05-31] MEDS ORDERED: DOCUSATE SODIUM 100MG CAPSULE PO PRN (08:30)
[2024-05-31] MEDS ORDERED: ACETAMINOPHEN 325MG TABLET PO PRN ×2 (08:30)
[2024-05-31] MEDS ORDERED: DEXTROSE 50% WATER 50ML SYRINGE IV PRN (08:30)
[2024-05-31] MEDS ORDERED: ENOXAPARIN 40MG/0.4ML SYR SUBCUT SCH (08:30)
[2024-05-31] MEDS ORDERED: GUAIFENESIN 200MG/10ML SUGAR FREE UDC PO PRN (08:30)
[2024-05-31] MEDS ORDERED: ONDANSETRON HCL 4MG/2ML INJ IV PRN (08:30)
[2024-05-31] MEDS ORDERED: FAMOTIDINE 20MG TABLET PO SCH (09:00)
[2024-05-31] MEDS: MEROPENEM 1,000 MG in SODIUM CHLORIDE 0.9% 100 ML IV SCH (09:46)
[2024-05-31] MEDS: BLOOD SUGAR DIAGNOSTIC STRIP TEST SCH (09:46)
[2024-05-31] MEDS: VANCOMYCIN 1.25GM PMX (XELLIA) 250 ML IV NR (10:03)
[2024-05-31] MEDS: ASCORBIC ACID 500 MG TABLET PO SCH (10:45)
[2024-05-31] MEDS: ZINC SULFATE 220 MG ( 50 ) CAPSULE PO SCH (10:46)
[2024-05-31] MEDS: MIDODRINE HCL 2.5MG TABLET PO SCH (10:46)
[2024-05-31] MEDS: FAMOTIDINE 20MG TABLET PO SCH (10:46)
[2024-05-31] MEDS: FOLIC ACID/VITAMIN B COMP W-C TABLET PO SCH (10:46)
[2024-05-31] MEDS: SEVELAMER CARBONATE 800 MG TABLET PO SCH (10:46)
[2024-05-31] MEDS: ASPIRIN 81MG EC TABLET PO SCH (10:47)
[2024-05-31] MEDS: LACTATED RINGERS 500 ML IV SCH ×2 (10:47→10:48)
[2024-05-31] MEDS: DEXT 5%/LACTATED RINGERS 500 ML IV ONE (11:52)
[2024-05-31 17:00] LABS: CREATINE KINASE MB FRACTION 8.6 ng/mL (0.5-3.6)
[2024-05-31 23:36] LABS: CREATINE KINASE MB FRACTION 6.6 ng/mL (0.5-3.6)
[2024-05-31 23:55] LABS: HEPATITIS B SURFACE ANTIGEN NEGATIVE (Negative)
[2024-06-01] VITALS (71 sets, daily range): BP systolic 81–160; BP diastolic 48–126; PULSE 70–98; RESP 11–25; TEMP 36.16956–37.2252; O2SAT 94–100
[2024-06-01 00:15] LABS: HEPATITIS A AB IGM NEGATIVE (Negative)
[2024-06-01 00:16] LABS: HEPATITIS B CORE AB IGM NEGATIVE (Negative)
[2024-06-01 00:17] LABS: HEPATITIS C AB NON REACTIVE (Neg) (Negative)
[2024-06-01 05:55] LABS: CARBON DIOXIDE 15 mEq/L (21-32); CHLORIDE 117 mEq/L (98-107); POTASSIUM 4.4 mEq/L (3.5-5.1); SODIUM 144 mEq/L (136-145)
[2024-06-01 05:56] LABS: CALCIUM 9.5 mg/dL (8.7-10.4)
[2024-06-01 06:01] LABS: GLUCOSE 87 mg/dL (70-105)
[2024-06-01 06:02] LABS: UREA NITROGEN BLOOD 34 mg/dL (9-23)
[2024-06-01 06:04] LABS: PHOSPHORUS 3.8 mg/dL (2.5-4.9)
[2024-06-01 07:42] LABS: CREATININE 5.3 mg/dL (0.6-1.0)
[2024-06-01 10:34] LABS: HEMATOCRIT. 35.1 % (36.0-48.0); HEMOGLOBIN. 11.4 g/dL (12.0-16.0); MEAN CORPUSCULAR HEMOGLOBIN 34.9 pg (28.0-32.0); MEAN CORPUSCULAR HGB CONC 32.4 g/dL (31.0-37.0); MEAN CORPUSCULAR VOLUME 107.7 fL (81.0-99.0); MEAN PLATELET VOLUME 8.8 fl (7.4-10.4); PLATELET 90 x1000/uL (130-400); RED BLOOD CELL COUNT 3.26 mill/uL (4.2-5.4)
[2024-06-01 10:35] LABS: DIFFERENTIAL COMMENT 1
[2024-06-01] MEDS ORDERED: LACTATED RINGERS 500 ML IV SCH (11:00)
[2024-06-01] MEDS ORDERED: LIDOCAINE HCL 1% 10 MG/ML 10ML VIAL ONE (11:20)
[2024-06-01] MEDS: DEXT 5%/LACTATED RINGERS 1,000 ML IV SCH (14:51)
[2024-06-01] MEDS: NOREPINEPHRINE 8MG/250ML PMX 250 ML IV PRN (14:52)
[2024-06-01 16:03] LABS: ANISOCYTOSIS 3+; PLATELET ESTIMATE DECREASED
[2024-06-01] MEDS ORDERED: SODIUM CHLORIDE 3% FOR INH 15ML NEB INH SCH (18:00)
[2024-06-01] MEDS: IPRATROPIUM/ALBUTEROL 0.5-3(2.5)MG/3ML NEB HHN SCH (20:35)
[2024-06-01] MEDS: ACETYLCYSTEINE 200MG/ML 20% VIAL 4ML INH SCH (20:36)
[2024-06-02] VITALS (71 sets, daily range): BP systolic 80–157; BP diastolic 53–119; PULSE 57–80; RESP 9–25; TEMP 36.00288–36.89184; O2SAT 91–100
[2024-06-02] MEDS: PANTOT AC/MIN OIL/PET HY-PHL OINT (AQUAPHOR) TOP SCH (17:00)
[2024-06-03] VITALS (11 sets, daily range): BP systolic 99–155; BP diastolic 61–76; PULSE 43–68; RESP 17–20; TEMP 35.89176–36.55848; O2SAT 96–100
[2024-06-03] MEDS ORDERED: MEROPENEM 1,000 MG in SODIUM CHLORIDE 0.9% 100 ML IV SCH (10:45)
[2024-06-03] MEDS: MEROPENEM 1,000 MG in SODIUM CHLORIDE 0.9% 100 ML IV SCH (13:49)
[2024-06-03] MEDS: VANCOMYCIN 1.25GM PMX (XELLIA) 250 ML IV SCH (14:59)
[2024-06-04] VITALS (9 sets, daily range): BP systolic 126–150; BP diastolic 65–98; PULSE 52–78; RESP 16–19; TEMP 35.72508–36.9474; O2SAT 93–100
[2024-06-04] MEDS: SODIUM CHLORIDE 3% FOR INH 4ML NEB INH SCH (08:54)
[2024-06-04] MEDS ORDERED: ALTEPLASE 2MG/VIAL ITC NR (10:15)
[2024-06-04 22:07] LABS: CALCIUM 9.5 mg/dL (8.7-10.4)
[2024-06-04 22:10] LABS: HEMATOCRIT. 39.6 % (36.0-48.0); HEMOGLOBIN. 12.3 g/dL (12.0-16.0); MEAN CORPUSCULAR HEMOGLOBIN 34.1 pg (28.0-32.0); MEAN PLATELET VOLUME 9.3 fl (7.4-10.4); PLATELET 77 x1000/uL (130-400); RED CELL DISTRIBUTION WIDTH 22.5 % (11.6-14.6); WHITE BLOOD COUNT 4.6 x1000/uL (4.5-11.0)
[2024-06-04 22:18] LABS: CREATININE 5.6 mg/dL (0.6-1.0)
[2024-06-04 22:34] LABS: DIFFERENTIAL COMMENT 1
[2024-06-04 23:39] LABS: ANISOCYTOSIS 3+; PLATELET ESTIMATE DECREASED
[2024-06-05] VITALS (15 sets, daily range): BP systolic 104–151; BP diastolic 57–110; PULSE 51–87; RESP 14–19; TEMP 36.05844–36.6696; O2SAT 95–99
[2024-06-05] MEDS ORDERED: ALTEPLASE 2MG/VIAL ITC ONE (08:15)
[2024-06-05] MEDS: MEROPENEM 500MG/50ML IV SCH (17:15)
[2024-06-05] MEDS: ALTEPLASE 2MG/VIAL ITC NR (19:56)
[2024-06-06] VITALS (9 sets, daily range): BP systolic 116–175; BP diastolic 50–101; PULSE 74–99; RESP 15–20; TEMP 36.16956–36.72516; O2SAT 93–98
[2024-06-07] VITALS (13 sets, daily range): BP systolic 89–153; BP diastolic 48–90; PULSE 64–96; RESP 18–20; TEMP 32.2248–37.11408; O2SAT 93–100
[2024-06-07 06:26] LABS: CALCIUM 9.5 mg/dL (8.7-10.4); POTASSIUM 3.6 mEq/L (3.5-5.1)
[2024-06-07 07:11] LABS: CREATININE 5.9 mg/dL (0.6-1.0)
[2024-06-07 07:24] LABS: HEMATOCRIT. 38.3 % (36.0-48.0); MEAN CORPUSCULAR HEMOGLOBIN 33.3 pg (28.0-32.0); MEAN CORPUSCULAR HGB CONC 31.4 g/dL (31.0-37.0); MEAN CORPUSCULAR VOLUME 106.1 fL (81.0-99.0); MEAN PLATELET VOLUME 9.7 fl (7.4-10.4); PLATELET 81 x1000/uL (130-400); RED BLOOD CELL COUNT 3.61 mill/uL (4.2-5.4); RED CELL DISTRIBUTION WIDTH 21.2 % (11.6-14.6); WHITE BLOOD COUNT 6.6 x1000/uL (4.5-11.0)
[2024-06-07 07:42] LABS: DIFFERENTIAL COMMENT 1
[2024-06-07] MEDS: IPRATROPIUM/ALBUTEROL 0.5-3(2.5)MG/3ML NEB HHN PRN (13:22)
[2024-06-07 17:52] LABS: PLATELET ESTIMATE DECREASED
[2024-06-07 17:53] LABS: ANISOCYTOSIS 2+
[2024-06-08] VITALS (7 sets, daily range): BP systolic 100–169; BP diastolic 62–88; PULSE 75–90; RESP 18–22; TEMP 35.78064–36.55848; O2SAT 98–100
[2024-06-09] VITALS: BP 154/80; PULSE 82; RESP 18; TEMP 36.3918; O2SAT 99
[2024-06-09 04:00] VITALS: BP 171/74; PULSE 75; RESP 18; TEMP 36.16956; O2SAT 97
[2024-06-09 08:00] VITALS: BP 173/84; PULSE 77; RESP 20; TEMP 36.44736; O2SAT 99
[2024-06-09 12:00] VITALS: BP 125/73; PULSE 96; RESP 18; TEMP 36.3918; O2SAT 96
[2024-06-09 16:00] VITALS: BP 181/85; PULSE 67; RESP 18; TEMP 36.114; O2SAT 100
[2024-06-09 20:00] VITALS: BP 175/87; PULSE 68; RESP 16; TEMP 36.22512; O2SAT 96
[2024-06-10] VITALS: BP 181/76; PULSE 70; RESP 16; TEMP 36.28068; O2SAT 90
[2024-06-10 04:00] VITALS: BP 141/92; PULSE 73; RESP 16; TEMP 36.16956; O2SAT 91
[2024-06-10 08:00] VITALS: BP 160/70; PULSE 73; RESP 18; TEMP 36.50292; O2SAT 97
[2024-06-10 12:00] VITALS: BP 149/75; PULSE 66; RESP 18; TEMP 36.50292; O2SAT 98
[2024-06-10 16:00] VITALS: BP 110/77; PULSE 70; RESP 18; TEMP 36.50292; O2SAT 98
[2024-06-10 18:34] LABS: BASOPHILS % 0.6 % (0.0-2.0); DIFFERENTIAL COMMENT 0; HEMATOCRIT. 38.3 % (36.0-48.0); LYMPHOCYTES % 11.8 % (20.0-50.0); MEAN CORPUSCULAR HGB CONC 31.3 g/dL (31.0-37.0); MEAN CORPUSCULAR VOLUME 108.5 fL (81.0-99.0); MEAN PLATELET VOLUME 9.5 fl (7.4-10.4); MONOCYTES % 10.5 % (2.0-8.0); NEUTROPHILS % 76.1 % (40.0-76.0); PLATELET 159 x1000/uL (130-400); RED BLOOD CELL COUNT 3.52 mill/uL (4.2-5.4); RED CELL DISTRIBUTION WIDTH 20.7 % (11.6-14.6); WHITE BLOOD COUNT 7.6 x1000/uL (4.5-11.0)
[2024-06-10 18:40] LABS: POTASSIUM 4.1 mEq/L (3.5-5.1)
[2024-06-10 18:42] LABS: CALCIUM 9.3 mg/dL (8.7-10.4)
[2024-06-10 18:49] LABS: CREATININE 6.7 mg/dL (0.6-1.0)
[2024-06-10 20:00] VITALS: BP 137/94; PULSE 63; RESP 16; TEMP 36.33624; O2SAT 95
[2024-06-11] VITALS (9 sets, daily range): BP systolic 89–188; BP diastolic 49–104; PULSE 60–94; RESP 16–20; TEMP 36.44736–36.6696; O2SAT 94–100
[2024-06-12] VITALS: BP 92/52; PULSE 81; RESP 16; TEMP 36.44736; O2SAT 97
[2024-06-12 03:00] VITALS: BP 108/57; PULSE 89; RESP 18; TEMP 36.6696; O2SAT 98
[2024-06-12 08:00] VITALS: BP 120/67; PULSE 64; RESP 18; TEMP 36.72516; O2SAT 100
[2024-06-12 12:00] VITALS: BP 147/73; PULSE 69; RESP 18; TEMP 36.44736; O2SAT 100
[2024-06-12 16:00] VITALS: BP 112/51; PULSE 69; RESP 18; TEMP 36.33624; O2SAT 96
[2024-06-12 20:00] VITALS: BP_SYST 146; BP_SYST 202; BP_DIAS 78; BP_DIAS 88; PULSE 83; RESP 16; RESP 18; TEMP 36.114; TEMP 36.22512; O2SAT 100
[2024-06-13] VITALS: BP 172/94; PULSE 85; RESP 18; TEMP 36.16956; O2SAT 100
[2024-06-13 04:00] VITALS: BP 174/88; PULSE 71; RESP 16; TEMP 36.28068; O2SAT 100
[2024-06-13 08:00] VITALS: BP 174/82; PULSE 76; RESP 18; TEMP 36.44736; O2SAT 95
[2024-06-13] MEDS: CLONIDINE 0.1MG TABLET PO PRN (10:02)
[2024-06-13 12:00] VITALS: BP 176/92; PULSE 69; RESP 18; TEMP 36.44736; O2SAT 97
[2024-06-13] MEDS: NITROGLYCERIN OINT 1GM/INCH UDPKT TD SCH (13:38)
[2024-06-13 16:00] VITALS: BP 193/97; PULSE 65; RESP 18; TEMP 36.50292; O2SAT 100
[2024-06-13 20:00] VITALS: BP 128/80; PULSE 80; RESP 20; TEMP 36.78072; O2SAT 98
[2024-06-14] VITALS: BP 132/80; PULSE 82; RESP 20; TEMP 36.78072; O2SAT 98
[2024-06-14 04:00] VITALS: BP 129/66; PULSE 70; RESP 18; TEMP 36.89184; O2SAT 98
[2024-06-14 08:00] VITALS: BP 146/80; PULSE 73; RESP 20; TEMP 36.44736; O2SAT 98
[2024-06-14 12:00] VITALS: BP 144/74; PULSE 62; RESP 20; TEMP 36.28068; O2SAT 99
[2024-06-14 16:00] VITALS: BP 174/84; PULSE 63; RESP 20; TEMP 35.78064; O2SAT 100
[2024-06-14 20:00] VITALS: BP 139/80; PULSE 76; RESP 20; TEMP 36.6696; O2SAT 99
[2024-06-15] VITALS: BP 120/80; PULSE 77; RESP 20; TEMP 36.89184; O2SAT 97
[2024-06-15 08:00] VITALS: BP 148/81; PULSE 69; RESP 18; TEMP 35.5584; O2SAT 99
[2024-06-15 12:00] VITALS: BP 116/73; PULSE 56; RESP 20; TEMP 35.66952; O2SAT 97
[2024-06-15 16:00] VITALS: BP 173/93; PULSE 68; RESP 18; TEMP 36.114; O2SAT 99
[2024-06-15 20:00] VITALS: BP 131/89; PULSE 79; RESP 18; TEMP 37.00296; O2SAT 97
[2024-06-16] VITALS: BP 107/70; PULSE 82; RESP 18; TEMP 37.00296; O2SAT 97
[2024-06-16 04:00] VITALS: BP 100/77; PULSE 79; RESP 18; TEMP 36.89184; O2SAT 98
[2024-06-16 08:00] VITALS: BP 167/86; PULSE 97; RESP 18; TEMP 36.55848; O2SAT 98
[2024-06-16 12:00] VITALS: BP 125/76; PULSE 85; RESP 18; TEMP 36.50292; O2SAT 97
[2024-06-16 16:00] VITALS: BP 145/77; PULSE 84; RESP 18; TEMP 36.50292; O2SAT 100
[2024-06-16 20:00] VITALS: BP 137/94; PULSE 64; RESP 16; TEMP 36.22512; O2SAT 100
[2024-06-17] VITALS: BP 142/88; PULSE 51; RESP 16; TEMP 36.28068; O2SAT 93
[2024-06-17 04:00] VITALS: BP 179/81; PULSE 95; RESP 16; TEMP 36.28068; O2SAT 99
[2024-06-17 08:08] VITALS: BP 128/82; PULSE 96; RESP 20; TEMP 36.78072; O2SAT 99
[2024-06-17] MEDS ORDERED: LIDOCAINE HCL 1% 10 MG/ML 10ML VIAL ONE (10:46)
[2024-06-17 11:52] VITALS: BP 144/80; PULSE 86; TEMP 98.4; O2SAT 99
[2024-06-17 11:56] VITALS: BP 144/80; PULSE 86; RESP 20; TEMP 36.89184; O2SAT 99
== END 2024-06-17 12:33 | disposition hospice, home (50) | DRG 871 ==
LOC: ER 19:27 → MICUSO 05-31 00:46 → EDBEDREQSVC 05-31 11:20 → 8WST 06-02 18:44
PROVIDERS: ADMIT Internal Medicine; ATTEND Internal Medicine
PROC: 30233N1 Transfusion of Nonautologous Red Blood Cells into Peripheral Vein, Percutaneous Approach (ICD-10-PCS; 2024-05-31)
PROC: 05H533Z Insertion of Infusion Device into Right Subclavian Vein, Percutaneous Approach (ICD-10-PCS; principal; 2024-06-01)
PROC: B546ZZA Ultrasonography of Right Subclavian Vein, Guidance (ICD-10-PCS; 2024-06-01)
PROC: 5A1D70Z Performance of Urinary Filtration, Intermittent, Less than 6 Hours Per Day (ICD-10-PCS; 2024-06-01)
PROC: 5A1D70Z Performance of Urinary Filtration, Intermittent, Less than 6 Hours Per Day (ICD-10-PCS; 2024-06-03)
PROC: 5A1D70Z Performance of Urinary Filtration, Intermittent, Less than 6 Hours Per Day (ICD-10-PCS; 2024-06-05)
PROC: 5A1D70Z Performance of Urinary Filtration, Intermittent, Less than 6 Hours Per Day (ICD-10-PCS; 2024-06-07)
PROC: 5A1D70Z Performance of Urinary Filtration, Intermittent, Less than 6 Hours Per Day (ICD-10-PCS; 2024-06-11)
PROC: 0JPTXXZ Removal of Tunneled Vascular Access Device from Trunk Subcutaneous Tissue and Fascia, External Approach (ICD-10-PCS; 2024-06-17)
DX: A41.9 Sepsis, unspecified organism (principal); G92.8 Other toxic encephalopathy; R65.21 Severe sepsis with septic shock; N18.6 End stage renal disease; J96.01 Acute respiratory failure with hypoxia; I12.0 Hypertensive chronic kidney disease with stage 5 chronic kidney disease or end stage renal disease; J90 Pleural effusion, not elsewhere classified; E46 Unspecified protein-calorie malnutrition; E11.22 Type 2 diabetes mellitus with diabetic chronic kidney disease; D63.1 Anemia in chronic kidney disease; D70.9 Neutropenia, unspecified; Z53.20 Procedure and treatment not carried out because of patient's decision for unspecified reasons; Z66 Do not resuscitate; Z96.653 Presence of artificial knee joint, bilateral; N28.89 Other specified disorders of kidney and ureter; J39.8 Other specified diseases of upper respiratory tract; S30.0XXA Contusion of lower back and pelvis, initial encounter; X58.XXXA Exposure to other specified factors, initial encounter; F03.90 Unspecified dementia, unspecified severity, without behavioral disturbance, psychotic disturbance, mood disturbance, and anxiety; Z99.2 Dependence on renal dialysis; Z79.4 Long term (current) use of insulin; Z90.49 Acquired absence of other specified parts of digestive tract; Z79.82 Long term (current) use of aspirin; Z79.899 Other long term (current) drug therapy; Z88.5 Allergy status to narcotic agent; Z88.8 Allergy status to other drugs, medicaments and biological substances; Y93.89 Activity, other specified; Y92.89 Other specified places as the place of occurrence of the external cause; Y99.8 Other external cause status; Z68.20 Body mass index [BMI] 20.0-20.9, adult
CPT/HCPCS: 36415; 36573; 36589; 71045; 76604; 80048; 80053; 80061; 80076; 80202; 82550; 82553; 82607; 82746; 82962; 83036; 83540; 83550; 83605; 83735; 83880; 84100; 84145; 84439; 84443; 84484; 85025; 86705; 86709; 86850; 86900; 86920; 87340; 90935; 92610; 93005; 93970; 94640; 97165; 99291; A6261; C1725; C1769; J0696; J1815; J2185; J2997; J3370; J3490; J7030; J7050; J7121; J7608; P9016